=== PATIENT | female | born 1960 | race Caucasian/White ===

== ENCOUNTER 2022-05-01 07:34 | Inpatient (IN) ==
--- NOTE | 2022-05-01 08:26 | DR.DIZZY ---
HPI Time seen Time Seen by Provider: 05/01/22 08:26 HPI Comment HPI Comment: PATIENT IS 61YR OLD FEMALE WITH HISTORY OF HTN, DYSLIPIDEMIA, S/P TRIPLE VESSEL CABG ON 01/09/2022 IN ER WITH GENERALIZED WEAKNESS, CONFUSION AND DIZZINESS FOR SEVERAL DAYS. PATIENT HAVE NON HEALING WOUND MID LOWER CHEST Complaint Chief Complaint Doctor Comments: GENERALIZED WEAKNESS, CONFUSION AND DIZZINESS TIMES SEVERAL DAYS. COVID-19 Coronavirus risk:travel/contact w/high risk person: No Has patient experienced Coronavirus symptoms: No PMH PMH Past Medical History: Anxiety, Dyslipidemia, Hypertension, Kidney Stones and VT Past Surgical History: Yes Surgical History: CABG/Valve Surgery and Lithotripsy Family History Family Medical History: Coronary Artery Disease and Hypertension Social History Do you use any recreational Drugs:: No Travel Risk Coronavirus risk:travel/contact w/high risk person: No Has patient experienced Coronavirus symptoms: No PE Vital Signs Vitals: Temperature 98.7 F Pulse Rate [Right Radial] 76 Pulse Rate 78 Respiratory Rate 22 Blood Pressure [Right Arm] 121/57 Blood Pressure 150/64 O2 Sat by Pulse Oximetry 97 ROR Labs Reviewed Result Diagrams: 05/05/22 05:20 05/05/22 05:20 Laboratory: 05/01/22 09:15 Blood Blood Culture - Final Enterobacter Cloacae 05/01/22 10:00 Chest Wound Gram Stain - Final 05/01/22 10:00 Chest Wound Culture - Final Proteus Mirabilis Staphylococcus Aureus Enterobacter Cloacae 05/01/22 09:27 Blood Blood Culture - Preliminary 05/01/22 07:19 Urine,Catheterized Urine Culture - Final Proteus Mirabilis WBC 8.7 X10^3/uL (3.6-10.0) 05/02/22 04:00 RBC 4.02 X10^6/uL (3.5-5.4) 05/02/22 04:00 Hgb 10.7 g/dL (12.0-16.0) L 05/02/22 04:00 Hct 32.3 % (36.0-47.0) L 05/02/22 04:00 MCV 80.4 fL (80.0-100.0) 05/02/22 04:00 MCH 26.7 pg (27.0-34.0) L 05/02/22 04:00 MCHC 33.3 g/dL (33.0-35.0) 05/02/22 04:00 RDW 17.1 % (11.6-16.5) H 05/02/22 04:00 Plt Count 143 X10^3/uL (150.0-450.0) L 05/02/22 04:00 Plt Count Comment Decreased (ADEQUATE) A 05/02/22 04:00 MPV 11.2 fL (7.4-11.0) H 05/02/22 04:00 Neut % (Auto) 68.5 % (42.0-75.0) 05/02/22 04:00 Lymph % (Auto) 9.6 % (21.0-51.0) L 05/02/22 04:00 [place] % (Auto) 14.1 % (0.0-13.0) H 05/02/22 04:00 Eos % (Auto) 3.8 % (0.9-2.9) H 05/02/22 04:00 Baso % (Auto) 4.0 % (0.2-1.0) H 05/02/22 04:00 Neut # (Auto) 6.0 x10^3/uL (2.2-4.8) H 05/02/22 04:00 Lymph # (Auto) 0.8 X10^3/uL (1.3-2.9) L 05/02/22 04:00 [place] # (Auto) 1.2 x10^3/uL (0.3-0.8) H 05/02/22 04:00 Eos # (Auto) 0.3 x10^3/uL (0.0-0.2) H 05/02/22 04:00 Baso # (Auto) 0.3 X10^3/uL (0.0-0.1) H 05/02/22 04:00 Absolute Nucleated RBC 0.1 /100WBC 05/02/22 04:00 Total Counted 100 05/02/22 04:00 Neutrophils % (Manual) 78 % (39-76) H 05/02/22 04:00 Lymphocytes % (Manual) 15 % (13-43) 05/02/22 04:00 Monocytes % (Manual) 5 % (4-9) 05/02/22 04:00 Eosinophils % (Manual) 2 % (0-6) 05/02/22 04:00 Atypical Lymphocytes Few A 05/02/22 04:00 Plt Morphology Comment Normal (NORMAL) 05/02/22 04:00 RBC Morphology Abnormal (NORMAL) A 05/02/22 04:00 Hypochromasia Slight A 05/01/22 09:27 Anisocytosis Slight A 05/02/22 04:00 Microcytosis Slight A 05/01/22 09:27 Sodium 132 mmol/L (136-145) L 05/02/22 04:00 Corrected Sodium 133 mmol/L (136-145) L 05/02/22 04:00 Potassium 4.3 mmol/L (3.5-5.1) 05/02/22 04:00 Chloride 99 mmol/L (98-107) 05/02/22 04:00 Carbon Dioxide 25.3 mmol/L (21-32) 05/02/22 04:00 BUN 31 mg/dL (7-18) H 05/02/22 04:00 Creatinine 1.03 mg/dL (0.55-1.02) H 05/02/22 04:00 Est GFR (MDRD) Af Amer > 60 (>60) 05/02/22 04:00 Est GFR (MDRD) Non-Af 58 (>60) L 05/02/22 04:00 Glucose 128 mg/dL (65-99) H 05/02/22 04:00 POC Glucose (mg/dL) 123 mg/dL (65-99) H 05/02/22 11:08 Lactic Acid 1.6 mmol/L (0.4-2.0) 05/01/22 09:27 Calcium 8.6 mg/dL (8.5-10.1) 05/02/22 04:00 Corrected Calcium 10.2 mg/dL (8.5-10.1) H 05/02/22 04:00 Magnesium 1.9 mg/dL (1.7-2.9) 05/02/22 04:00 Total Bilirubin 0.40 mg/dL (0.2-1.0) 05/02/22 04:00 AST 42 Units/L (15-37) H 05/02/22 04:00 ALT 24 Units/L (12-78) 05/02/22 04:00 Alkaline Phosphatase 117 Units/L (46-116) H 05/02/22 04:00 Creatine Kinase 13 Units/L (26-192) L 05/01/22 21:25 CK-MB (CK-2) < 1.0 ng/mL (0-4.0) 05/01/22 21:25 CK/CKMB % Calc 7.7 % (<4) 05/01/22 21:25 Troponin I High Sens 12.6 ng/L (4.0-60.0) 05/01/22 21:25 Total Protein 6.8 g/dL (6.4-8.2) 05/02/22 04:00 Albumin 2.0 g/dL (3.4-5.0) L 05/02/22 04:00 Globulin 4.8 g/dL (2.5-4.5) H 05/02/22 04:00 Albumin/Globulin Ratio 0.4 Ratio (1.1-2.1) L 05/02/22 04:00 Specimen Type Catherized urine 05/01/22 07:19 Urine Color Yellow (YELLOW) 05/01/22 07:19 Urine Appearance Hazy (CLEAR) 05/01/22 07:19 Urine pH 8.0 (5.0 - 8.0) 05/01/22 07:19 Ur Specific [place] 1.010 (1.000-1.030) 05/01/22 07:19 Urine Protein 3+ (NEGATIVE) 05/01/22 07:19 Urine Glucose (UA) 3+ (NEGATIVE) 05/01/22 07:19 Urine Ketones Negative (NEGATIVE) 05/01/22 07:19 Urine Blood 3+ (NEGATIVE) 05/01/22 07:19 Urine Nitrite Positive (NEGATIVE) 05/01/22 07:19 Urine Bilirubin Negative (NEGATIVE) 05/01/22 07:19 Urine Urobilinogen Normal (NORMAL) 05/01/22 07:19 Ur Leukocyte Esterase 3+ (NEGATIVE) 05/01/22 07:19 Urine RBC 10-20 /HPF (0-3) A 05/01/22 07:19 Urine WBC Tntc /HPF (0-5) A 05/01/22 07:19 Ur Squamous Epith Cells Negative /HPF (NEGATIVE) 05/01/22 07:19 Urine Bacteria 4+ /HPF (NEGATIVE) 05/01/22 07:19 Ur Culture Indicated? Yes/culture set up 05/01/22 07:19 SARS-CoV-2 (PCR) Negative (NEGATIVE) 05/01/22 14:18 Opioid Opioid Risk Tool Age (Tahir box if 16-45): No History of Preadolescent Sexual Abuse: No Total: 0 Total Score Risk Category: Low Risk Copyright: Sesar MANCIA predicting aberrant behaviors Discharge Plan Diagnosis Discharge Problem: Acute dehydration, Acute hyponatremia, Infected surgical wound, UTI (urinary t ract infection) Discharge Plan Patient Disposition: ADMITTED INPATIENT Condition: Stable
[2022-05-01] MEDS ORDERED: ZOFRAN INJ 4 MG VIAL IVP ONE (08:29)
[2022-05-01 08:32] LABS: BILIRUBIN,URINE NEGATIVE (NEGATIVE); BLOOD/HEMOGLOBIN,URINE 3+ (NEGATIVE); GLUCOSE, URINE 3+ (NEGATIVE); KETONES,URINE NEGATIVE (NEGATIVE); LEUKOCYTE ESTERASE ,URINE 3+ (NEGATIVE); NITRITES,URINE POSITIVE (NEGATIVE); PROTEIN,URINE 3+ (NEGATIVE); UROBILINOGEN,URINE NORMAL (NORMAL)
[2022-05-01] MEDS ORDERED: ZOFRAN INJ 4 MG VIAL ONE (08:37)
[2022-05-01] MEDS ORDERED: NS 1,000 ML IV 1,000 ML ONE (08:38)
[2022-05-01 08:40] LABS: APPEARANCE,URINE HAZY (CLEAR); COLOR,URINE YELLOW (YELLOW)
[2022-05-01 08:41] LABS: BACTERIA,URINE 4+ /HPF (NEGATIVE); SQUAMOUS EPITHELIAL CELL,UR NEGATIVE /HPF (NEGATIVE)
[2022-05-01] MEDS ORDERED: NS 1,000 ML IV 1,000 ML IV SCH (09:00)
--- NOTE | 2022-05-01 09:24 | RAD ---
PROCEDURE: Chest X-ray 1 View .HISTORY: CHEST PAIN, WEAKNESS .TECHNIQUE: AP view .COMPARISON: 04/19/2022.TECHNICAL QUALITY: Lordotic positioning.FINDINGS:Unchanged heart size mildly enlarged with pacemaker on the left and previous sternotomy.Mediastinum and hilar regions show no masses or lymphadenopathy. Aortic arch calcifications.Normal central vascularity .Unchanged bibasilar atelectasis and small effusions. No definite consolidation or mass.No acute bony abnormality .IMPRESSION:1. Unchanged mild cardiomegaly.2. Unchanged atelectasis and pleural fluid lung bases.Electronically signed by: Kamron Wheeler (May 01, 2022 09:22:43)
[2022-05-01 09:49] LABS: BASOPHILS % (AUTO) 0.4 % (0.2-1.0); EOSINOPHILS # (AUTO) 0.1 x10^3/uL (0.0-0.2); EOSINOPHILS % (AUTO) 1.5 % (0.9-2.9); HEMATOCRIT 34.7 % (36.0-47.0); HEMOGLOBIN 11.4 g/dL (12.0-16.0); LYMPHOCYTES # (AUTO) 1.3 X10^3/uL (1.3-2.9); LYMPHOCYTES % (AUTO) 13.6 % (21.0-51.0); MEAN CORPUSCULAR HEMOGLOBIN 26.2 pg (27.0-34.0); MEAN CORPUSCULAR VOLUME 79.5 fL (80.0-100.0); MEAN PLATELET VOLUME 11.1 fL (7.4-11.0); MONOCYTES # (AUTO) 1.3 x10^3/uL (0.3-0.8); NEUTROPHILS # (AUTO) 6.6 x10^3/uL (2.2-4.8); NEUTROPHILS % (AUTO) 70.5 % (42.0-75.0); RED BLOOD COUNT 4.36 X10^6/uL (3.5-5.4); RED CELL DISTRIBUTION WIDTH 17.1 % (11.6-16.5); WHITE BLOOD COUNT 9.4 X10^3/uL (3.6-10.0)
[2022-05-01 09:56] LABS: LACTIC ACID 1.6 mmol/L (0.4-2.0)
[2022-05-01 10:00] LABS: ALANINE AMINOTRANSFERASE 22 Units/L (12-78); ALBUMIN 2.5 g/dL (3.4-5.0); ALKALINE PHOSPHATASE 129 Units/L (46-116); ASPARTATE AMINO TRANSFERASE 32 Units/L (15-37); BLOOD UREA NITROGEN 46 mg/dL (7-18); CALCIUM 9.2 mg/dL (8.5-10.1); CARBON DIOXIDE 29.3 mmol/L (21-32); CHLORIDE 95 mmol/L (98-107); CKMB % 5.9 % (<4); COR CA(FOR HYPOALB) 10.4 mg/dL (8.5-10.1); COR NA(FOR HYPERGLY) 132 mmol/L (136-145); CREATINE KINASE 17 Units/L (26-192); CREATINE KINASE MB < 1.0 ng/mL (0-4.0); CREATININE 1.48 mg/dL (0.55-1.02); SODIUM 129 mmol/L (136-145); TOTAL PROTEIN 7.8 g/dL (6.4-8.2); eGFR NON BLACK RACES 38 (>60)
[2022-05-01 10:10] LABS: PLATELET MORPHOLOGY COMMENT NORMAL (NORMAL)
[2022-05-01 10:11] LABS: ANISOCYTOSIS SLIGHT; HYPOCHROMASIA SLIGHT; MICROCYTOSIS SLIGHT
[2022-05-01] MEDS ORDERED: ROCEPHIN 1 GRAM IV PREMIX 1 G/50 ML IV.SOLN. IV ONE (12:44)
[2022-05-01] MEDS ORDERED: ROCEPHIN VIAL 1 GRAM ONE (12:50)
[2022-05-01] MEDS ORDERED: NS 50 ML IV 50 ML IV ONE (12:50)
[2022-05-01] MEDS ORDERED: PHARMACY CONSULT - VANCOMYCIN XX SCH (14:00)
[2022-05-01] MEDS: NS 1,000 ML IV 1,000 ML IV SCH (14:52)
[2022-05-01] MEDS ORDERED: VANCOMYCIN IV *PREMIX 1 G/200 ML BAG 1 G/200 ML PIGGYBACK IV SCH (17:00)
[2022-05-01] MEDS: ULTRAM PO PRN (17:26)
[2022-05-01] MEDS: XANAX PO PRN (18:18)
[2022-05-01] MEDS: SNACK - Diabetic Appropriate PO SCH (21:08)
[2022-05-01] MEDS ORDERED: LEXAPRO ONE (21:15)
[2022-05-01] MEDS: LEXAPRO PO SCH (21:15)
[2022-05-01] MEDS: NEURONTIN CAP 300 MG PO SCH (21:16)
[2022-05-01 22:12] LABS: CKMB % 7.7 % (<4); CREATINE KINASE 13 Units/L (26-192); CREATINE KINASE MB < 1.0 ng/mL (0-4.0)
[2022-05-02] MEDS: XANAX PO PRN (01:40)
[2022-05-02] MEDS: NS 1,000 ML IV 1,000 ML IV SCH ×3 (02:07→17:12)
[2022-05-02] MEDS: ULTRAM PO PRN ×2 (03:18→14:41)
[2022-05-02 05:08] LABS: BASOPHILS # (AUTO) 0.3 X10^3/uL (0.0-0.1); EOSINOPHILS # (AUTO) 0.3 x10^3/uL (0.0-0.2); EOSINOPHILS % (AUTO) 3.8 % (0.9-2.9); HEMATOCRIT 32.3 % (36.0-47.0); HEMOGLOBIN 10.7 g/dL (12.0-16.0); LYMPHOCYTES # (AUTO) 0.8 X10^3/uL (1.3-2.9); LYMPHOCYTES % (AUTO) 9.6 % (21.0-51.0); MEAN CORPUSCULAR HEMOGLOBIN 26.7 pg (27.0-34.0); MEAN CORPUSCULAR HGB CONC 33.3 g/dL (33.0-35.0); MEAN CORPUSCULAR VOLUME 80.4 fL (80.0-100.0); MEAN PLATELET VOLUME 11.2 fL (7.4-11.0); MONOCYTES # (AUTO) 1.2 x10^3/uL (0.3-0.8); MONOCYTES % (AUTO) 14.1 % (0.0-13.0); NEUTROPHILS % (AUTO) 68.5 % (42.0-75.0); RED BLOOD COUNT 4.02 X10^6/uL (3.5-5.4); RED CELL DISTRIBUTION WIDTH 17.1 % (11.6-16.5); WHITE BLOOD COUNT 8.7 X10^3/uL (3.6-10.0)
[2022-05-02 05:29] LABS: ALANINE AMINOTRANSFERASE 24 Units/L (12-78); ALKALINE PHOSPHATASE 117 Units/L (46-116); ASPARTATE AMINO TRANSFERASE 42 Units/L (15-37); BLOOD UREA NITROGEN 31 mg/dL (7-18); CALCIUM 8.6 mg/dL (8.5-10.1); CARBON DIOXIDE 25.3 mmol/L (21-32); CHLORIDE 99 mmol/L (98-107); COR CA(FOR HYPOALB) 10.2 mg/dL (8.5-10.1); COR NA(FOR HYPERGLY) 133 mmol/L (136-145); CREATININE 1.03 mg/dL (0.55-1.02); MAGNESIUM 1.9 mg/dL (1.7-2.9); SODIUM 132 mmol/L (136-145); TOTAL PROTEIN 6.8 g/dL (6.4-8.2); eGFR NON BLACK RACES 58 (>60)
[2022-05-02] MEDS: NEURONTIN CAP 300 MG PO SCH ×3 (05:43→21:00)
[2022-05-02 05:53] LABS: ANISOCYTOSIS SLIGHT; PLATELET MORPHOLOGY COMMENT NORMAL (NORMAL)
[2022-05-02] MEDS ORDERED: ROCEPHIN VIAL 1 GRAM 1 G in NS 100 ML IV 100 ML IV SCH (09:00)
[2022-05-02] MEDS: VANCOMYCIN IV *PREMIX 1 G/200 ML BAG 1 G/200 ML PIGGYBACK IV SCH ×2 (09:51→20:34)
--- NOTE | 2022-05-02 10:24 | DR.H&P ---
H&P History & Physical for Day of: H&P Date: 05/02/22 Chief Complaint Chief Complaint: Weakness, Dizziness Non-healing wound Allergies Allergies Allergy/AdvReac Type Severity Reaction Status Date / Time No Known Drug Allergies Allergy Verified 05/01/22 09:52 History of Present Illness History of Present Illness: Pt is a 61 year old female past medical history of C ABGx3(02/2022), HFrEF(EF 40-45%), Atrial fibrillation, Pacemaker, DMT2, admitted after presenting with symptoms of generalized weakness, dizziness, non-healing mid chest wound. Pt is a poor historian but states that she has been feeling these symptoms for the past week. Her wound appears to have been there for longer. On exam patient has two visible small circular open wounds that have purulent discharge. Labs/imaging: Wbc 8.7, Hgb 10.7, Plt 143, Na 133, K 4.3, Creatinine 1.03, Glucose 128, UA c/w infection, Urine/Wound/Blood cultures pending. CXR was obtained that revealed: 1. Unchanged mild cardiomegaly. 2.Unchanged atelectasis and pleural fluid lung bases. Pt was started on gentle hydration due to history of heart failure, IVF NS@50ml/h, IV antibiotics Vancomycin and Rocephin for cystitis and wound with purulent discharge. Home medications were restarted, along with SSI. Will consult general surgery for further evaluation of wound and order CT chest for further classification and extent, including ruling out abscess. Continue to closely monitor and follow up labs/imaging. Past Medical History Past Medical History: Anxiety, Dyslipidemia, Hypertension, Kidney Stones and DC Past Surgical History Surgical History: CABG/Valve Surgery Family History Family Medical History: Diabetes Mellitus, DC and Hypertension Social History Does patient currently use any type of tobacco product: No Have you used tobacco products in the last 12 months: No Type of Tobacco Use: None Does any household member use tobacco: Yes (oldest son) Alcohol Use: None Drug Use: None Medications Home Medications: No Known Drug Allergies Allergy (Verified 05/01/22 09:52) CONTINUE taking the following medications alprazolam 0.25 mg tablet 0.25 mg PO TID PRN 05/01/22 [History] amiodarone 200 mg tablet 200 mg PO BID 05/01/22 [History] aspirin 81 mg tablet,delayed release 81 mg PO QDAY 05/01/22 [History] atorvastatin 40 mg tablet 40 mg PO QDAY 05/01/22 [History] benzonatate 100 mg capsule 100 mg PO TID PRN 05/01/22 [History] bisoprolol fumarate 5 mg tablet 5 mg PO BID 05/01/22 [History] escitalopram oxalate 5 mg tablet 5 mg PO QACDINNER 05/01/22 [History] furosemide 20 mg tablet 20 mg PO BID 05/01/22 [History] gabapentin 300 mg capsule 300 mg PO TID 05/01/22 [History] insulin glargine U-300 conc 300 unit/mL (3 mL) subcutaneous pen (Toujeo Max U- 300 SoloStar) 55 unit subcut QDAY 05/01/22 [History] potassium chloride 10 mEq capsule,extended release 20 meq PO BID 05/01/22 [H istory] tramadol 50 mg tablet 50 mg PO Q6H PRN 05/01/22 [History] zolpidem 5 mg tablet (Ambien) 5 mg PO QHS PRN 05/01/22 [History] Labs Result Diagrams: 05/02/22 04:00 05/02/22 04:00 Labs: 05/01/22 10:00 Chest Wound Gram Stain - Final 05/01/22 10:00 Chest Wound Culture - Preliminary 05/01/22 07:19 Urine,Catheterized Urine Culture - Preliminary 05/01/22 09:15 Blood Blood Culture - Preliminary Laboratory WBC 8.7 X10^3/uL (3.6-10.0) 05/02/22 04:00 RBC 4.02 X10^6/uL (3.5-5.4) 05/02/22 04:00 Hgb 10.7 g/dL (12.0-16.0) L 05/02/22 04:00 Hct 32.3 % (36.0-47.0) L 05/02/22 04:00 MCV 80.4 fL (80.0-100.0) 05/02/22 04:00 MCH 26.7 pg (27.0-34.0) L 05/02/22 04:00 MCHC 33.3 g/dL (33.0-35.0) 05/02/22 04:00 RDW 17.1 % (11.6-16.5) H 05/02/22 04:00 Plt Count 143 X10^3/uL (150.0-450.0) L 05/02/22 04:00 Plt Count Comment Decreased (ADEQUATE) A 05/02/22 04:00 MPV 11.2 fL (7.4-11.0) H 05/02/22 04:00 Neut % (Auto) 68.5 % (42.0-75.0) 05/02/22 04:00 Lymph % (Auto) 9.6 % (21.0-51.0) L 05/02/22 04:00 [place] % (Auto) 14.1 % (0.0-13.0) H 05/02/22 04:00 Eos % (Auto) 3.8 % (0.9-2.9) H 05/02/22 04:00 Baso % (Auto) 4.0 % (0.2-1.0) H 05/02/22 04:00 Neut # (Auto) 6.0 x10^3/uL (2.2-4.8) H 05/02/22 04:00 Lymph # (Auto) 0.8 X10^3/uL (1.3-2.9) L 05/02/22 04:00 [place] # (Auto) 1.2 x10^3/uL (0.3-0.8) H 05/02/22 04:00 Eos # (Auto) 0.3 x10^3/uL (0.0-0.2) H 05/02/22 04:00 Baso # (Auto) 0.3 X10^3/uL (0.0-0.1) H 05/02/22 04:00 Absolute Nucleated RBC 0.1 /100WBC 05/02/22 04:00 Total Counted 100 05/02/22 04:00 Neutrophils % (Manual) 78 % (39-76) H 05/02/22 04:00 Lymphocytes % (Manual) 15 % (13-43) 05/02/22 04:00 Monocytes % (Manual) 5 % (4-9) 05/02/22 04:00 Eosinophils % (Manual) 2 % (0-6) 05/02/22 04:00 Atypical Lymphocytes Few A 05/02/22 04:00 Plt Morphology Comment Normal (NORMAL) 05/02/22 04:00 RBC Morphology Abnormal (NORMAL) A 05/02/22 04:00 Hypochromasia Slight A 05/01/22 09:27 Anisocytosis Slight A 05/02/22 04:00 Microcytosis Slight A 05/01/22 09:27 Sodium 132 mmol/L (136-145) L 05/02/22 04:00 Corrected Sodium 133 mmol/L (136-145) L 05/02/22 04:00 Potassium 4.3 mmol/L (3.5-5.1) 05/02/22 04:00 Chloride 99 mmol/L (98-107) 05/02/22 04:00 Carbon Dioxide 25.3 mmol/L (21-32) 05/02/22 04:00 BUN 31 mg/dL (7-18) H 05/02/22 04:00 Creatinine 1.03 mg/dL (0.55-1.02) H 05/02/22 04:00 Est GFR (MDRD) Af Amer > 60 (>60) 05/02/22 04:00 Est GFR (MDRD) Non-Af 58 (>60) L 05/02/22 04:00 Glucose 128 mg/dL (65-99) H 05/02/22 04:00 POC Glucose (mg/dL) 137 mg/dL (65-99) H 05/01/22 21:06 Lactic Acid 1.6 mmol/L (0.4-2.0) 05/01/22 09:27 Calcium 8.6 mg/dL (8.5-10.1) 05/02/22 04:00 Corrected Calcium 10.2 mg/dL (8.5-10.1) H 05/02/22 04:00 Magnesium 1.9 mg/dL (1.7-2.9) 05/02/22 04:00 Total Bilirubin 0.40 mg/dL (0.2-1.0) 05/02/22 04:00 AST 42 Units/L (15-37) H 05/02/22 04:00 ALT 24 Units/L (12-78) 05/02/22 04:00 Alkaline Phosphatase 117 Units/L (46-116) H 05/02/22 04:00 Creatine Kinase 13 Units/L (26-192) L 05/01/22 21:25 CK-MB (CK-2) < 1.0 ng/mL (0-4.0) 05/01/22 21:25 CK/CKMB % Calc 7.7 % (<4) 05/01/22 21:25 Troponin I High Sens 12.6 ng/L (4.0-60.0) 05/01/22 21:25 Total Protein 6.8 g/dL (6.4-8.2) 05/02/22 04:00 Albumin 2.0 g/dL (3.4-5.0) L 05/02/22 04:00 Globulin 4.8 g/dL (2.5-4.5) H 05/02/22 04:00 Albumin/Globulin Ratio 0.4 Ratio (1.1-2.1) L 05/02/22 04:00 Specimen Type Catherized urine 05/01/22 07:19 Urine Color Yellow (YELLOW) 05/01/22 07:19 Urine Appearance Hazy (CLEAR) 05/01/22 07:19 Urine pH 8.0 (5.0 - 8.0) 05/01/22 07:19 Ur Specific [place] 1.010 (1.000-1.030) 05/01/22 07:19 Urine Protein 3+ (NEGATIVE) 05/01/22 07:19 Urine Glucose (UA) 3+ (NEGATIVE) 05/01/22 07:19 Urine Ketones Negative (NEGATIVE) 05/01/22 07:19 Urine Blood 3+ (NEGATIVE) 05/01/22 07:19 Urine Nitrite Positive (NEGATIVE) 05/01/22 07:19 Urine Bilirubin Negative (NEGATIVE) 05/01/22 07:19 Urine Urobilinogen Normal (NORMAL) 05/01/22 07:19 Ur Leukocyte Esterase 3+ (NEGATIVE) 05/01/22 07:19 Urine RBC 10-20 /HPF (0-3) A 05/01/22 07:19 Urine WBC Tntc /HPF (0-5) A 05/01/22 07:19 Ur Squamous Epith Cells Negative /HPF (NEGATIVE) 05/01/22 07:19 Urine Bacteria 4+ /HPF (NEGATIVE) 05/01/22 07:19 Ur Culture Indicated? Yes/culture set up 05/01/22 07:19 SARS-CoV-2 (PCR) Negative (NEGATIVE) 05/01/22 14:18 Review of Systems Constitutional: Weakness Eyes: No Symptoms Reported ENT: No Symptoms Reported Respiratory: No Symptoms Reported Cardiovascular: No Symptoms Reported Gastrointestinal: No Symptoms Reported Genitourinary: No Symptoms Reported Musculoskeletal: No Symptoms Reported Skin: Wound (mid chest) Neurological: No Symptoms Reported Physical Exam Vital Signs: Temperature 98.4 F Pulse Rate [Right Radial] 76 Pulse Rate 78 Respiratory Rate 20 Blood Pressure [Right Arm] 126/57 Blood Pressure 150/64 O2 Sat by Pulse Oximetry 96 Oriented: Normal Eyes: Normal Ear: Normal Nose: Normal Throat: Normal Respiratory: Clear Throughout Cardiovascular: Normal : Normal Auscultation: Bowel Sounds: Normal Palpation: Normal Tenderness: Normal Skin: Wound (two circular wounds with purulent discharge mid chest) Musculoskeletal: Normal Psychiatric: Normal Mood Description: Calm and Appropriate Affect: Normal Speech Pattern: Clear and Appropriate Assessment/Plan (1) Acute dehydration: Status: Acute (2) Acute hyponatremia: Status: Acute (3) Infected surgical wound: Status: Acute (4) UTI (urinary tract infection): Status: Acute Review H&P Reviewed: Yes Patient was examined?: Yes
[2022-05-02] MEDS: LOVENOX INJ 40 MG SYR SC SCH (10:54)
[2022-05-02] MEDS: ASPIRIN EC 81 MG PO SCH (10:54)
[2022-05-02] MEDS: CORDARONE TAB 200 MG PO SCH ×2 (10:54→20:35)
[2022-05-02] MEDS: LIPITOR TAB 40 MG PO SCH (10:54)
[2022-05-02] MEDS: ZEBETA TAB 5 MG PO SCH ×2 (10:55→20:34)
[2022-05-02] MEDS ORDERED: NS 100 ML IV 100 ML ONE (12:21)
[2022-05-02] MEDS: LASIX PO SCH (14:18)
--- NOTE | 2022-05-02 16:09 | CT ---
HISTORYCHEST WALL WOUND R/O ABCESSSTUDYCHEST WITH CONCOMPARISONNone available.TECHNIQUEAxial CT images of the chest were obtained after the administration of 100 mL Omnipaque 350 IV contrast. Images were reformatted into the coronal and sagittal planes for further evaluation.Radiation dose: 581.40 mGy-cm total DLPFINDINGSSmall pericardial effusion.Cardiac chambers are mildly enlarged.Pacemaker wires in place.Status post median sternotomy.Dehiscence of the median sternotomy with flocculent material throughout the space between the margins of the sternum from the thoracic inlet to the xiphoid process; consistent with an abscess. Collection measures up to 3 cm wide at the upper portion of the mediastinum and extends to the anterior aspect of the left heart border, at the level of the main pulmonary artery, measuring up to 2 cm in thickness. Cutaneous defect along the inferior margin of the sternum, at the level of the xiphoid process, with a tract towards the skin and bandage material in place.Thyroid appears normal.Central airways are widely patent.Esophagus appears normal.Limited evaluation of the upper abdomen is unremarkable.Large bilateral partially loculated pleural effusions with adjacent atelectasis.No pneumothorax.IMPRESSION1. Dehiscence of the median sternotomy with a flocculent collection throughout the space between the margins of the sternum from the thoracic inlet to the xiphoid process; consistent with an extensive abscess.2. Large partially loculated pleural effusions with adjacent atelectasis.Electronically signed by: Jassi Singh (May 02, 2022 16:08:17)
[2022-05-02] MEDS: SNACK - Diabetic Appropriate PO SCH (20:07)
[2022-05-02] MEDS ORDERED: LEXAPRO ONE (20:21)
[2022-05-02] MEDS: LEXAPRO PO SCH (20:34)
[2022-05-02] MEDS: MICRO K EXTEN CAP 10 MEQ PO SCH (20:35)
[2022-05-02] MEDS ORDERED: AMBIEN PO SCH (21:00)
[2022-05-03] MEDS: XANAX PO PRN ×3 (00:49→18:46)
[2022-05-03] MEDS: NS 1,000 ML IV 1,000 ML IV SCH ×2 (04:26→18:47)
[2022-05-03 04:36] LABS: BASOPHILS # (AUTO) 0.1 X10^3/uL (0.0-0.1); BASOPHILS % (AUTO) 1.5 % (0.2-1.0); EOSINOPHILS # (AUTO) 0.2 x10^3/uL (0.0-0.2); EOSINOPHILS % (AUTO) 2.3 % (0.9-2.9); HEMATOCRIT 32.1 % (36.0-47.0); HEMOGLOBIN 10.3 g/dL (12.0-16.0); LYMPHOCYTES % (AUTO) 13.1 % (21.0-51.0); MEAN CORPUSCULAR HEMOGLOBIN 25.8 pg (27.0-34.0); MEAN CORPUSCULAR HGB CONC 32.2 g/dL (33.0-35.0); MEAN CORPUSCULAR VOLUME 80.1 fL (80.0-100.0); MEAN PLATELET VOLUME 10.6 fL (7.4-11.0); MONOCYTES # (AUTO) 1.1 x10^3/uL (0.3-0.8); NEUTROPHILS # (AUTO) 5.3 x10^3/uL (2.2-4.8); NEUTROPHILS % (AUTO) 69.1 % (42.0-75.0); RED BLOOD COUNT 4.01 X10^6/uL (3.5-5.4); RED CELL DISTRIBUTION WIDTH 17.3 % (11.6-16.5); WHITE BLOOD COUNT 7.7 X10^3/uL (3.6-10.0)
[2022-05-03 04:49] LABS: ALANINE AMINOTRANSFERASE 22 Units/L (12-78); ALBUMIN 1.9 g/dL (3.4-5.0); ALKALINE PHOSPHATASE 125 Units/L (46-116); ASPARTATE AMINO TRANSFERASE 36 Units/L (15-37); BLOOD UREA NITROGEN 24 mg/dL (7-18); CALCIUM 8.8 mg/dL (8.5-10.1); CARBON DIOXIDE 26.1 mmol/L (21-32); CHLORIDE 100 mmol/L (98-107); COR CA(FOR HYPOALB) 10.5 mg/dL (8.5-10.1); CREATININE 0.88 mg/dL (0.55-1.02); SODIUM 133 mmol/L (136-145); TOTAL PROTEIN 6.5 g/dL (6.4-8.2); eGFR NON BLACK RACES > 60 (>60)
[2022-05-03] MEDS: NEURONTIN CAP 300 MG PO SCH ×3 (05:34→21:01)
[2022-05-03] MEDS: CORDARONE TAB 200 MG PO SCH ×3 (07:37→20:37)
[2022-05-03] MEDS: ULTRAM PO PRN ×2 (07:54→14:16)
--- NOTE | 2022-05-03 08:08 | PCM.PROG ---
Progress Note Progress Note for Day of Date of Exam: 05/03/22 Subjective Subjective: Pt is a 61 year old female past medical history of CABGx3(02/2022), HFrEF(EF 40-45%), Atrial fibrillation, Pacemaker, DMT2, admitted for acute cystitis, non-healing mid chest wound. This morning she appears to be more alert. She is still having copious discharge from sternum. Labs/imaging: Wbc 7.7, Hgb 10.3, Plt 177, Na 133, K 4.5, Creatinine 0.88, Glucose 98, Urine culture positive for proteus mirabilis, Wound culture positive for staph aureus, Blood cultures prelim positive for gram negative rods. CT chest was obtained that revealed: 1. Dehiscence of the median sternotomy with a flocculent collection throughout the space between the margins of the sternum from the thoracic inlet to the xiphoid process; consistent with an extensive abscess. 2. Large partially loculated pleural effusions with adjacent atelectasis. Pt is currently receiving: IVF NS@50ml/h, IV antibiotics Vancomycin, Rocephin. Will change rocephin to zosyn. Home medications were resumed, and patient is on SSI. General surgery consulted for further evaluation of abscess seen on CT chest, follow up recommendations. Will need to contract hospital/cardiothoracic surgeon in [place], [place] where procedure was performed for possible transfer. Continue to closely monitor and follow up labs/imaging. Time spent on clinical assessment, reviewing labs and imaging, decision making, and documentation greater than 45 minutes. Past Medical Family Social History Allergies: Allergies No Known Drug Allergies Allergy (Verified 05/01/22 09:52) Review of Systems ROS: No change since H&P Vital Signs and I&O's Vital Signs: Temperature 98.5 F Pulse Rate [Right Radial] 82 Pulse Rate 78 Respiratory Rate 20 Blood Pressure [Right Arm] 149/83 Blood Pressure 150/64 O2 Sat by Pulse Oximetry 96 Intake and Output: Intake & Output 04/30/22 05/01/22 05/02/22 05/03/22 23:59 23:59 23:59 23:59 Intake Total 480 / 480 4478 / 4478 980 / 980 Output Total 625 / 625 1150 / 1150 225 / 225 Balance -145 / -145 3328 / 3328 755 / 755 Physical Exam Oriented: Normal Eyes: Normal Ear: Normal Nose: Normal Throat: Normal Cardiovascular: Normal : Normal Auscultation: Bowel Sounds: Normal Tenderness: Normal Skin: Wound (dehiscence sternum) Musculoskeletal: Normal Psychiatric: Normal Mood Description: Calm and Appropriate Affect: Normal Speech Pattern: Clear and Appropriate Laboratory and Diagnostics Result Diagrams: 05/03/22 04:00 05/03/22 09:05 Labs: 05/01/22 10:00 Chest Wound Gram Stain - Final 05/01/22 10:00 Chest Wound Culture - Preliminary 05/01/22 07:19 Urine,Catheterized Urine Culture - Preliminary 05/01/22 09:15 Blood Blood Culture - Preliminary Laboratory WBC 7.7 X10^3/uL (3.6-10.0) 05/03/22 04:00 RBC 4.01 X10^6/uL (3.5-5.4) 05/03/22 04:00 Hgb 10.3 g/dL (12.0-16.0) L 05/03/22 04:00 Hct 32.1 % (36.0-47.0) L 05/03/22 04:00 MCV 80.1 fL (80.0-100.0) 05/03/22 04:00 MCH 25.8 pg (27.0-34.0) L 05/03/22 04:00 MCHC 32.2 g/dL (33.0-35.0) L 05/03/22 04:00 RDW 17.3 % (11.6-16.5) H 05/03/22 04:00 Plt Count 177 X10^3/uL (150.0-450.0) 05/03/22 04:00 Plt Count Comment Decreased (ADEQUATE) A 05/02/22 04:00 MPV 10.6 fL (7.4-11.0) 05/03/22 04:00 Neut % (Auto) 69.1 % (42.0-75.0) 05/03/22 04:00 Lymph % (Auto) 13.1 % (21.0-51.0) L 05/03/22 04:00 [place] % (Auto) 14.0 % (0.0-13.0) H 05/03/22 04:00 Eos % (Auto) 2.3 % (0.9-2.9) 05/03/22 04:00 Baso % (Auto) 1.5 % (0.2-1.0) H 05/03/22 04:00 Neut # (Auto) 5.3 x10^3/uL (2.2-4.8) H 05/03/22 04:00 Lymph # (Auto) 1.0 X10^3/uL (1.3-2.9) L 05/03/22 04:00 [place] # (Auto) 1.1 x10^3/uL (0.3-0.8) H 05/03/22 04:00 Eos # (Auto) 0.2 x10^3/uL (0.0-0.2) 05/03/22 04:00 Baso # (Auto) 0.1 X10^3/uL (0.0-0.1) 05/03/22 04:00 Absolute Nucleated RBC 0.0 /100WBC 05/03/22 04:00 Total Counted 100 05/02/22 04:00 Neutrophils % (Manual) 78 % (39-76) H 05/02/22 04:00 Lymphocytes % (Manual) 15 % (13-43) 05/02/22 04:00 Monocytes % (Manual) 5 % (4-9) 05/02/22 04:00 Eosinophils % (Manual) 2 % (0-6) 05/02/22 04:00 Atypical Lymphocytes Few A 05/02/22 04:00 Plt Morphology Comment Normal (NORMAL) 05/02/22 04:00 RBC Morphology Abnormal (NORMAL) A 05/02/22 04:00 Hypochromasia Slight A 05/01/22 09:27 Anisocytosis Slight A 05/02/22 04:00 Microcytosis Slight A 05/01/22 09:27 Sodium 133 mmol/L (136-145) L 05/03/22 04:00 Corrected Sodium TNP 05/03/22 04:00 Potassium 4.5 mmol/L (3.5-5.1) 05/03/22 04:00 Chloride 100 mmol/L (98-107) 05/03/22 04:00 Carbon Dioxide 26.1 mmol/L (21-32) 05/03/22 04:00 BUN 24 mg/dL (7-18) H 05/03/22 04:00 Creatinine 0.88 mg/dL (0.55-1.02) 05/03/22 04:00 Est GFR (MDRD) Af Amer > 60 (>60) 05/03/22 04:00 Est GFR (MDRD) Non-Af > 60 (>60) 05/03/22 04:00 Glucose 98 mg/dL (65-99) 05/03/22 04:00 POC Glucose (mg/dL) 111 mg/dL (65-99) H 05/02/22 19:08 Lactic Acid 1.6 mmol/L (0.4-2.0) 05/01/22 09:27 Calcium 8.8 mg/dL (8.5-10.1) 05/03/22 04:00 Corrected Calcium 10.5 mg/dL (8.5-10.1) H 05/03/22 04:00 Magnesium 1.9 mg/dL (1.7-2.9) 05/02/22 04:00 Total Bilirubin 0.40 mg/dL (0.2-1.0) 05/03/22 04:00 AST 36 Units/L (15-37) 05/03/22 04:00 ALT 22 Units/L (12-78) 05/03/22 04:00 Alkaline Phosphatase 125 Units/L (46-116) H 05/03/22 04:00 Creatine Kinase 13 Units/L (26-192) L 05/01/22 21:25 CK-MB (CK-2) < 1.0 ng/mL (0-4.0) 05/01/22 21:25 CK/CKMB % Calc 7.7 % (<4) 05/01/22 21:25 Troponin I High Sens 12.6 ng/L (4.0-60.0) 05/01/22 21:25 Total Protein 6.5 g/dL (6.4-8.2) 05/03/22 04:00 Albumin 1.9 g/dL (3.4-5.0) L 05/03/22 04:00 Globulin 4.6 g/dL (2.5-4.5) H 05/03/22 04:00 Albumin/Globulin Ratio 0.4 Ratio (1.1-2.1) L 05/03/22 04:00 Specimen Type Catherized urine 05/01/22 07:19 Urine Color Yellow (YELLOW) 05/01/22 07:19 Urine Appearance Hazy (CLEAR) 05/01/22 07:19 Urine pH 8.0 (5.0 - 8.0) 05/01/22 07:19 Ur Specific [place] 1.010 (1.000-1.030) 05/01/22 07:19 Urine Protein 3+ (NEGATIVE) 05/01/22 07:19 Urine Glucose (UA) 3+ (NEGATIVE) 05/01/22 07:19 Urine Ketones Negative (NEGATIVE) 05/01/22 07:19 Urine Blood 3+ (NEGATIVE) 05/01/22 07:19 Urine Nitrite Positive (NEGATIVE) 05/01/22 07:19 Urine Bilirubin Negative (NEGATIVE) 05/01/22 07:19 Urine Urobilinogen Normal (NORMAL) 05/01/22 07:19 Ur Leukocyte Esterase 3+ (NEGATIVE) 05/01/22 07:19 Urine RBC 10-20 /HPF (0-3) A 05/01/22 07:19 Urine WBC Tntc /HPF (0-5) A 05/01/22 07:19 Ur Squamous Epith Cells Negative /HPF (NEGATIVE) 05/01/22 07:19 Urine Bacteria 4+ /HPF (NEGATIVE) 05/01/22 07:19 Ur Culture Indicated? Yes/culture set up 05/01/22 07:19 SARS-CoV-2 (PCR) Negative (NEGATIVE) 05/01/22 14:18 Plan (1) Dehiscence of closure of sternum or sternotomy: Status: Acute (2) Acute cystitis: Status: Acute (3) Acute dehydration: Status: Acute (4) Acute hyponatremia: Status: Acute (5) Infected surgical wound: Status: Acute
[2022-05-03] MEDS ORDERED: PHARMACY COMMENT IV ONE (08:30)
[2022-05-03] MEDS: ZOSYN VIAL 3.375 GRAMS 3.375 G in NS 100 ML IV 100 ML IV SCH ×3 (08:38→21:36)
[2022-05-03] MEDS: LOVENOX INJ 40 MG SYR SC SCH (08:42)
[2022-05-03] MEDS: MICRO K EXTEN CAP 10 MEQ PO SCH ×2 (08:43→20:57)
[2022-05-03] MEDS: ASPIRIN EC 81 MG PO SCH (08:43)
[2022-05-03] MEDS: LIPITOR TAB 40 MG PO SCH (08:44)
[2022-05-03] MEDS: ZEBETA TAB 5 MG PO SCH ×2 (08:44→20:42)
[2022-05-03] MEDS: VANCOMYCIN IV *PREMIX 1 G/200 ML BAG 1 G/200 ML PIGGYBACK IV SCH ×2 (08:44→20:35)
[2022-05-03] MEDS: LASIX PO SCH ×2 (08:47→14:16)
[2022-05-03 09:44] LABS: CREATININE 0.88 mg/dL (0.55-1.02); VANCOMYCIN,TROUGH 13.7 ug/mL (15-20)
[2022-05-03] MEDS ORDERED: LEXAPRO ONE (19:48)
[2022-05-03] MEDS: LEXAPRO PO SCH (20:38)
[2022-05-03] MEDS: RESTORIL CAP 15 MG PO SCH (20:41)
[2022-05-03] MEDS: SNACK - Diabetic Appropriate PO SCH (20:56)
[2022-05-04] MEDS: XANAX PO PRN ×3 (00:08→14:06)
[2022-05-04] MEDS: ULTRAM PO PRN ×4 (00:08→20:40)
[2022-05-04] MEDS: ZOSYN VIAL 3.375 GRAMS 3.375 G in NS 100 ML IV 100 ML IV SCH (05:13)
[2022-05-04] MEDS: NEURONTIN CAP 300 MG PO SCH ×3 (05:13→20:29)
[2022-05-04 06:17] LABS: BASOPHILS % (AUTO) 0.6 % (0.2-1.0); EOSINOPHILS # (AUTO) 0.1 x10^3/uL (0.0-0.2); EOSINOPHILS % (AUTO) 1.9 % (0.9-2.9); HEMOGLOBIN 11.1 g/dL (12.0-16.0); LYMPHOCYTES % (AUTO) 16.6 % (21.0-51.0); MEAN CORPUSCULAR HEMOGLOBIN 26.4 pg (27.0-34.0); MEAN CORPUSCULAR HGB CONC 32.5 g/dL (33.0-35.0); MEAN CORPUSCULAR VOLUME 81.1 fL (80.0-100.0); MEAN PLATELET VOLUME 9.3 fL (7.4-11.0); MONOCYTES # (AUTO) 0.9 x10^3/uL (0.3-0.8); MONOCYTES % (AUTO) 15.7 % (0.0-13.0); NEUTROPHILS # (AUTO) 3.9 x10^3/uL (2.2-4.8); NEUTROPHILS % (AUTO) 65.2 % (42.0-75.0); RED CELL DISTRIBUTION WIDTH 17.5 % (11.6-16.5); WHITE BLOOD COUNT 6.1 X10^3/uL (3.6-10.0)
[2022-05-04 06:28] LABS: ALANINE AMINOTRANSFERASE 20 Units/L (12-78); ALKALINE PHOSPHATASE 141 Units/L (46-116); ASPARTATE AMINO TRANSFERASE 37 Units/L (15-37); BLOOD UREA NITROGEN 24 mg/dL (7-18); CALCIUM 8.9 mg/dL (8.5-10.1); CARBON DIOXIDE 26.6 mmol/L (21-32); CHLORIDE 101 mmol/L (98-107); COR CA(FOR HYPOALB) 10.5 mg/dL (8.5-10.1); COR NA(FOR HYPERGLY) 134 mmol/L (136-145); MAGNESIUM 1.7 mg/dL (1.7-2.9); SODIUM 133 mmol/L (136-145); TOTAL PROTEIN 6.8 g/dL (6.4-8.2); eGFR NON BLACK RACES 53 (>60)
[2022-05-04] MEDS: VANCOMYCIN IV *PREMIX 1 G/200 ML BAG 1 G/200 ML PIGGYBACK IV SCH ×2 (09:11→20:41)
[2022-05-04] MEDS: ZEBETA TAB 5 MG PO SCH ×2 (09:12→20:31)
[2022-05-04] MEDS: ASPIRIN EC 81 MG PO SCH (09:12)
[2022-05-04] MEDS: LIPITOR TAB 40 MG PO SCH (09:12)
[2022-05-04] MEDS: NS 1,000 ML IV 1,000 ML IV SCH ×2 (09:13→20:40)
[2022-05-04] MEDS: MICRO K EXTEN CAP 10 MEQ PO SCH ×3 (09:13→23:09)
[2022-05-04] MEDS: LASIX PO SCH ×2 (09:14→14:05)
[2022-05-04] MEDS: LOVENOX INJ 40 MG SYR SC SCH (10:07)
[2022-05-04] MEDS: CORDARONE TAB 200 MG PO SCH ×2 (10:07→20:32)
--- NOTE | 2022-05-04 11:36 | PCM.PROG ---
Progress Note Progress Note for Day of Date of Exam: 05/04/22 Subjective Subjective: Pt is a 61 year old female past medical history of CABGx3(02/2022), HFrEF(EF 40-45%), Atrial fibrillation, Pacemaker, DMT2, admitted for acute cystitis and dehiscence of the median sternotomy with a flocculent collection throughout the space between the margins of the sternum from the thoracic inlet to the xiphoid process; consistent with an extensive abscess that was noted on CT chest. This morning she remains alert. She is still having copious discharge from sternum. Labs/imaging: Wbc 6.1, Hgb 11.1, Plt 216, Na 134, K 4.7, Creatinine 1.10, Glucose 129, Urine culture positive for proteus mirabilis, Wound culture positive for staph aureus, proteus mirabilis, and enterobacter cloacae. Blood cultures prelim positive for gram negative rods 1/2. Pt is currently recieving: IVF NS@50ml/h, IV antibiotics Vancomycin, Rocephin. Will change rocephin to Levoquin for empiric coverage. Home medications were resumed, and patient is on SSI. General surgery consulted, is helping with wound care but recommends transfer to tertiary care facility. Multiple attempts made to contact [facility] in [place], [place] through Transfer line and was told no bed available and to retry 4-6 hours later. Attempted to contact patient's cardiothoracic surgeon Dr Zoran Bradford that performed CABG in February 2022 with now post-op complication. Was told that he was not available. Charge nurse contacted his clinic multiple times so that I may discuss his patient. Finally, was contacted by physician. He stated that there is nothing he can do for patient even though he understood that we are only a critical access hospital and that this is a post-op complication of one of his patients. [place] told either it was too risky for them to attempt procedure on another surgeon's patient or that facility was on diversion and no beds available. This is an unfortunate outcome as we have been trying all day to try and get patient transferred. We will continue to try and provide the best care we can with our resources. Will continue to closely monitor and follow up labs/imaging. Time spent on clinical assessment, reviewing labs and imaging, decision making, and documentation greater than 75 minutes. Past Medical Family Social History Allergies: Allergies No Known Drug Allergies Allergy (Verified 05/01/22 09:52) Review of Systems ROS: No change since H&P Vital Signs and I&O's Vital Signs: Temperature 97.6 F Pulse Rate [Right Radial] 76 Pulse Rate 78 Respiratory Rate 20 Blood Pressure [Right Arm] 139/83 Blood Pressure 150/64 O2 Sat by Pulse Oximetry 98 Intake and Output: Intake & Output 05/01/22 05/02/22 05/03/22 05/04/22 23:59 23:59 23:59 23:59 Intake Total 480 / 480 4478 / 4478 3054 / 3054 260 / 260 Output Total 625 / 625 1150 / 1150 1075 / 1075 220 / 220 Balance -145 / -145 3328 / 3328 1978 40 40 Physical Exam Oriented: Normal Eyes: Normal Ear: Normal Nose: Normal Throat: Normal Cardiovascular: Normal : Normal Auscultation: Bowel Sounds: Normal Tenderness: Normal Skin: Wound (dehiscence sternum) Musculoskeletal: Normal Psychiatric: Normal Mood Description: Calm and Appropriate Affect: Normal Speech Pattern: Clear and Appropriate Laboratory and Diagnostics Result Diagrams: 05/04/22 05:50 05/04/22 21:12 Labs: 05/01/22 10:00 Chest Wound Gram Stain - Final 05/01/22 10:00 Chest Wound Culture - Final Proteus Mirabilis Staphylococcus Aureus Enterobacter Cloacae 05/01/22 09:27 Blood Blood Culture - Preliminary 05/01/22 09:15 Blood Blood Culture - Preliminary 05/01/22 07:19 Urine,Catheterized Urine Culture - Final Proteus Mirabilis Laboratory WBC 6.1 X10^3/uL (3.6-10.0) 05/04/22 05:50 RBC 4.20 X10^6/uL (3.5-5.4) 05/04/22 05:50 Hgb 11.1 g/dL (12.0-16.0) L 05/04/22 05:50 Hct 34.0 % (36.0-47.0) L 05/04/22 05:50 MCV 81.1 fL (80.0-100.0) 05/04/22 05:50 MCH 26.4 pg (27.0-34.0) L 05/04/22 05:50 MCHC 32.5 g/dL (33.0-35.0) L 05/04/22 05:50 RDW 17.5 % (11.6-16.5) H 05/04/22 05:50 Plt Count 216 X10^3/uL (150.0-450.0) 05/04/22 05:50 Plt Count Comment Decreased (ADEQUATE) A 05/02/22 04:00 MPV 9.3 fL (7.4-11.0) 05/04/22 05:50 Neut % (Auto) 65.2 % (42.0-75.0) 05/04/22 05:50 Lymph % (Auto) 16.6 % (21.0-51.0) L 05/04/22 05:50 [place] % (Auto) 15.7 % (0.0-13.0) H 05/04/22 05:50 Eos % (Auto) 1.9 % (0.9-2.9) 05/04/22 05:50 Baso % (Auto) 0.6 % (0.2-1.0) 05/04/22 05:50 Neut # (Auto) 3.9 x10^3/uL (2.2-4.8) 05/04/22 05:50 Lymph # (Auto) 1.0 X10^3/uL (1.3-2.9) L 05/04/22 05:50 [place] # (Auto) 0.9 x10^3/uL (0.3-0.8) H 05/04/22 05:50 Eos # (Auto) 0.1 x10^3/uL (0.0-0.2) 05/04/22 05:50 Baso # (Auto) 0.0 X10^3/uL (0.0-0.1) 05/04/22 05:50 Absolute Nucleated RBC 0.1 /100WBC 05/04/22 05:50 Total Counted 100 05/02/22 04:00 Neutrophils % (Manual) 78 % (39-76) H 05/02/22 04:00 Lymphocytes % (Manual) 15 % (13-43) 05/02/22 04:00 Monocytes % (Manual) 5 % (4-9) 05/02/22 04:00 Eosinophils % (Manual) 2 % (0-6) 05/02/22 04:00 Atypical Lymphocytes Few A 05/02/22 04:00 Plt Morphology Comment Normal (NORMAL) 05/02/22 04:00 RBC Morphology Abnormal (NORMAL) A 05/02/22 04:00 Hypochromasia Slight A 05/01/22 09:27 Anisocytosis Slight A 05/02/22 04:00 Microcytosis Slight A 05/01/22 09:27 Sodium 133 mmol/L (136-145) L 05/04/22 05:50 Corrected Sodium 134 mmol/L (136-145) L 05/04/22 05:50 Potassium 4.7 mmol/L (3.5-5.1) 05/04/22 05:50 Chloride 101 mmol/L (98-107) 05/04/22 05:50 Carbon Dioxide 26.6 mmol/L (21-32) 05/04/22 05:50 BUN 24 mg/dL (7-18) H 05/04/22 05:50 Creatinine 1.10 mg/dL (0.55-1.02) H 05/04/22 05:50 Est GFR (MDRD) Af Amer > 60 (>60) 05/04/22 05:50 Est GFR (MDRD) Non-Af 53 (>60) L 05/04/22 05:50 Glucose 129 mg/dL (65-99) H 05/04/22 05:50 POC Glucose (mg/dL) 110 mg/dL (65-99) H 05/04/22 11:17 Lactic Acid 1.6 mmol/L (0.4-2.0) 05/01/22 09:27 Calcium 8.9 mg/dL (8.5-10.1) 05/04/22 05:50 Corrected Calcium 10.5 mg/dL (8.5-10.1) H 05/04/22 05:50 Magnesium 1.7 mg/dL (1.7-2.9) 05/04/22 05:50 Total Bilirubin 0.50 mg/dL (0.2-1.0) 05/04/22 05:50 AST 37 Units/L (15-37) 05/04/22 05:50 ALT 20 Units/L (12-78) 05/04/22 05:50 Alkaline Phosphatase 141 Units/L (46-116) H 05/04/22 05:50 Creatine Kinase 13 Units/L (26-192) L 05/01/22 21:25 CK-MB (CK-2) < 1.0 ng/mL (0-4.0) 05/01/22 21:25 CK/CKMB % Calc 7.7 % (<4) 05/01/22 21:25 Troponin I High Sens 12.6 ng/L (4.0-60.0) 05/01/22 21:25 Total Protein 6.8 g/dL (6.4-8.2) 05/04/22 05:50 Albumin 2.0 g/dL (3.4-5.0) L 05/04/22 05:50 Globulin 4.8 g/dL (2.5-4.5) H 05/04/22 05:50 Albumin/Globulin Ratio 0.4 Ratio (1.1-2.1) L 05/04/22 05:50 Specimen Type Catherized urine 05/01/22 07:19 Urine Color Yellow (YELLOW) 05/01/22 07:19 Urine Appearance Hazy (CLEAR) 05/01/22 07:19 Urine pH 8.0 (5.0 - 8.0) 05/01/22 07:19 Ur Specific [place] 1.010 (1.000-1.030) 05/01/22 07:19 Urine Protein 3+ (NEGATIVE) 05/01/22 07:19 Urine Glucose (UA) 3+ (NEGATIVE) 05/01/22 07:19 Urine Ketones Negative (NEGATIVE) 05/01/22 07:19 Urine Blood 3+ (NEGATIVE) 05/01/22 07:19 Urine Nitrite Positive (NEGATIVE) 05/01/22 07:19 Urine Bilirubin Negative (NEGATIVE) 05/01/22 07:19 Urine Urobilinogen Normal (NORMAL) 05/01/22 07:19 Ur Leukocyte Esterase 3+ (NEGATIVE) 05/01/22 07:19 Urine RBC 10-20 /HPF (0-3) A 05/01/22 07:19 Urine WBC Tntc /HPF (0-5) A 05/01/22 07:19 Ur Squamous Epith Cells Negative /HPF (NEGATIVE) 05/01/22 07:19 Urine Bacteria 4+ /HPF (NEGATIVE) 05/01/22 07:19 Ur Culture Indicated? Yes/culture set up 05/01/22 07:19 Vancomycin Trough 13.7 ug/mL (15-20) L 05/03/22 09:05 SARS-CoV-2 (PCR) Negative (NEGATIVE) 05/01/22 14:18 Plan (1) Dehiscence of closure of sternum or sternotomy: Status: Acute (2) Acute cystitis: Status: Acute (3) Acute dehydration: Status: Acute (4) Acute hyponatremia: Status: Acute (5) Infected surgical wound: Status: Acute
[2022-05-04] MEDS: LEVAQUIN PREMIX IV 750 MG 750 MG/150 ML BAG IV SCH (14:05)
--- NOTE | 2022-05-04 16:26 | DR.PROGNOT ---
Hospital Progress Notes - Progress Note for Day of: Progress Note Date: 05/04/22 - Chief Complaint Chief Complaint: having large amount of drainage from the chest incision . positive for Staph , Proteas, and entero froilan ( mixed bacteria ). still afebrile . - Past Medical Family Social History Past Med/Fam/Surg Hx: No changes since H&P Allergies: Allergies No Known Drug Allergies Allergy (Verified 05/01/22 09:52) - Review Of Systems ROS: No change since H&P - Vital Signs Vital Signs: Temperature 97.9 F Pulse Rate [Right Radial] 85 Pulse Rate 78 Respiratory Rate 20 Blood Pressure [Right Arm] 111/53 Blood Pressure 150/64 O2 Sat by Pulse Oximetry 97 - Physical Exam Oriented: Normal Eyes: Normal Ear: Normal Nose: Normal Throat: Normal Respiratory: OTHER (infected median sternotomy incision with active drainage .) Cardiovascular: Normal : Normal GI:Auscultation: Normal GI:Palpation: Normal GI: Tenderness: Normal Skin: Wound (dehiscence sternum) Musculoskeletal: Normal Psychiatric: Normal Mood Description: Calm, Appropriate Affect: Normal Speech Pattern: Clear, Appropriate - Laboratory and Diagnostics Result Diagrams: 05/04/22 05:50 05/04/22 05:50 Labs: 05/01/22 10:00 Chest Wound Gram Stain - Final 05/01/22 10:00 Chest Wound Culture - Final Proteus Mirabilis Staphylococcus Aureus Enterobacter Cloacae 05/01/22 09:27 Blood Blood Culture - Preliminary 05/01/22 09:15 Blood Blood Culture - Preliminary 05/01/22 07:19 Urine,Catheterized Urine Culture - Final Proteus Mirabilis Laboratory WBC 6.1 X10^3/uL (3.6-10.0) 05/04/22 05:50 RBC 4.20 X10^6/uL (3.5-5.4) 05/04/22 05:50 Hgb 11.1 g/dL (12.0-16.0) L 05/04/22 05:50 Hct 34.0 % (36.0-47.0) L 05/04/22 05:50 MCV 81.1 fL (80.0-100.0) 05/04/22 05:50 MCH 26.4 pg (27.0-34.0) L 05/04/22 05:50 MCHC 32.5 g/dL (33.0-35.0) L 05/04/22 05:50 RDW 17.5 % (11.6-16.5) H 05/04/22 05:50 Plt Count 216 X10^3/uL (150.0-450.0) 05/04/22 05:50 Plt Count Comment Decreased (ADEQUATE) A 05/02/22 04:00 MPV 9.3 fL (7.4-11.0) 05/04/22 05:50 Neut % (Auto) 65.2 % (42.0-75.0) 05/04/22 05:50 Lymph % (Auto) 16.6 % (21.0-51.0) L 05/04/22 05:50 [place] % (Auto) 15.7 % (0.0-13.0) H 05/04/22 05:50 Eos % (Auto) 1.9 % (0.9-2.9) 05/04/22 05:50 Baso % (Auto) 0.6 % (0.2-1.0) 05/04/22 05:50 Neut # (Auto) 3.9 x10^3/uL (2.2-4.8) 05/04/22 05:50 Lymph # (Auto) 1.0 X10^3/uL (1.3-2.9) L 05/04/22 05:50 [place] # (Auto) 0.9 x10^3/uL (0.3-0.8) H 05/04/22 05:50 Eos # (Auto) 0.1 x10^3/uL (0.0-0.2) 05/04/22 05:50 Baso # (Auto) 0.0 X10^3/uL (0.0-0.1) 05/04/22 05:50 Absolute Nucleated RBC 0.1 /100WBC 05/04/22 05:50 Total Counted 100 05/02/22 04:00 Neutrophils % (Manual) 78 % (39-76) H 05/02/22 04:00 Lymphocytes % (Manual) 15 % (13-43) 05/02/22 04:00 Monocytes % (Manual) 5 % (4-9) 05/02/22 04:00 Eosinophils % (Manual) 2 % (0-6) 05/02/22 04:00 Atypical Lymphocytes Few A 05/02/22 04:00 Plt Morphology Comment Normal (NORMAL) 05/02/22 04:00 RBC Morphology Abnormal (NORMAL) A 05/02/22 04:00 Hypochromasia Slight A 05/01/22 09:27 Anisocytosis Slight A 05/02/22 04:00 Microcytosis Slight A 05/01/22 09:27 Sodium 133 mmol/L (136-145) L 05/04/22 05:50 Corrected Sodium 134 mmol/L (136-145) L 05/04/22 05:50 Potassium 4.7 mmol/L (3.5-5.1) 05/04/22 05:50 Chloride 101 mmol/L (98-107) 05/04/22 05:50 Carbon Dioxide 26.6 mmol/L (21-32) 05/04/22 05:50 BUN 24 mg/dL (7-18) H 05/04/22 05:50 Creatinine 1.10 mg/dL (0.55-1.02) H 05/04/22 05:50 Est GFR (MDRD) Af Amer > 60 (>60) 05/04/22 05:50 Est GFR (MDRD) Non-Af 53 (>60) L 05/04/22 05:50 Glucose 129 mg/dL (65-99) H 05/04/22 05:50 POC Glucose (mg/dL) 110 mg/dL (65-99) H 05/04/22 11:17 Lactic Acid 1.6 mmol/L (0.4-2.0) 05/01/22 09:27 Calcium 8.9 mg/dL (8.5-10.1) 05/04/22 05:50 Corrected Calcium 10.5 mg/dL (8.5-10.1) H 05/04/22 05:50 Magnesium 1.7 mg/dL (1.7-2.9) 05/04/22 05:50 Total Bilirubin 0.50 mg/dL (0.2-1.0) 05/04/22 05:50 AST 37 Units/L (15-37) 05/04/22 05:50 ALT 20 Units/L (12-78) 05/04/22 05:50 Alkaline Phosphatase 141 Units/L (46-116) H 05/04/22 05:50 Creatine Kinase 13 Units/L (26-192) L 05/01/22 21:25 CK-MB (CK-2) < 1.0 ng/mL (0-4.0) 05/01/22 21:25 CK/CKMB % Calc 7.7 % (<4) 05/01/22 21:25 Troponin I High Sens 12.6 ng/L (4.0-60.0) 05/01/22 21:25 Total Protein 6.8 g/dL (6.4-8.2) 05/04/22 05:50 Albumin 2.0 g/dL (3.4-5.0) L 05/04/22 05:50 Globulin 4.8 g/dL (2.5-4.5) H 05/04/22 05:50 Albumin/Globulin Ratio 0.4 Ratio (1.1-2.1) L 05/04/22 05:50 Specimen Type Catherized urine 05/01/22 07:19 Urine Color Yellow (YELLOW) 05/01/22 07:19 Urine Appearance Hazy (CLEAR) 05/01/22 07:19 Urine pH 8.0 (5.0 - 8.0) 05/01/22 07:19 Ur Specific [place] 1.010 (1.000-1.030) 05/01/22 07:19 Urine Protein 3+ (NEGATIVE) 05/01/22 07:19 Urine Glucose (UA) 3+ (NEGATIVE) 05/01/22 07:19 Urine Ketones Negative (NEGATIVE) 05/01/22 07:19 Urine Blood 3+ (NEGATIVE) 05/01/22 07:19 Urine Nitrite Positive (NEGATIVE) 05/01/22 07:19 Urine Bilirubin Negative (NEGATIVE) 05/01/22 07:19 Urine Urobilinogen Normal (NORMAL) 05/01/22 07:19 Ur Leukocyte Esterase 3+ (NEGATIVE) 05/01/22 07:19 Urine RBC 10-20 /HPF (0-3) A 05/01/22 07:19 Urine WBC Tntc /HPF (0-5) A 05/01/22 07:19 Ur Squamous Epith Cells Negative /HPF (NEGATIVE) 05/01/22 07:19 Urine Bacteria 4+ /HPF (NEGATIVE) 05/01/22 07:19 Ur Culture Indicated? Yes/culture set up 05/01/22 07:19 Vancomycin Trough 13.7 ug/mL (15-20) L 05/03/22 09:05 SARS-CoV-2 (PCR) Negative (NEGATIVE) 05/01/22 14:18 - Assessment and Plan 2: infected median sternotomy incision with dehisced incision and deep abscess .could not transfer Pt so far. same local care and IV ABT to cover the Staph and Enterobac . nutritional support and control of DM .. - Problem Patient Problems: Patient Problems Acute dehydration (Acute) E86.0 Acute hyponatremia (Acute) E87.1 Infected surgical wound (Acute) T81.49XA UTI (urinary tract infection) (Acute) N39.0
[2022-05-04] MEDS ORDERED: LEXAPRO ONE (20:13)
[2022-05-04] MEDS: RESTORIL CAP 15 MG PO SCH (20:30)
[2022-05-04] MEDS: LEXAPRO PO SCH (20:36)
[2022-05-04 21:40] LABS: ABG BASE EXCESS -11.3 mmol/L (-2.0-2.0); ABG HCO3 20.3 mmol/L (22-26)
[2022-05-04 21:43] LABS: CKMB % 4.8 % (<4)
[2022-05-04 21:45] LABS: CALCIUM 8.8 mg/dL (8.5-10.1); CARBON DIOXIDE 24.7 mmol/L (21-32); COR CA(FOR HYPOALB) 10.4 mg/dL (8.5-10.1); CREATININE 1.29 mg/dL (0.55-1.02); MAGNESIUM 1.8 mg/dL (1.7-2.9); TOTAL PROTEIN 7.1 g/dL (6.4-8.2)
[2022-05-04] MEDS ORDERED: DIPRIVAN VIAL 20 ML ONE (21:48)
[2022-05-04] MEDS ORDERED: QUELICIN (OR ANECTINE) ONE (21:49)
[2022-05-04] MEDS ORDERED: QUELICIN (OR ANECTINE) IVP ONE (21:50)
[2022-05-04] MEDS ORDERED: DIPRIVAN VIAL IVP ONE (21:52)
[2022-05-04] MEDS ORDERED: DOPAMINE IV PREMIX 400 MG/250 ML 400 MG/250 ML BAG IV PRN (22:00)
[2022-05-04] MEDS ORDERED: ADRENALINE CHL INJ (ABBOJECT) IVP ONE (22:00)
[2022-05-04] MEDS ORDERED: ATROPINE SULFATE ABBOJECT IVP ONE (22:00)
[2022-05-04] MEDS ORDERED: DOPAMINE IV PREMIX 400 MG/250 ML 0 MG/0 ML BAG IV ONE (22:02)
[2022-05-04] MEDS ORDERED: LEVOPHED 8 MG/250 ML IV *PREMIX 8 MG/250 ML PLAST..BAG IV ONE (22:05)
[2022-05-04] MEDS: LEVOPHED 8 MG/250 ML IV *PREMIX 8 MG/250 ML PLAST..BAG IV PRN (22:11)
[2022-05-04] MEDS ORDERED: SODIUM BICARBONATE 8.4% INJ ADULT IVP ONE (22:20)
[2022-05-04] MEDS ORDERED: DIPRIVAN PREMIX 1 GRAM IV 1,000 MG/100 ML VIAL ONE (22:40)
[2022-05-04] MEDS: DIPRIVAN PREMIX 1 GRAM IV 1,000 MG/100 ML VIAL IV PRN (22:45)
--- NOTE | 2022-05-04 22:52 | PCM.PROG ---
Progress Note - Subjective Subjective: Pt is a 61 year old female past medical history of CABGx3(02/2022), HFrEF(EF 40-45%), Atrial fibrillation, Pacemaker, DMT2, admitted for acute cystitis and dehiscence of the median sternotomy with a flocculent collection throughout the space between the margins of the sternum from the thoracic inlet to the xiphoid process; consistent with an extensive abscess that was noted on CT chest. This morning she remains alert. She is still having copious discharge from sternum. Labs/imaging: Wbc 6.1, Hgb 11.1, Plt 216, Na 134, K 4.7, Creatinine 1.10, Glucose 129, Urine culture positive for proteus mirabilis, Wound culture positive for staph aureus, proteus mirabilis, and enterobacter cloacae. Blood cultures prelim positive for gram negative rods 1/2. Pt is currently recieving: IVF NS@50ml/h, IV antibiotics Vancomycin, Rocephin. Will change rocephin to Levoquin for empiric coverage. Home medications were resumed, and patient is on SSI. General surgery consulted, is helping with wound care but recommends transfer to tertiary care facility. Multiple attempts made to contact [facility] in [place], [place] through Transfer line and was told no bed available and to retry 4-6 hours later. Attempted to contact patient's cardiothoracic surgeon Dr Zoran Bradford that performed CABG in February 2022 with now post-op complication. Was told that he was not available. Charge nurse contacted his clinic multiple times so that I may discuss his patient. Finally, was contacted by physician. He stated that there is nothing he can do for patient even though he understood that we are only a critical access hospital and that this is a post-op complication of one of his patients. Tried transferring to multiple facilities in [place] and [place] and was told either it was too risky for them to attempt procedure on another surgeon's patient or that facility was on diversion and no beds available. This is an unfortunate outcome as we have been trying all day to try and get patient transferred. We will continue to try and provide the best care we can with our resources. Will continue to closely monitor and follow up labs/imaging. Time spent on clinical assessment, reviewing labs and imaging, decision making, and documentation greater than 75 minutes. - Past Medical Family Social History Past Med/Fam/Surg Hx: No changes since H&P Allergies: Allergies No Known Drug Allergies Allergy (Verified 05/01/22 09:52) - Review of Systems ROS: No change since H&P - Vital Signs and I&O's Vital Signs: Temperature 97.9 F Pulse Rate [Right Radial] 85 Pulse Rate 78 Respiratory Rate 20 Blood Pressure [Right Arm] 111/53 Blood Pressure 150/64 O2 Sat by Pulse Oximetry 97 Intake and Output: Intake & Output 05/01/22 05/02/22 05/03/22 05/04/22 23:59 23:59 23:59 23:59 Intake Total 480 / 480 4478 / 4478 3054 / 3054 910 / 910 Output Total 625 / 625 1150 / 1150 1075 / 1075 420 / 420 Balance -145 / -145 3328 / 3328 1978 / 1978 490 / 490 - Physical Exam Oriented: Normal Eyes: Normal Ear: Normal Nose: Normal Throat: Normal Respiratory: OTHER (infected median sternotomy incision with active drainage .) Cardiovascular: Normal : Normal Auscultation: Bowel Sounds: Normal Tenderness: Normal Skin: Wound (dehiscence sternum) Musculoskeletal: Normal Psychiatric: Normal Mood Description: Calm, Appropriate Affect: Normal Speech Pattern: Clear, Appropriate - Laboratory and Diagnostics Result Diagrams: 05/04/22 05:50 05/04/22 21:12 Labs: 05/01/22 10:00 Chest Wound Gram Stain - Final 05/01/22 10:00 Chest Wound Culture - Final Proteus Mirabilis Staphylococcus Aureus Enterobacter Cloacae 05/01/22 09:27 Blood Blood Culture - Preliminary 05/01/22 09:15 Blood Blood Culture - Preliminary 05/01/22 07:19 Urine,Catheterized Urine Culture - Final Proteus Mirabilis Laboratory WBC 6.1 X10^3/uL (3.6-10.0) 05/04/22 05:50 RBC 4.20 X10^6/uL (3.5-5.4) 05/04/22 05:50 Hgb 11.1 g/dL (12.0-16.0) L 05/04/22 05:50 Hct 34.0 % (36.0-47.0) L 05/04/22 05:50 MCV 81.1 fL (80.0-100.0) 05/04/22 05:50 MCH 26.4 pg (27.0-34.0) L 05/04/22 05:50 MCHC 32.5 g/dL (33.0-35.0) L 05/04/22 05:50 RDW 17.5 % (11.6-16.5) H 05/04/22 05:50 Plt Count 216 X10^3/uL (150.0-450.0) 05/04/22 05:50 Plt Count Comment Decreased (ADEQUATE) A 05/02/22 04:00 MPV 9.3 fL (7.4-11.0) 05/04/22 05:50 Neut % (Auto) 65.2 % (42.0-75.0) 05/04/22 05:50 Lymph % (Auto) 16.6 % (21.0-51.0) L 05/04/22 05:50 [place] % (Auto) 15.7 % (0.0-13.0) H 05/04/22 05:50 Eos % (Auto) 1.9 % (0.9-2.9) 05/04/22 05:50 Baso % (Auto) 0.6 % (0.2-1.0) 05/04/22 05:50 Neut # (Auto) 3.9 x10^3/uL (2.2-4.8) 05/04/22 05:50 Lymph # (Auto) 1.0 X10^3/uL (1.3-2.9) L 05/04/22 05:50 [place] # (Auto) 0.9 x10^3/uL (0.3-0.8) H 05/04/22 05:50 Eos # (Auto) 0.1 x10^3/uL (0.0-0.2) 05/04/22 05:50 Baso # (Auto) 0.0 X10^3/uL (0.0-0.1) 05/04/22 05:50 Absolute Nucleated RBC 0.1 /100WBC 05/04/22 05:50 Total Counted 100 05/02/22 04:00 Neutrophils % (Manual) 78 % (39-76) H 05/02/22 04:00 Lymphocytes % (Manual) 15 % (13-43) 05/02/22 04:00 Monocytes % (Manual) 5 % (4-9) 05/02/22 04:00 Eosinophils % (Manual) 2 % (0-6) 05/02/22 04:00 Atypical Lymphocytes Few A 05/02/22 04:00 Plt Morphology Comment Normal (NORMAL) 05/02/22 04:00 RBC Morphology Abnormal (NORMAL) A 05/02/22 04:00 Hypochromasia Slight A 05/01/22 09:27 Anisocytosis Slight A 05/02/22 04:00 Microcytosis Slight A 05/01/22 09:27 Sample Site Lb 05/04/22 21:24 ABG pH 7.040 (7.35-7.45) L* 05/04/22 21:24 ABG pCO2 75.0 mmHg (35.0-45.0) H* 05/04/22 21:24 ABG pO2 37.0 mmHg (80.0-100.0) L* 05/04/22 21:24 ABG HCO3 20.3 mmol/L (22-26) L 05/04/22 21:24 ABG O2 Saturation 43.0 % (90-100) L* 05/04/22 21:24 ABG Base Excess -11.3 mmol/L (-2.0-2.0) L 05/04/22 21:24 Cristobal Test Na 05/04/22 21:24 A-a Gradient 582.0 mmHg 05/04/22 21:24 FiO2 100 05/04/22 21:24 Blood Gas Comments Luis well sw 05/04/22 21:24 Sodium 132 mmol/L (136-145) L 05/04/22 21:12 Corrected Sodium 133 mmol/L (136-145) L 05/04/22 21:12 Potassium 4.7 mmol/L (3.5-5.1) 05/04/22 21:12 Chloride 100 mmol/L (98-107) 05/04/22 21:12 Carbon Dioxide 24.7 mmol/L (21-32) 05/04/22 21:12 BUN 25 mg/dL (7-18) H 05/04/22 21:12 Creatinine 1.29 mg/dL (0.55-1.02) H 05/04/22 21:12 Est GFR (MDRD) Af Amer 54 (>60) L 05/04/22 21:12 Est GFR (MDRD) Non-Af 44 (>60) L 05/04/22 21:12 Glucose 153 mg/dL (65-99) H 05/04/22 21:12 POC Glucose (mg/dL) 131 mg/dL (65-99) H 05/04/22 16:47 Lactic Acid 1.6 mmol/L (0.4-2.0) 05/01/22 09:27 Calcium 8.8 mg/dL (8.5-10.1) 05/04/22 21:12 Corrected Calcium 10.4 mg/dL (8.5-10.1) H 05/04/22 21:12 Magnesium 1.8 mg/dL (1.7-2.9) 05/04/22 21:12 Total Bilirubin 0.40 mg/dL (0.2-1.0) 05/04/22 21:12 AST 36 Units/L (15-37) 05/04/22 21:12 ALT 23 Units/L (12-78) 05/04/22 21:12 Alkaline Phosphatase 141 Units/L (46-116) H 05/04/22 21:12 Creatine Kinase 21 Units/L (26-192) L 05/04/22 21:12 CK-MB (CK-2) 1.0 ng/mL (0-4.0) 05/04/22 21:12 CK/CKMB % Calc 4.8 % (<4) 05/04/22 21:12 Troponin I High Sens 10.0 ng/L (4.0-60.0) 05/04/22 21:12 Total Protein 7.1 g/dL (6.4-8.2) 05/04/22 21:12 Albumin 2.0 g/dL (3.4-5.0) L 05/04/22 21:12 Globulin 5.1 g/dL (2.5-4.5) H 05/04/22 21:12 Albumin/Globulin Ratio 0.4 Ratio (1.1-2.1) L 05/04/22 21:12 Specimen Type Catherized urine 05/01/22 07:19 Urine Color Yellow (YELLOW) 05/01/22 07:19 Urine Appearance Hazy (CLEAR) 05/01/22 07:19 Urine pH 8.0 (5.0 - 8.0) 05/01/22 07:19 Ur Specific [place] 1.010 (1.000-1.030) 05/01/22 07:19 Urine Protein 3+ (NEGATIVE) 05/01/22 07:19 Urine Glucose (UA) 3+ (NEGATIVE) 05/01/22 07:19 Urine Ketones Negative (NEGATIVE) 05/01/22 07:19 Urine Blood 3+ (NEGATIVE) 05/01/22 07:19 Urine Nitrite Positive (NEGATIVE) 05/01/22 07:19 Urine Bilirubin Negative (NEGATIVE) 05/01/22 07:19 Urine Urobilinogen Normal (NORMAL) 05/01/22 07:19 Ur Leukocyte Esterase 3+ (NEGATIVE) 05/01/22 07:19 Urine RBC 10-20 /HPF (0-3) A 05/01/22 07:19 Urine WBC Tntc /HPF (0-5) A 05/01/22 07:19 Ur Squamous Epith Cells Negative /HPF (NEGATIVE) 05/01/22 07:19 Urine Bacteria 4+ /HPF (NEGATIVE) 05/01/22 07:19 Ur Culture Indicated? Yes/culture set up 05/01/22 07:19 Vancomycin Trough 13.7 ug/mL (15-20) L 05/03/22 09:05 SARS-CoV-2 (PCR) Negative (NEGATIVE) 05/01/22 14:18 Procedures (ALL) - Central Line Placement PCM.CLCO: verbal consent Time out performed: Yes Patient placed pm monitor/pulse ox: Yes MD prep: mask, gown, gloves, other Centrial line prep: chlorhexidine scrub, sterile drapes applied Ultrasound used for placement: Yes Central line lumen ininserted: triple Post procedure: sutured in place, good blood return, all ports aspirated, flushed,capped, sterile dressing applied Post procedure xray: tip oc catheter in good position, no pneumothorax seen Complications: none
[2022-05-04] MEDS: SNACK - Diabetic Appropriate PO SCH (23:04)
--- NOTE | 2022-05-04 23:53 | RAD ---
HISTORYCENTRAL LINE PLACEMENT/ ET TUBE PLACEMENTSTUDYCHEST, 1 VIEWCOMPARISONJuly 2021.TECHNIQUEA single frontal view of the chest was obtained.FINDINGSThere is a right central line with its tip overlying the expected location of the right atrium. The patient is s/p median sternotomy. However, the sternotomy wires are predominately right of midline. There is a permanent pacemaker overlying the left chest wall with its proximal lead in the right atrium and distal lead in the right ventricle. The ET tube overlies the trachea at the level of the aortic knob.There are multiple EKG leads and wires seen overlying the patient. The heart is normal in size. There is increased hazy density throughout both lungs with a small left pleural effusion encasing the left lung base and a minimal right pleural effusion. There is no pneumothorax. The osseous structures are intact.IMPRESSIONLines and tubes as noted above. Please note the right central line tip overlies right atrium. This could be retracted approximately 5 cm to overlie the superior vena cava.Status post median sternotomy with the lower sternotomy wires predominately within the right of midline.Pulmonary edema with small bilateral pleural effusions, worse on the left than the right.Electronically signed by: Iram Sparks (May 04, 2022 23:51:20)
[2022-05-05 00:16] LABS: ABG HCO3 19.6 mmol/L (22-26)
[2022-05-05 00:18] LABS: ABG ALLEN TEST POS
--- NOTE | 2022-05-05 02:30 | RAD ---
PROCEDURE: Abdomen X-ray 1 View .HISTORY: NG TUBE PLACEMENT .TECHNIQUE: AP supine abdomen view .COMPARISON: 04/14/2022.TECHNICAL QUALITY: Satisfactory .FINDINGS:NG tube tip is projected over the right lower lobe consistent with placement in the right mainstem bronchus and should be removed and replaced.No dilated bowel loops.Gallstones right upper quadrant.IMPRESSION:NG tube in the right mainstem bronchus extending into the right lower lobe and should be removed and replaced.Electronically signed by: Kamron Wheeler (May 05, 2022 02:28:26)
--- NOTE | 2022-05-05 04:31 | RAD ---
PROCEDURE: Abdomen X-ray 1 View .HISTORY: NG TUBE PLACEMENT .TECHNIQUE: AP supine abdomen view .COMPARISON: 05/05/2022 abdomen view done at 2 a.m..TECHNICAL QUALITY: Satisfactory .FINDINGS:NG tube tip is projected over the body of the stomach with the side hole at the gastroesophageal junction and repositioning more distally 5 cm recommended.No dilated bowel loops.Gallstones right abdomen.IMPRESSION:NG tube tip in the body of the stomach with the side hole at the GE junction and repositioning more distally 5 cm recommended.Electronically signed by: Kamron Wheeler (May 05, 2022 04:29:33)
--- NOTE | 2022-05-05 04:34 | RAD ---
PROCEDURE: Chest X-ray 1 View .HISTORY: Intubation.TECHNIQUE: AP portable done at 3:38 a.m..COMPARISON: 05/04/2022.TECHNICAL QUALITY: Satisfactory .FINDINGS:Endotracheal tube tip 3.5 cm above the calixto. NG tube in the stomach. Pacemaker on the left. Right internal jugular central venous line in good position.Unchanged mild cardiomegaly.Mediastinum and hilar regions show no masses or lymphadenopathy .Normal central vascularity .Increasing consolidation lung bases could be related to edema, pneumonia, or atelectasis. Unchanged small effusions bilaterally.No acute bony abnormality .IMPRESSION:1. Good endotracheal tube placement.2. Increasing density both lung bases could be related to edema, pneumonia, or atelectasis.3. Unchanged mild cardiomegaly.4. Unchanged small pleural effusion.Electronically signed by: Kamron Wheeler (May 05, 2022 04:33:27)
[2022-05-05 05:43] LABS: ABG ALLEN TEST POS; ABG BASE EXCESS -6.3 mmol/L (-2.0-2.0)
[2022-05-05] MEDS: DIPRIVAN PREMIX 1 GRAM IV 1,000 MG/100 ML VIAL IV PRN ×3 (05:45→22:09)
[2022-05-05 05:54] LABS: BASOPHILS % (AUTO) 0.3 % (0.2-1.0); HEMATOCRIT 31.5 % (36.0-47.0); HEMOGLOBIN 10.1 g/dL (12.0-16.0); LYMPHOCYTES # (AUTO) 0.7 X10^3/uL (1.3-2.9); LYMPHOCYTES % (AUTO) 6.5 % (21.0-51.0); MEAN CORPUSCULAR HEMOGLOBIN 25.9 pg (27.0-34.0); MEAN CORPUSCULAR VOLUME 80.8 fL (80.0-100.0); MEAN PLATELET VOLUME 9.3 fL (7.4-11.0); MONOCYTES % (AUTO) 8.7 % (0.0-13.0); NEUTROPHILS # (AUTO) 9.7 x10^3/uL (2.2-4.8); NEUTROPHILS % (AUTO) 84.5 % (42.0-75.0); RED CELL DISTRIBUTION WIDTH 17.3 % (11.6-16.5); WHITE BLOOD COUNT 11.5 X10^3/uL (3.6-10.0)
--- NOTE | 2022-05-05 06:00 | RAD ---
PROCEDURE: Abdomen X-ray 1 View .HISTORY: NG TUBE PLACEMENT .TECHNIQUE: AP supine abdomen view .COMPARISON: 05/05/2022.TECHNICAL QUALITY: Satisfactory .FINDINGS:NG tube tip projected over the body of the stomach in good position.No dilated bowel loops.IMPRESSION:Good NG-tube placement.Electronically signed by: Kamron Wheeler (May 05, 2022 05:58:33)
[2022-05-05] MEDS: NEURONTIN CAP 300 MG PO SCH ×3 (06:05→21:45)
[2022-05-05 06:09] LABS: ALBUMIN 1.7 g/dL (3.4-5.0); CALCIUM 8.5 mg/dL (8.5-10.1); CARBON DIOXIDE 19.9 mmol/L (21-32); COR CA(FOR HYPOALB) 10.3 mg/dL (8.5-10.1); CREATININE 1.26 mg/dL (0.55-1.02); TOTAL PROTEIN 6.1 g/dL (6.4-8.2)
--- NOTE | 2022-05-05 08:57 | PCM.PROG ---
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 Overnight, pt experienced increased work of breathing, change in mental status, noted dyspnea, with oxygen saturations dropping into 80s. She was intubated and placed on mechanical ventilator, during which her blood pressure and pulse dropped. ACLS protocol was initiated and atropine was given that she responded to. Pt was placed on vasopressors Leveophed and Dopamine gtt for blood pressure support. Vent settings are currently: AC, RR 15, TV 450, PEEP 5, FiO2 65%. She is sedated with propofol, has central line and NGT placed. Labs/imaging: Wbc 11.5, Hgb 10.1, Plt 324, Na 137, K 4.5, Creatinine 1.26, Glucose 287, LA 2.2, Wound culture positive for staph aureus, proteus mirabilis, and enterobacter cloacae. CXR was obtained that revealed: Increasing density both lung bases could be related to edema, pneumonia, or atelectasis. Pt is currently receiving: IVF NS@125ml/h, IV antibiotics Vancomycin, Levaquin, SSI. Repeat blood cultures. Wean/titrate vasopressors and FiO2 as tolerated. Pt now with sepsis, which is an unfortunate complication to an already difficult situation. Her prognosis remains poor at this time. We did attempt to try transfer to critical care at [facility] without success. I believe at this point we have exhausted our attempts in any type of transfer as patient's condition continues to deteriorate and without accepting physician from other facilities. Will continue with treatments and care. I have discussed patient's prognosis with father. Will need to re-evaluate code status with family. Continue to closely monitor and follow up labs/imaging. Critical care time spent on clinical assessment, reviewing labs and imaging, decision making, and documentation greater than 75 minutes. Past Medical Family Social History Past Med/Fam/Surg Hx: No changes since H&P Allergies: Allergies No Known Drug Allergies Allergy (Verified 05/01/22 09:52) Review of Systems ROS: Changes notes (describe) (See HPI) Vital Signs and I&O's Vital Signs: Temperature 98.4 F Pulse Rate [Right Radial] 80 Pulse Rate 75 Respiratory Rate 15 Blood Pressure [Right Arm] 138/90 Blood Pressure 129/59 O2 Sat by Pulse Oximetry 98 Intake and Output: Intake & Output 05/02/22 05/03/22 05/04/22 05/05/22 23:59 23:59 23:59 23:59 Intake Total 4478 / 4478 3054 / 3054 2374 / 2374 467 / 467 Output Total 1150 / 1150 1075 / 1075 640 / 640 275 / 275 Balance 3328 / 3328 1978 / 1978 1734 / 1734 192 / 192 Physical Exam Oriented: Normal Eyes: Normal Ear: Normal Nose: Normal Throat: Normal Respiratory: OTHER (infected median sternotomy incision with active drainage .) Cardiovascular: Normal : Normal Auscultation: Bowel Sounds: Normal Tenderness: Normal Skin: Wound (dehiscence sternum) Musculoskeletal: Normal Psychiatric: Normal Mood Description: Calm and Appropriate Affect: Normal Speech Pattern: Artificially Ventilated Laboratory and Diagnostics Result Diagrams: 05/05/22 05:20 05/05/22 05:20 Labs: 05/01/22 09:15 Blood Blood Culture - Final Enterobacter Cloacae 05/01/22 10:00 Chest Wound Gram Stain - Final 05/01/22 10:00 Chest Wound Culture - Final Proteus Mirabilis Staphylococcus Aureus Enterobacter Cloacae 05/01/22 09:27 Blood Blood Culture - Preliminary 05/01/22 07:19 Urine,Catheterized Urine Culture - Final Proteus Mirabilis Laboratory WBC 11.5 X10^3/uL (3.6-10.0) H 05/05/22 05:20 RBC 3.90 X10^6/uL (3.5-5.4) 05/05/22 05:20 Hgb 10.1 g/dL (12.0-16.0) L 05/05/22 05:20 Hct 31.5 % (36.0-47.0) L 05/05/22 05:20 MCV 80.8 fL (80.0-100.0) 05/05/22 05:20 MCH 25.9 pg (27.0-34.0) L 05/05/22 05:20 MCHC 32.0 g/dL (33.0-35.0) L 05/05/22 05:20 RDW 17.3 % (11.6-16.5) H 05/05/22 05:20 Plt Count 324 X10^3/uL (150.0-450.0) 05/05/22 05:20 Plt Count Comment Decreased (ADEQUATE) A 05/02/22 04:00 MPV 9.3 fL (7.4-11.0) 05/05/22 05:20 Neut % (Auto) 84.5 % (42.0-75.0) H 05/05/22 05:20 Lymph % (Auto) 6.5 % (21.0-51.0) L 05/05/22 05:20 [place] % (Auto) 8.7 % (0.0-13.0) 05/05/22 05:20 Eos % (Auto) 0.0 % (0.9-2.9) L 05/05/22 05:20 Baso % (Auto) 0.3 % (0.2-1.0) 05/05/22 05:20 Neut # (Auto) 9.7 x10^3/uL (2.2-4.8) H 05/05/22 05:20 Lymph # (Auto) 0.7 X10^3/uL (1.3-2.9) L 05/05/22 05:20 [place] # (Auto) 1.0 x10^3/uL (0.3-0.8) H 05/05/22 05:20 Eos # (Auto) 0.0 x10^3/uL (0.0-0.2) 05/05/22 05:20 Baso # (Auto) 0.0 X10^3/uL (0.0-0.1) 05/05/22 05:20 Absolute Nucleated RBC 0.1 /100WBC 05/05/22 05:20 Total Counted 100 05/02/22 04:00 Neutrophils % (Manual) 78 % (39-76) H 05/02/22 04:00 Lymphocytes % (Manual) 15 % (13-43) 05/02/22 04:00 Monocytes % (Manual) 5 % (4-9) 05/02/22 04:00 Eosinophils % (Manual) 2 % (0-6) 05/02/22 04:00 Atypical Lymphocytes Few A 05/02/22 04:00 Plt Morphology Comment Normal (NORMAL) 05/02/22 04:00 RBC Morphology Abnormal (NORMAL) A 05/02/22 04:00 Hypochromasia Slight A 05/01/22 09:27 Anisocytosis Slight A 05/02/22 04:00 Microcytosis Slight A 05/01/22 09:27 Sample Site Lr 05/05/22 05:00 ABG pH 7.330 (7.35-7.45) L 05/05/22 05:00 ABG pCO2 36.0 mmHg (35.0-45.0) 05/05/22 05:00 ABG pO2 78.0 mmHg (80.0-100.0) L 05/05/22 05:00 ABG HCO3 19.0 mmol/L (22-26) L 05/05/22 05:00 ABG O2 Saturation 94.0 % (90-100) 05/05/22 05:00 ABG Base Excess -6.3 mmol/L (-2.0-2.0) L 05/05/22 05:00 Cristobal Test Pos 05/05/22 05:00 A-a Gradient 340.0 mmHg 05/05/22 05:00 FiO2 65.0 05/05/22 05:00 Blood Gas Comments [facility] 05/05/22 05:00 Sodium 133 mmol/L (136-145) L 05/05/22 05:20 Corrected Sodium 137 mmol/L (136-145) 05/05/22 05:20 Potassium 4.5 mmol/L (3.5-5.1) 05/05/22 05:20 Chloride 100 mmol/L (98-107) 05/05/22 05:20 Carbon Dioxide 19.9 mmol/L (21-32) L 05/05/22 05:20 BUN 28 mg/dL (7-18) H 05/05/22 05:20 Creatinine 1.26 mg/dL (0.55-1.02) H 05/05/22 05:20 Est GFR (MDRD) Af Amer 55 (>60) L 05/05/22 05:20 Est GFR (MDRD) Non-Af 46 (>60) L 05/05/22 05:20 Glucose 287 mg/dL (65-99) H 05/05/22 05:20 POC Glucose (mg/dL) 131 mg/dL (65-99) H 05/04/22 16:47 Lactic Acid 1.6 mmol/L (0.4-2.0) 05/01/22 09:27 Calcium 8.5 mg/dL (8.5-10.1) 05/05/22 05:20 Corrected Calcium 10.3 mg/dL (8.5-10.1) H 05/05/22 05:20 Magnesium 1.8 mg/dL (1.7-2.9) 05/04/22 21:12 Total Bilirubin 0.50 mg/dL (0.2-1.0) 05/05/22 05:20 AST 51 Units/L (15-37) H 05/05/22 05:20 ALT 29 Units/L (12-78) 05/05/22 05:20 Alkaline Phosphatase 140 Units/L (46-116) H 05/05/22 05:20 Creatine Kinase 21 Units/L (26-192) L 05/04/22 21:12 CK-MB (CK-2) 1.0 ng/mL (0-4.0) 05/04/22 21:12 CK/CKMB % Calc 4.8 % (<4) 05/04/22 21:12 Troponin I High Sens 10.0 ng/L (4.0-60.0) 05/04/22 21:12 Total Protein 6.1 g/dL (6.4-8.2) L 05/05/22 05:20 Albumin 1.7 g/dL (3.4-5.0) L 05/05/22 05:20 Globulin 4.4 g/dL (2.5-4.5) 05/05/22 05:20 Albumin/Globulin Ratio 0.4 Ratio (1.1-2.1) L 05/05/22 05:20 Specimen Type Catherized urine 05/01/22 07:19 Urine Color Yellow (YELLOW) 05/01/22 07:19 Urine Appearance Hazy (CLEAR) 05/01/22 07:19 Urine pH 8.0 (5.0 - 8.0) 05/01/22 07:19 Ur Specific [place] 1.010 (1.000-1.030) 05/01/22 07:19 Urine Protein 3+ (NEGATIVE) 05/01/22 07:19 Urine Glucose (UA) 3+ (NEGATIVE) 05/01/22 07:19 Urine Ketones Negative (NEGATIVE) 05/01/22 07:19 Urine Blood 3+ (NEGATIVE) 05/01/22 07:19 Urine Nitrite Positive (NEGATIVE) 05/01/22 07:19 Urine Bilirubin Negative (NEGATIVE) 05/01/22 07:19 Urine Urobilinogen Normal (NORMAL) 05/01/22 07:19 Ur Leukocyte Esterase 3+ (NEGATIVE) 05/01/22 07:19 Urine RBC 10-20 /HPF (0-3) A 05/01/22 07:19 Urine WBC Tntc /HPF (0-5) A 05/01/22 07:19 Ur Squamous Epith Cells Negative /HPF (NEGATIVE) 05/01/22 07:19 Urine Bacteria 4+ /HPF (NEGATIVE) 05/01/22 07:19 Ur Culture Indicated? Yes/culture set up 05/01/22 07:19 Vancomycin Trough 13.7 ug/mL (15-20) L 05/03/22 09:05 SARS-CoV-2 (PCR) Negative (NEGATIVE) 05/01/22 14:18 Plan (1) Sepsis: Status: Acute (2) Bacteremia due to Enterobacter species: Status: Acute (3) Dehiscence of closure of sternum or sternotomy: Status: Acute (4) Acute cystitis: Status: Acute (5) Acute dehydration: Status: Acute (6) Acute hyponatremia: Status: Acute (7) Infected surgical wound: Status: Acute
[2022-05-05] MEDS: LASIX PO SCH ×2 (09:20→14:20)
[2022-05-05] MEDS: CORDARONE TAB 200 MG PO SCH ×2 (09:21→21:42)
[2022-05-05] MEDS: ASPIRIN EC 81 MG PO SCH (09:21)
[2022-05-05] MEDS: LIPITOR TAB 40 MG PO SCH (09:31)
[2022-05-05] MEDS: VANCOMYCIN IV *PREMIX 1 G/200 ML BAG 1 G/200 ML PIGGYBACK IV SCH ×2 (09:31→21:44)
[2022-05-05] MEDS: ZEBETA TAB 5 MG PO SCH ×2 (09:31→21:45)
[2022-05-05] MEDS: LOVENOX INJ 40 MG SYR SC SCH (09:32)
[2022-05-05] MEDS: MICRO K EXTEN CAP 10 MEQ PO SCH ×2 (09:32→20:11)
[2022-05-05] MEDS: NS 1,000 ML IV 1,000 ML IV SCH (09:47)
[2022-05-05] MEDS: LEVAQUIN PREMIX IV 750 MG 750 MG/150 ML BAG IV SCH (10:30)
[2022-05-05] MEDS: LEVOPHED 8 MG/250 ML IV *PREMIX 8 MG/250 ML PLAST..BAG IV PRN (13:38)
--- NOTE | 2022-05-05 17:01 | DR.PROGNOT ---
Hospital Progress Notes - Progress Note for Day of: Progress Note Date: 05/05/22 - Chief Complaint Chief Complaint: Pt deteriorated last night , required intubation and cardiac support with medications .. dressing was changed and repacked with Iodoform .. - Past Medical Family Social History Past Med/Fam/Surg Hx: No changes since H&P Allergies: Allergies No Known Drug Allergies Allergy (Verified 05/01/22 09:52) - Review Of Systems ROS: Changes notes (describe) (See HPI) - Vital Signs Vital Signs: Temperature 98.1 F Pulse Rate [Right Radial] 80 Pulse Rate 75 Respiratory Rate 27 Blood Pressure [Right Arm] 138/90 Blood Pressure 99/51 O2 Sat by Pulse Oximetry 100 - Physical Exam Oriented: Unable to test (Pt is intubated now ..) Eyes: Normal Ear: Normal Nose: Normal Throat: Normal Respiratory: OTHER (infected median sternotomy incision with active drainage .) Cardiovascular: Normal : Normal GI:Auscultation: Normal GI:Palpation: Normal GI: Tenderness: Normal Skin: Wound (dehiscence of median sternotomy incision with large abscess ) Musculoskeletal: Normal Psychiatric: Normal Mood Description: Calm, Appropriate Affect: Normal Speech Pattern: Artificially Ventilated - Laboratory and Diagnostics Result Diagrams: 05/05/22 05:20 05/05/22 05:20 Labs: 05/01/22 09:15 Blood Blood Culture - Final Enterobacter Cloacae 05/01/22 10:00 Chest Wound Gram Stain - Final 05/01/22 10:00 Chest Wound Culture - Final Proteus Mirabilis Staphylococcus Aureus Enterobacter Cloacae 05/01/22 09:27 Blood Blood Culture - Preliminary 05/01/22 07:19 Urine,Catheterized Urine Culture - Final Proteus Mirabilis Laboratory WBC 11.5 X10^3/uL (3.6-10.0) H 05/05/22 05:20 RBC 3.90 X10^6/uL (3.5-5.4) 05/05/22 05:20 Hgb 10.1 g/dL (12.0-16.0) L 05/05/22 05:20 Hct 31.5 % (36.0-47.0) L 05/05/22 05:20 MCV 80.8 fL (80.0-100.0) 05/05/22 05:20 MCH 25.9 pg (27.0-34.0) L 05/05/22 05:20 MCHC 32.0 g/dL (33.0-35.0) L 05/05/22 05:20 RDW 17.3 % (11.6-16.5) H 05/05/22 05:20 Plt Count 324 X10^3/uL (150.0-450.0) 05/05/22 05:20 Plt Count Comment Decreased (ADEQUATE) A 05/02/22 04:00 MPV 9.3 fL (7.4-11.0) 05/05/22 05:20 Neut % (Auto) 84.5 % (42.0-75.0) H 05/05/22 05:20 Lymph % (Auto) 6.5 % (21.0-51.0) L 05/05/22 05:20 [place] % (Auto) 8.7 % (0.0-13.0) 05/05/22 05:20 Eos % (Auto) 0.0 % (0.9-2.9) L 05/05/22 05:20 Baso % (Auto) 0.3 % (0.2-1.0) 05/05/22 05:20 Neut # (Auto) 9.7 x10^3/uL (2.2-4.8) H 05/05/22 05:20 Lymph # (Auto) 0.7 X10^3/uL (1.3-2.9) L 05/05/22 05:20 [place] # (Auto) 1.0 x10^3/uL (0.3-0.8) H 05/05/22 05:20 Eos # (Auto) 0.0 x10^3/uL (0.0-0.2) 05/05/22 05:20 Baso # (Auto) 0.0 X10^3/uL (0.0-0.1) 05/05/22 05:20 Absolute Nucleated RBC 0.1 /100WBC 05/05/22 05:20 Total Counted 100 05/02/22 04:00 Neutrophils % (Manual) 78 % (39-76) H 05/02/22 04:00 Lymphocytes % (Manual) 15 % (13-43) 05/02/22 04:00 Monocytes % (Manual) 5 % (4-9) 05/02/22 04:00 Eosinophils % (Manual) 2 % (0-6) 05/02/22 04:00 Atypical Lymphocytes Few A 05/02/22 04:00 Plt Morphology Comment Normal (NORMAL) 05/02/22 04:00 RBC Morphology Abnormal (NORMAL) A 05/02/22 04:00 Hypochromasia Slight A 05/01/22 09:27 Anisocytosis Slight A 05/02/22 04:00 Microcytosis Slight A 05/01/22 09:27 Sample Site Lr 05/05/22 05:00 ABG pH 7.330 (7.35-7.45) L 05/05/22 05:00 ABG pCO2 36.0 mmHg (35.0-45.0) 05/05/22 05:00 ABG pO2 78.0 mmHg (80.0-100.0) L 05/05/22 05:00 ABG HCO3 19.0 mmol/L (22-26) L 05/05/22 05:00 ABG O2 Saturation 94.0 % (90-100) 05/05/22 05:00 ABG Base Excess -6.3 mmol/L (-2.0-2.0) L 05/05/22 05:00 Cristobal Test Pos 05/05/22 05:00 A-a Gradient 340.0 mmHg 05/05/22 05:00 FiO2 65.0 05/05/22 05:00 Blood Gas Comments [facility] well 05/05/22 05:00 Sodium 133 mmol/L (136-145) L 05/05/22 05:20 Corrected Sodium 137 mmol/L (136-145) 05/05/22 05:20 Potassium 4.5 mmol/L (3.5-5.1) 05/05/22 05:20 Chloride 100 mmol/L (98-107) 05/05/22 05:20 Carbon Dioxide 19.9 mmol/L (21-32) L 05/05/22 05:20 BUN 28 mg/dL (7-18) H 05/05/22 05:20 Creatinine 1.26 mg/dL (0.55-1.02) H 05/05/22 05:20 Est GFR (MDRD) Af Amer 55 (>60) L 05/05/22 05:20 Est GFR (MDRD) Non-Af 46 (>60) L 05/05/22 05:20 Glucose 287 mg/dL (65-99) H 05/05/22 05:20 POC Glucose (mg/dL) 180 mg/dL (65-99) H 05/05/22 15:54 Lactic Acid 2.2 mmol/L (0.4-2.0) H 05/05/22 08:56 Calcium 8.5 mg/dL (8.5-10.1) 05/05/22 05:20 Corrected Calcium 10.3 mg/dL (8.5-10.1) H 05/05/22 05:20 Magnesium 1.8 mg/dL (1.7-2.9) 05/04/22 21:12 Total Bilirubin 0.50 mg/dL (0.2-1.0) 05/05/22 05:20 AST 51 Units/L (15-37) H 05/05/22 05:20 ALT 29 Units/L (12-78) 05/05/22 05:20 Alkaline Phosphatase 140 Units/L (46-116) H 05/05/22 05:20 Creatine Kinase 21 Units/L (26-192) L 05/04/22 21:12 CK-MB (CK-2) 1.0 ng/mL (0-4.0) 05/04/22 21:12 CK/CKMB % Calc 4.8 % (<4) 05/04/22 21:12 Troponin I High Sens 10.0 ng/L (4.0-60.0) 05/04/22 21:12 Total Protein 6.1 g/dL (6.4-8.2) L 05/05/22 05:20 Albumin 1.7 g/dL (3.4-5.0) L 05/05/22 05:20 Globulin 4.4 g/dL (2.5-4.5) 05/05/22 05:20 Albumin/Globulin Ratio 0.4 Ratio (1.1-2.1) L 05/05/22 05:20 Specimen Type Catherized urine 05/01/22 07:19 Urine Color Yellow (YELLOW) 05/01/22 07:19 Urine Appearance Hazy (CLEAR) 05/01/22 07:19 Urine pH 8.0 (5.0 - 8.0) 05/01/22 07:19 Ur Specific [place] 1.010 (1.000-1.030) 05/01/22 07:19 Urine Protein 3+ (NEGATIVE) 05/01/22 07:19 Urine Glucose (UA) 3+ (NEGATIVE) 05/01/22 07:19 Urine Ketones Negative (NEGATIVE) 05/01/22 07:19 Urine Blood 3+ (NEGATIVE) 05/01/22 07:19 Urine Nitrite Positive (NEGATIVE) 05/01/22 07:19 Urine Bilirubin Negative (NEGATIVE) 05/01/22 07:19 Urine Urobilinogen Normal (NORMAL) 05/01/22 07:19 Ur Leukocyte Esterase 3+ (NEGATIVE) 05/01/22 07:19 Urine RBC 10-20 /HPF (0-3) A 05/01/22 07:19 Urine WBC Tntc /HPF (0-5) A 05/01/22 07:19 Ur Squamous Epith Cells Negative /HPF (NEGATIVE) 05/01/22 07:19 Urine Bacteria 4+ /HPF (NEGATIVE) 05/01/22 07:19 Ur Culture Indicated? Yes/culture set up 05/01/22 07:19 Vancomycin Trough 13.7 ug/mL (15-20) L 05/03/22 09:05 SARS-CoV-2 (PCR) Negative (NEGATIVE) 05/01/22 14:18 - Assessment and Plan 2: infected median sternotomy incision with dehisced incision and deep abscess .could not transfer Pt so far. same local care and IV ABT to cover the Staph and Enterobac . nutritional support and control of DM .. - Problem Patient Problems: Patient Problems Acute dehydration (Acute) E86.0 Acute hyponatremia (Acute) E87.1 Infected surgical wound (Acute) T81.49XA UTI (urinary tract infection) (Acute) N39.0
[2022-05-05] MEDS: SNACK - Diabetic Appropriate PO SCH (20:07)
[2022-05-05] MEDS ORDERED: LEXAPRO ONE (20:29)
[2022-05-05] MEDS ORDERED: SALINE 3% 15 ML NEB TX NEB ONE (20:32)
[2022-05-05 20:33] VITALS: BMI 32.9
[2022-05-05] MEDS ORDERED: KLOR-CON ONE (21:09)
[2022-05-05] MEDS: RESTORIL CAP 15 MG PO SCH (21:44)
[2022-05-05] MEDS: LEXAPRO PO SCH (21:49)
[2022-05-06] MEDS ORDERED: SALINE 0.9% 3 ML NEB TX ONE (02:23)
[2022-05-06] MEDS: DIPRIVAN PREMIX 1 GRAM IV 1,000 MG/100 ML VIAL IV PRN ×5 (02:50→23:54)
[2022-05-06] MEDS: NS 1,000 ML IV 1,000 ML IV SCH ×2 (02:54→10:27)
[2022-05-06 05:16] LABS: BASOPHILS % (AUTO) 0.3 % (0.2-1.0); EOSINOPHILS # (AUTO) 0.1 x10^3/uL (0.0-0.2); EOSINOPHILS % (AUTO) 0.8 % (0.9-2.9); HEMATOCRIT 27.3 % (36.0-47.0); LYMPHOCYTES # (AUTO) 1.8 X10^3/uL (1.3-2.9); LYMPHOCYTES % (AUTO) 18.5 % (21.0-51.0); MEAN CORPUSCULAR HEMOGLOBIN 26.2 pg (27.0-34.0); MEAN CORPUSCULAR HGB CONC 33.1 g/dL (33.0-35.0); MEAN CORPUSCULAR VOLUME 79.2 fL (80.0-100.0); MEAN PLATELET VOLUME 8.7 fL (7.4-11.0); MONOCYTES # (AUTO) 0.9 x10^3/uL (0.3-0.8); MONOCYTES % (AUTO) 9.2 % (0.0-13.0); NEUTROPHILS # (AUTO) 6.9 x10^3/uL (2.2-4.8); NEUTROPHILS % (AUTO) 71.2 % (42.0-75.0); RED BLOOD COUNT 3.44 X10^6/uL (3.5-5.4); RED CELL DISTRIBUTION WIDTH 17.4 % (11.6-16.5); WHITE BLOOD COUNT 9.7 X10^3/uL (3.6-10.0)
[2022-05-06 05:22] LABS: ALANINE AMINOTRANSFERASE 22 Units/L (12-78); ALBUMIN 1.4 g/dL (3.4-5.0); ALKALINE PHOSPHATASE 122 Units/L (46-116); ASPARTATE AMINO TRANSFERASE 41 Units/L (15-37); BLOOD UREA NITROGEN 23 mg/dL (7-18); CALCIUM 8.2 mg/dL (8.5-10.1); CARBON DIOXIDE 20.7 mmol/L (21-32); CHLORIDE 104 mmol/L (98-107); COR CA(FOR HYPOALB) 10.3 mg/dL (8.5-10.1); COR NA(FOR HYPERGLY) 138 mmol/L (136-145); CREATININE 1.09 mg/dL (0.55-1.02); SODIUM 135 mmol/L (136-145); TOTAL PROTEIN 5.6 g/dL (6.4-8.2); eGFR NON BLACK RACES 54 (>60)
[2022-05-06 05:59] LABS: ABG ALLEN TEST POS; ABG BASE EXCESS -2.7 mmol/L (-2.0-2.0); ABG HCO3 19.7 mmol/L (22-26)
--- NOTE | 2022-05-06 06:26 | RAD ---
HISTORYRespiratory failure, dehiscence median sternotomySTUDYChest AP [id number]/13/2022 chest x-ray, CT chest with contrast 05/02/2022FINDINGSPatient is rotated to the left. There is an endotracheal tube in good position. There is a right IJ line in good position. There is a nasogastric tube coursing below the left hemidiaphragm. Its tip is not visible. Patient is status post median sternotomy. There is a pacemaker present on the left. Heart is enlarged. No definite congestive heart failure is noted. The upper lung [place] remain clear. Haziness in both lung bases is likely due to a combination of pleural effusions and underlying infiltrate and is unchanged. Bony thorax is unremarkable.IMPRESSIONContinued cardiomegalyHaziness in the lower lung [place] bilaterally is due to pleural effusions and likely some underlying atelectasis or infiltrateElectronically signed by: CELINA BOWLES (May 06, 2022 06:25:37)
[2022-05-06] MEDS: NEURONTIN CAP 300 MG PO SCH ×3 (07:12→21:44)
[2022-05-06] MEDS: ASPIRIN EC 81 MG PO SCH (08:29)
[2022-05-06] MEDS: LOVENOX INJ 40 MG SYR SC SCH (08:29)
[2022-05-06] MEDS: LEVAQUIN PREMIX IV 750 MG 750 MG/150 ML BAG IV SCH (08:29)
[2022-05-06] MEDS: LIPITOR TAB 40 MG PO SCH (08:29)
[2022-05-06] MEDS: CORDARONE TAB 200 MG PO SCH ×2 (08:29→21:43)
[2022-05-06] MEDS: LASIX PO SCH (08:29)
[2022-05-06] MEDS: MICRO K EXTEN CAP 10 MEQ PO SCH (08:30)
[2022-05-06 09:41] LABS: CREATININE 1.07 mg/dL (0.55-1.02)
[2022-05-06 09:42] LABS: VANCOMYCIN,TROUGH 28.8 ug/mL (15-20)
[2022-05-06] MEDS: VANCOMYCIN IV *PREMIX 1 G/200 ML BAG 1 G/200 ML PIGGYBACK IV SCH (09:42)
[2022-05-06] MEDS: ZEBETA TAB 5 MG PO SCH ×2 (09:42→21:45)
[2022-05-06] MEDS: LASIX IVP SCH (13:38)
--- NOTE | 2022-05-06 13:44 | PCM.PROG ---
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 This morning patient remains on the mechanical ventilator. Vent settings are currently: AC, RR 15, TV 450, PEEP 5, FiO2 50%. Pt is currently requiring vasopressors on Levophed gtt for blood pressure support. She is sedated with propofol, has central line and NGT placed. Labs/imaging: Wbc 9.7, Hgb 9.0, Plt 278, Na 135, K 3.8, Creatinine 1.09, Glucose 232, Wound culture positive for staph aureus, proteus mirabilis, and enterobacter cloacae. CXR was obtained that revealed: Continued cardiomegaly. Haziness in the lower lung polk bilaterally is due to pleural effusions and likely some underlying atelectasis or infiltrate. Pt is currently receiving: IVF NS@125ml/h, IV antibiotics Vancomycin, Levaquin, SSI. Repeat blood cultures pending. Wean/titrate vasopressors and FiO2 as tolerated. Patient's prognosis continues to remain poor at this time. Will continue with treatments and care. I have discussed patient's prognosis with father, he did sign a limited DNR today. We will continue to re-evaluate code status and alternative treatments with family. Continue to closely monitor and follow up labs/imaging. Critical care time spent on clinical assessment, reviewing labs and imaging, decision making, and documentation greater than 75 minutes. Past Medical Family Social History Past Med/Fam/Surg Hx: No changes since H&P Allergies: Allergies No Known Drug Allergies Allergy (Verified 05/01/22 09:52) Review of Systems ROS: Changes notes (describe) (See HPI) Vital Signs and I&O's Vital Signs: Temperature 99.2 F Pulse Rate [Right Radial] 80 Pulse Rate 90 Respiratory Rate 40 Blood Pressure [Right Arm] 138/90 Blood Pressure 95/54 O2 Sat by Pulse Oximetry 99 Intake and Output: Intake & Output 05/03/22 05/04/22 05/05/22 05/06/22 23:59 23:59 23:59 23:59 Intake Total 3054 / 3054 2374 / 2374 2744.00 / 2744.00 2311 / 2311 Output Total 1075 / 1075 640 / 640 1175 / 1175 800 / 800 Balance 1978 / 1978 1734 / 1734 1569.00 / 1569.00 1511 / 1511 Physical Exam Oriented: Unable to test (Pt is intubated now ..) Eyes: Normal Ear: Normal Nose: Normal Throat: Normal Respiratory: OTHER (infected median sternotomy incision with active drainage .) Cardiovascular: Normal : Normal Auscultation: Bowel Sounds: Normal Tenderness: Normal Skin: Wound (dehiscence of median sternotomy incision with large abscess ) Musculoskeletal: Normal Psychiatric: Normal Mood Description: Calm and Appropriate Affect: Normal Speech Pattern: Artificially Ventilated Laboratory and Diagnostics Result Diagrams: 05/06/22 04:45 05/06/22 04:45 Labs: 05/01/22 09:27 Blood Blood Culture - Final 05/06/22 08:55 Sputum - Endotracheal Wash - Final 05/01/22 09:15 Blood Blood Culture - Final Enterobacter Cloacae 05/01/22 10:00 Chest Wound Gram Stain - Final 05/01/22 10:00 Chest Wound Culture - Final Proteus Mirabilis Staphylococcus Aureus Enterobacter Cloacae 05/01/22 07:19 Urine,Catheterized Urine Culture - Final Proteus Mirabilis Laboratory WBC 9.7 X10^3/uL (3.6-10.0) 05/06/22 04:45 RBC 3.44 X10^6/uL (3.5-5.4) L 05/06/22 04:45 Hgb 9.0 g/dL (12.0-16.0) L 05/06/22 04:45 Hct 27.3 % (36.0-47.0) L 05/06/22 04:45 MCV 79.2 fL (80.0-100.0) L 05/06/22 04:45 MCH 26.2 pg (27.0-34.0) L 05/06/22 04:45 MCHC 33.1 g/dL (33.0-35.0) 05/06/22 04:45 RDW 17.4 % (11.6-16.5) H 05/06/22 04:45 Plt Count 278 X10^3/uL (150.0-450.0) 05/06/22 04:45 Plt Count Comment Decreased (ADEQUATE) A 05/02/22 04:00 MPV 8.7 fL (7.4-11.0) 05/06/22 04:45 Neut % (Auto) 71.2 % (42.0-75.0) 05/06/22 04:45 Lymph % (Auto) 18.5 % (21.0-51.0) L 05/06/22 04:45 [place] % (Auto) 9.2 % (0.0-13.0) 05/06/22 04:45 Eos % (Auto) 0.8 % (0.9-2.9) L 05/06/22 04:45 Baso % (Auto) 0.3 % (0.2-1.0) 05/06/22 04:45 Neut # (Auto) 6.9 x10^3/uL (2.2-4.8) H 05/06/22 04:45 Lymph # (Auto) 1.8 X10^3/uL (1.3-2.9) 05/06/22 04:45 [place] # (Auto) 0.9 x10^3/uL (0.3-0.8) H 05/06/22 04:45 Eos # (Auto) 0.1 x10^3/uL (0.0-0.2) 05/06/22 04:45 Baso # (Auto) 0.0 X10^3/uL (0.0-0.1) 05/06/22 04:45 Absolute Nucleated RBC 0.0 /100WBC 05/06/22 04:45 Total Counted 100 05/02/22 04:00 Neutrophils % (Manual) 78 % (39-76) H 05/02/22 04:00 Lymphocytes % (Manual) 15 % (13-43) 05/02/22 04:00 Monocytes % (Manual) 5 % (4-9) 05/02/22 04:00 Eosinophils % (Manual) 2 % (0-6) 05/02/22 04:00 Atypical Lymphocytes Few A 05/02/22 04:00 Plt Morphology Comment Normal (NORMAL) 05/02/22 04:00 RBC Morphology Abnormal (NORMAL) A 05/02/22 04:00 Hypochromasia Slight A 05/01/22 09:27 Anisocytosis Slight A 05/02/22 04:00 Microcytosis Slight A 05/01/22 09:27 Sample Site Lr 05/06/22 05:00 ABG pH 7.470 (7.35-7.45) H 05/06/22 05:00 ABG pCO2 27.0 mmHg (35.0-45.0) L 05/06/22 05:00 ABG pO2 85.0 mmHg (80.0-100.0) 05/06/22 05:00 ABG HCO3 19.7 mmol/L (22-26) L 05/06/22 05:00 ABG O2 Saturation 97.0 % (90-100) 05/06/22 05:00 ABG Base Excess -2.7 mmol/L (-2.0-2.0) L 05/06/22 05:00 Cristobal Test Pos 05/06/22 05:00 A-a Gradient 238.0 mmHg 05/06/22 05:00 FiO2 50.0 05/06/22 05:00 Blood Gas Comments Luis well sw 05/06/22 05:00 Sodium 135 mmol/L (136-145) L 05/06/22 04:45 Corrected Sodium 138 mmol/L (136-145) 05/06/22 04:45 Potassium 3.8 mmol/L (3.5-5.1) 05/06/22 04:45 Chloride 104 mmol/L (98-107) 05/06/22 04:45 Carbon Dioxide 20.7 mmol/L (21-32) L 05/06/22 04:45 BUN 23 mg/dL (7-18) H 05/06/22 04:45 Creatinine 1.07 mg/dL (0.55-1.02) H 05/06/22 04:45 Creatinine 1.09 mg/dL (0.55-1.02) H 05/06/22 04:45 Est GFR (MDRD) Af Amer > 60 (>60) 05/06/22 04:45 Est GFR (MDRD) Non-Af 54 (>60) L 05/06/22 04:45 Glucose 232 mg/dL (65-99) H 05/06/22 04:45 POC Glucose (mg/dL) 237 mg/dL (65-99) H 05/06/22 10:30 Lactic Acid 2.2 mmol/L (0.4-2.0) H 05/05/22 08:56 Calcium 8.2 mg/dL (8.5-10.1) L 05/06/22 04:45 Corrected Calcium 10.3 mg/dL (8.5-10.1) H 05/06/22 04:45 Magnesium 1.8 mg/dL (1.7-2.9) 05/04/22 21:12 Total Bilirubin 0.50 mg/dL (0.2-1.0) 05/06/22 04:45 AST 41 Units/L (15-37) H 05/06/22 04:45 ALT 22 Units/L (12-78) 05/06/22 04:45 Alkaline Phosphatase 122 Units/L (46-116) H 05/06/22 04:45 Creatine Kinase 21 Units/L (26-192) L 05/04/22 21:12 CK-MB (CK-2) 1.0 ng/mL (0-4.0) 05/04/22 21:12 CK/CKMB % Calc 4.8 % (<4) 05/04/22 21:12 Troponin I High Sens 10.0 ng/L (4.0-60.0) 05/04/22 21:12 Total Protein 5.6 g/dL (6.4-8.2) L 05/06/22 04:45 Albumin 1.4 g/dL (3.4-5.0) L 05/06/22 04:45 Globulin 4.2 g/dL (2.5-4.5) 05/06/22 04:45 Albumin/Globulin Ratio 0.3 Ratio (1.1-2.1) L 05/06/22 04:45 Specimen Type Catherized urine 05/01/22 07:19 Urine Color Yellow (YELLOW) 05/01/22 07:19 Urine Appearance Hazy (CLEAR) 05/01/22 07:19 Urine pH 8.0 (5.0 - 8.0) 05/01/22 07:19 Ur Specific [place] 1.010 (1.000-1.030) 05/01/22 07:19 Urine Protein 3+ (NEGATIVE) 05/01/22 07:19 Urine Glucose (UA) 3+ (NEGATIVE) 05/01/22 07:19 Urine Ketones Negative (NEGATIVE) 05/01/22 07:19 Urine Blood 3+ (NEGATIVE) 05/01/22 07:19 Urine Nitrite Positive (NEGATIVE) 05/01/22 07:19 Urine Bilirubin Negative (NEGATIVE) 05/01/22 07:19 Urine Urobilinogen Normal (NORMAL) 05/01/22 07:19 Ur Leukocyte Esterase 3+ (NEGATIVE) 05/01/22 07:19 Urine RBC 10-20 /HPF (0-3) A 05/01/22 07:19 Urine WBC Tntc /HPF (0-5) A 05/01/22 07:19 Ur Squamous Epith Cells Negative /HPF (NEGATIVE) 05/01/22 07:19 Urine Bacteria 4+ /HPF (NEGATIVE) 05/01/22 07:19 Ur Culture Indicated? Yes/culture set up 05/01/22 07:19 Vancomycin Trough 28.8 ug/mL (15-20) H* 05/06/22 04:45 SARS-CoV-2 (PCR) Negative (NEGATIVE) 05/01/22 14:18 Plan (1) Sepsis: Status: Acute (2) Bacteremia due to Enterobacter species: Status: Acute (3) Dehiscence of closure of sternum or sternotomy: Status: Acute (4) Acute cystitis: Status: Acute (5) Acute dehydration: Status: Acute (6) Acute hyponatremia: Status: Acute (7) Infected surgical wound: Status: Acute
[2022-05-06] MEDS: SNACK - Diabetic Appropriate PO SCH (20:32)
[2022-05-06] MEDS ORDERED: LEXAPRO ONE (20:52)
[2022-05-06] MEDS: POTASSIUM CHLORIDE LIQ 20 MEQ UDC NG SCH (21:44)
[2022-05-06] MEDS: RESTORIL CAP 15 MG PO SCH (21:45)
[2022-05-06] MEDS: LEXAPRO PO SCH (21:45)
[2022-05-06] MEDS: NovoLIN R (or HumuLIN R) SUBCUT PRN (21:46)
[2022-05-07] MEDS: LEVOPHED 8 MG/250 ML IV *PREMIX 8 MG/250 ML PLAST..BAG IV PRN (00:30)
[2022-05-07] MEDS: NS 1,000 ML IV 1,000 ML IV SCH ×2 (00:30→15:37)
[2022-05-07] MEDS: DIPRIVAN PREMIX 1 GRAM IV 1,000 MG/100 ML VIAL IV PRN ×4 (04:43→20:11)
[2022-05-07 05:40] LABS: BASOPHILS % (AUTO) 0.2 % (0.2-1.0); EOSINOPHILS # (AUTO) 0.1 x10^3/uL (0.0-0.2); EOSINOPHILS % (AUTO) 0.7 % (0.9-2.9); HEMATOCRIT 26.7 % (36.0-47.0); HEMOGLOBIN 8.8 g/dL (12.0-16.0); LYMPHOCYTES # (AUTO) 2.1 X10^3/uL (1.3-2.9); LYMPHOCYTES % (AUTO) 16.1 % (21.0-51.0); MEAN CORPUSCULAR HEMOGLOBIN 25.9 pg (27.0-34.0); MEAN CORPUSCULAR HGB CONC 32.8 g/dL (33.0-35.0); MEAN CORPUSCULAR VOLUME 78.9 fL (80.0-100.0); MEAN PLATELET VOLUME 8.5 fL (7.4-11.0); MONOCYTES # (AUTO) 0.9 x10^3/uL (0.3-0.8); MONOCYTES % (AUTO) 6.9 % (0.0-13.0); NEUTROPHILS # (AUTO) 9.7 x10^3/uL (2.2-4.8); NEUTROPHILS % (AUTO) 76.1 % (42.0-75.0); RED BLOOD COUNT 3.39 X10^6/uL (3.5-5.4); RED CELL DISTRIBUTION WIDTH 17.5 % (11.6-16.5); WHITE BLOOD COUNT 12.8 X10^3/uL (3.6-10.0)
[2022-05-07 05:49] LABS: ABG ALLEN TEST POS; ABG BASE EXCESS -4.7 mmol/L (-2.0-2.0); ABG HCO3 19.4 mmol/L (22-26)
[2022-05-07 05:52] LABS: ALANINE AMINOTRANSFERASE 19 Units/L (12-78); ALBUMIN 1.4 g/dL (3.4-5.0); ALKALINE PHOSPHATASE 122 Units/L (46-116); ASPARTATE AMINO TRANSFERASE 44 Units/L (15-37); BLOOD UREA NITROGEN 24 mg/dL (7-18); CALCIUM 8.2 mg/dL (8.5-10.1); CARBON DIOXIDE 19.8 mmol/L (21-32); CHLORIDE 108 mmol/L (98-107); COR CA(FOR HYPOALB) 10.3 mg/dL (8.5-10.1); COR NA(FOR HYPERGLY) 140 mmol/L (136-145); CREATININE 1.02 mg/dL (0.55-1.02); SODIUM 137 mmol/L (136-145); TOTAL PROTEIN 5.8 g/dL (6.4-8.2); eGFR NON BLACK RACES 58 (>60)
[2022-05-07] MEDS: NEURONTIN CAP 300 MG PO SCH ×3 (06:01→21:07)
--- NOTE | 2022-05-07 06:49 | RAD ---
HISTORYFollow up respiratory failureSTUDYChest AP [id number]/14/2022FINDINGSPati ent is rotated slightly to the left. There is an endotracheal tube in good position. There is a nasogastric tube coursing below the left hemidiaphragm. Its tip is not visible. There is a right IJ line in good position. There is a left-sided pacemaker in the left axilla. Patient is status post median sternotomy. Heart remains enlarged. No definite congestive heart failure is noted. There is a new left upper lobe perihilar infiltrate present. Haziness in right lung bases decreasing likely due to improving right basilar infiltrate and decreasing right pleural effusion. Persistent increased density is present in the retrocardiac area of the left lower lobe likely due to pleural effusion and infiltrate. Bony thorax is unremarkable.IMPRESSIONNew left upper lobe perihilar infiltrateImproving right basilar infiltrate and decreasing right pleural effusionNo change persistent increased density retrocardiac area left lower lobe likely due to pleural fluid and infiltrateElectronically signed by: CELINA BOWLES (May 07, 2022 06:46:32)
[2022-05-07] MEDS ORDERED: PHARMACY COMMENT IV NR (08:30)
[2022-05-07 09:20] LABS: CREATININE 0.89 mg/dL (0.55-1.02); VANCOMYCIN,TROUGH 11.2 ug/mL (15-20)
[2022-05-07] MEDS: CORDARONE TAB 200 MG PO SCH ×2 (09:32→20:35)
[2022-05-07] MEDS: ASPIRIN EC 81 MG PO SCH (09:32)
[2022-05-07] MEDS: LEVAQUIN PREMIX IV 750 MG 750 MG/150 ML BAG IV SCH (09:32)
[2022-05-07] MEDS: POTASSIUM CHLORIDE LIQ 20 MEQ UDC NG SCH ×2 (09:33→20:33)
[2022-05-07] MEDS: LOVENOX INJ 40 MG SYR SC SCH (09:33)
[2022-05-07] MEDS: LIPITOR TAB 40 MG PO SCH (09:33)
[2022-05-07] MEDS: ZEBETA TAB 5 MG PO SCH ×2 (09:33→21:05)
[2022-05-07] MEDS: LASIX IVP SCH ×2 (09:42→15:48)
[2022-05-07] MEDS: VANCOMYCIN IV *PREMIX 1 G/200 ML BAG 1 G/200 ML PIGGYBACK IV SCH (11:33)
--- NOTE | 2022-05-07 11:38 | PCM.PROG ---
Progress Note Progress Note for Day of Date of Exam: 05/07/22 Subjective Subjective: Pt is a 61 year old female past medical history of CABGx3(02/2022), HFrEF(EF 40-45%), Atrial fibrillation, Pacemaker, DMT2, admitted for Sepsis, Enterobacter cloacae bacteremia, acute cystitis with proteus mirabilis, and dehiscence of the median sternotomy with an extensive abscess. This morning patient remains on the mechanical ventilator. Vent settings are currently: AC, RR 15, TV 450, PEEP 5, FiO2 35%. Pt is currently requiring vasopressors on Levophed gtt for blood pressure support. She is sedated with propofol, has central line and NGT placed. Labs/imaging: Wbc 12.8, Hgb 8.8, Plt 317, Na 137, K 3.8, Creatinine 1.02, Glucose 241, ABG: pH 7.39, pCO2 32, pO2 81, HCO3 19, O2sat 96% on FiO2 35%. Wound culture positive for staph aureus, proteus mirabilis, and enterobacter cloacae. CXR was obtained that revealed: New left upper lobe perihilar infiltrate. Improving right basilar infiltrate and decreasing right pleural effusion. No change persistent increased density retrocardiac area left lower lobe likely due to pleural fluid and infiltrate. Pt is currently receiving: IVF NS@125ml/h, IV antibiotics Vancomycin, Levaquin, SSI. Repeat blood cultures pending. Wean/titrate vasopressors and FiO2 as tolerated. Patient's prognosis continues to remain poor at this time. Will continue with treatments and care. Pt is a limited DNR. Otherwise, continue with current treatment plan. Continue to closely monitor and follow up labs/imaging. Critical care time spent on clinical assessment, reviewing labs and imaging, decision making, and documentation greater than 75 minutes. Past Medical Family Social History Past Med/Fam/Surg Hx: No changes since H&P Allergies: Allergies No Known Drug Allergies Allergy (Verified 05/01/22 09:52) Review of Systems ROS: Changes notes (describe) (See HPI) Vital Signs and I&O's Vital Signs: Temperature 98.5 F Pulse Rate [Right Radial] 80 Pulse Rate 75 Respiratory Rate 22 Blood Pressure [Right Arm] 138/90 Blood Pressure 145/56 O2 Sat by Pulse Oximetry 99 Intake and Output: Intake & Output 07/1205/05/22 05/06/22 05/07/22 23:59 23:59 23:59 23:59 Intake Total 2374 / 2374 2744.00 / 2744.00 4359 / 4359 1203 / 1203 Output Total 640 / 640 1175 / 1175 1575 / 1575 575 / 575 Balance 1734 / 1734 1569.00 / 1569.00 2784 / 2784 628 / 628 Physical Exam Oriented: Unable to test (Pt is intubated now ..) Eyes: Normal Ear: Normal Nose: Normal Throat: Normal Respiratory: OTHER (infected median sternotomy incision with active drainage .) Cardiovascular: Normal : Normal Auscultation: Bowel Sounds: Normal Tenderness: Normal Skin: Wound (dehiscence of median sternotomy incision with large abscess ) Musculoskeletal: Normal Psychiatric: Normal Mood Description: Calm and Appropriate Affect: Normal Speech Pattern: Artificially Ventilated Laboratory and Diagnostics Result Diagrams: 05/07/22 05:05 05/07/22 08:29 Labs: 05/06/22 08:55 Sputum - Endotracheal Wash Sputum Culture - Preliminary 05/06/22 08:55 Sputum - Endotracheal Wash - Final 05/01/22 09:27 Blood Blood Culture - Final 05/01/22 09:15 Blood Blood Culture - Final Enterobacter Cloacae 05/01/22 10:00 Chest Wound Gram Stain - Final 05/01/22 10:00 Chest Wound Culture - Final Proteus Mirabilis Staphylococcus Aureus Enterobacter Cloacae 05/01/22 07:19 Urine,Catheterized Urine Culture - Final Proteus Mirabilis Laboratory WBC 12.8 X10^3/uL (3.6-10.0) H 05/07/22 05:05 RBC 3.39 X10^6/uL (3.5-5.4) L 05/07/22 05:05 Hgb 8.8 g/dL (12.0-16.0) L 05/07/22 05:05 Hct 26.7 % (36.0-47.0) L 05/07/22 05:05 MCV 78.9 fL (80.0-100.0) L 05/07/22 05:05 MCH 25.9 pg (27.0-34.0) L 05/07/22 05:05 MCHC 32.8 g/dL (33.0-35.0) L 05/07/22 05:05 RDW 17.5 % (11.6-16.5) H 05/07/22 05:05 Plt Count 317 X10^3/uL (150.0-450.0) 05/07/22 05:05 Plt Count Comment Decreased (ADEQUATE) A 05/02/22 04:00 MPV 8.5 fL (7.4-11.0) 05/07/22 05:05 Neut % (Auto) 76.1 % (42.0-75.0) H 05/07/22 05:05 Lymph % (Auto) 16.1 % (21.0-51.0) L 05/07/22 05:05 [place] % (Auto) 6.9 % (0.0-13.0) 05/07/22 05:05 Eos % (Auto) 0.7 % (0.9-2.9) L 05/07/22 05:05 Baso % (Auto) 0.2 % (0.2-1.0) 05/07/22 05:05 Neut # (Auto) 9.7 x10^3/uL (2.2-4.8) H 05/07/22 05:05 Lymph # (Auto) 2.1 X10^3/uL (1.3-2.9) 05/07/22 05:05 [place] # (Auto) 0.9 x10^3/uL (0.3-0.8) H 05/07/22 05:05 Eos # (Auto) 0.1 x10^3/uL (0.0-0.2) 05/07/22 05:05 Baso # (Auto) 0.0 X10^3/uL (0.0-0.1) 05/07/22 05:05 Absolute Nucleated RBC 0.1 /100WBC 05/07/22 05:05 Total Counted 100 05/02/22 04:00 Neutrophils % (Manual) 78 % (39-76) H 05/02/22 04:00 Lymphocytes % (Manual) 15 % (13-43) 05/02/22 04:00 Monocytes % (Manual) 5 % (4-9) 05/02/22 04:00 Eosinophils % (Manual) 2 % (0-6) 05/02/22 04:00 Atypical Lymphocytes Few A 05/02/22 04:00 Plt Morphology Comment Normal (NORMAL) 05/02/22 04:00 RBC Morphology Abnormal (NORMAL) A 05/02/22 04:00 Hypochromasia Slight A 05/01/22 09:27 Anisocytosis Slight A 05/02/22 04:00 Microcytosis Slight A 05/01/22 09:27 Sample Site Rrad 05/07/22 05:49 ABG pH 7.390 (7.35-7.45) 05/07/22 05:49 ABG pCO2 32.0 mmHg (35.0-45.0) L 05/07/22 05:49 ABG pO2 81.0 mmHg (80.0-100.0) 05/07/22 05:49 ABG HCO3 19.4 mmol/L (22-26) L 05/07/22 05:49 ABG O2 Saturation 96.0 % (90-100) 05/07/22 05:49 ABG Base Excess -4.7 mmol/L (-2.0-2.0) L 05/07/22 05:49 Cristobal Test Pos 05/07/22 05:49 A-a Gradient 129.0 mmHg 05/07/22 05:49 FiO2 35.0 05/07/22 05:49 Blood Gas Comments Luis well-mtf 05/07/22 05:49 Sodium 137 mmol/L (136-145) 05/07/22 05:05 Corrected Sodium 140 mmol/L (136-145) 05/07/22 05:05 Potassium 3.8 mmol/L (3.5-5.1) 05/07/22 05:05 Chloride 108 mmol/L (98-107) H 05/07/22 05:05 Carbon Dioxide 19.8 mmol/L (21-32) L 05/07/22 05:05 BUN 24 mg/dL (7-18) H 05/07/22 05:05 Creatinine 0.89 mg/dL (0.55-1.02) 05/07/22 08:29 Est GFR (MDRD) Af Amer > 60 (>60) 05/07/22 05:05 Est GFR (MDRD) Non-Af 58 (>60) L 05/07/22 05:05 Glucose 241 mg/dL (65-99) H 05/07/22 05:05 POC Glucose (mg/dL) 217 mg/dL (65-99) H 05/07/22 05:09 Lactic Acid 2.2 mmol/L (0.4-2.0) H 05/05/22 08:56 Calcium 8.2 mg/dL (8.5-10.1) L 05/07/22 05:05 Corrected Calcium 10.3 mg/dL (8.5-10.1) H 05/07/22 05:05 Magnesium 1.8 mg/dL (1.7-2.9) 05/04/22 21:12 Total Bilirubin 0.40 mg/dL (0.2-1.0) 05/07/22 05:05 AST 44 Units/L (15-37) H 05/07/22 05:05 ALT 19 Units/L (12-78) 05/07/22 05:05 Alkaline Phosphatase 122 Units/L (46-116) H 05/07/22 05:05 Creatine Kinase 21 Units/L (26-192) L 05/04/22 21:12 CK-MB (CK-2) 1.0 ng/mL (0-4.0) 05/04/22 21:12 CK/CKMB % Calc 4.8 % (<4) 05/04/22 21:12 Troponin I High Sens 10.0 ng/L (4.0-60.0) 05/04/22 21:12 Total Protein 5.8 g/dL (6.4-8.2) L 05/07/22 05:05 Albumin 1.4 g/dL (3.4-5.0) L 05/07/22 05:05 Globulin 4.4 g/dL (2.5-4.5) 05/07/22 05:05 Albumin/Globulin Ratio 0.3 Ratio (1.1-2.1) L 05/07/22 05:05 Specimen Type Catherized urine 05/01/22 07:19 Urine Color Yellow (YELLOW) 05/01/22 07:19 Urine Appearance Hazy (CLEAR) 05/01/22 07:19 Urine pH 8.0 (5.0 - 8.0) 05/01/22 07:19 Ur Specific [place] 1.010 (1.000-1.030) 05/01/22 07:19 Urine Protein 3+ (NEGATIVE) 05/01/22 07:19 Urine Glucose (UA) 3+ (NEGATIVE) 05/01/22 07:19 Urine Ketones Negative (NEGATIVE) 05/01/22 07:19 Urine Blood 3+ (NEGATIVE) 05/01/22 07:19 Urine Nitrite Positive (NEGATIVE) 05/01/22 07:19 Urine Bilirubin Negative (NEGATIVE) 05/01/22 07:19 Urine Urobilinogen Normal (NORMAL) 05/01/22 07:19 Ur Leukocyte Esterase 3+ (NEGATIVE) 05/01/22 07:19 Urine RBC 10-20 /HPF (0-3) A 05/01/22 07:19 Urine WBC Tntc /HPF (0-5) A 05/01/22 07:19 Ur Squamous Epith Cells Negative /HPF (NEGATIVE) 05/01/22 07:19 Urine Bacteria 4+ /HPF (NEGATIVE) 05/01/22 07:19 Ur Culture Indicated? Yes/culture set up 05/01/22 07:19 Vancomycin Trough 11.2 ug/mL (15-20) L 05/07/22 08:29 SARS-CoV-2 (PCR) Negative (NEGATIVE) 05/01/22 14:18 Plan (1) Sepsis: Status: Acute (2) Bacteremia due to Enterobacter species: Status: Acute (3) Dehiscence of closure of sternum or sternotomy: Status: Acute (4) Acute cystitis: Status: Acute (5) Acute dehydration: Status: Acute (6) Acute hyponatremia: Status: Acute (7) Infected surgical wound: Status: Acute (8) Acute respiratory failure: Status: Acute
[2022-05-07] MEDS ORDERED: LEXAPRO ONE (20:02)
[2022-05-07] MEDS: SNACK - Diabetic Appropriate PO SCH (20:31)
[2022-05-07] MEDS: LEXAPRO PO SCH (20:36)
[2022-05-07] MEDS: RESTORIL CAP 15 MG PO SCH (21:04)
[2022-05-08] MEDS: DIPRIVAN PREMIX 1 GRAM IV 1,000 MG/100 ML VIAL IV PRN ×5 (00:21→23:26)
[2022-05-08] MEDS: NS 1,000 ML IV 1,000 ML IV SCH ×3 (00:24→17:18)
[2022-05-08 04:35] LABS: ABG ALLEN TEST POS; ABG BASE EXCESS -3.7 mmol/L (-2.0-2.0); ABG HCO3 20.6 mmol/L (22-26)
[2022-05-08 05:43] LABS: BASOPHILS % (AUTO) 0.2 % (0.2-1.0); EOSINOPHILS # (AUTO) 0.3 x10^3/uL (0.0-0.2); EOSINOPHILS % (AUTO) 3.1 % (0.9-2.9); HEMATOCRIT 26.5 % (36.0-47.0); HEMOGLOBIN 8.7 g/dL (12.0-16.0); LYMPHOCYTES # (AUTO) 1.5 X10^3/uL (1.3-2.9); LYMPHOCYTES % (AUTO) 14.9 % (21.0-51.0); MEAN CORPUSCULAR HEMOGLOBIN 26.1 pg (27.0-34.0); MEAN CORPUSCULAR HGB CONC 32.8 g/dL (33.0-35.0); MEAN CORPUSCULAR VOLUME 79.6 fL (80.0-100.0); MEAN PLATELET VOLUME 8.7 fL (7.4-11.0); MONOCYTES # (AUTO) 0.7 x10^3/uL (0.3-0.8); MONOCYTES % (AUTO) 7.1 % (0.0-13.0); NEUTROPHILS # (AUTO) 7.4 x10^3/uL (2.2-4.8); NEUTROPHILS % (AUTO) 74.7 % (42.0-75.0); RED BLOOD COUNT 3.33 X10^6/uL (3.5-5.4); RED CELL DISTRIBUTION WIDTH 17.5 % (11.6-16.5)
[2022-05-08 05:54] LABS: ALANINE AMINOTRANSFERASE 20 Units/L (12-78); ALBUMIN 1.2 g/dL (3.4-5.0); ALKALINE PHOSPHATASE 113 Units/L (46-116); ASPARTATE AMINO TRANSFERASE 37 Units/L (15-37); BLOOD UREA NITROGEN 19 mg/dL (7-18); CALCIUM 8.1 mg/dL (8.5-10.1); CARBON DIOXIDE 21.3 mmol/L (21-32); COR CA(FOR HYPOALB) 10.3 mg/dL (8.5-10.1); CREATININE 0.81 mg/dL (0.55-1.02); MAGNESIUM 1.5 mg/dL (1.7-2.9); TOTAL PROTEIN 5.7 g/dL (6.4-8.2); eGFR NON BLACK RACES > 60 (>60)
[2022-05-08 06:07] LABS: CHLORIDE 110 mmol/L (98-107)
[2022-05-08] MEDS: NEURONTIN CAP 300 MG PO SCH ×3 (06:13→21:56)
[2022-05-08 06:39] LABS: COR NA(FOR HYPERGLY) 142 mmol/L (136-145); SODIUM 139 mmol/L (136-145)
--- NOTE | 2022-05-08 07:13 | RAD ---
HISTORYFollow-up sternotomy abscessSTUDYAP [id number]/[id number] heart size and contour and postsurgical findings. Support lines are stable. Persistent vascular congestion and airspace consolidation at the left base with pleural fluid. Slight increase in infiltrates in the right lung.IMPRESSIONSlight interval increase in pulmonary densities in the right lung consistent with progression of pneumonia/pulmonary edema. Stable appearance of heart and left chest.Electronically signed by: TEE CHONG (May 08, 2022 07:12:18)
[2022-05-08] MEDS: LASIX IVP SCH ×2 (08:20→14:01)
[2022-05-08] MEDS: ASPIRIN EC 81 MG PO SCH (08:20)
[2022-05-08] MEDS: CORDARONE TAB 200 MG PO SCH ×2 (08:20→20:22)
[2022-05-08] MEDS: POTASSIUM CHLORIDE LIQ 20 MEQ UDC NG SCH ×2 (08:21→20:21)
[2022-05-08] MEDS: LEVAQUIN PREMIX IV 750 MG 750 MG/150 ML BAG IV SCH (08:21)
[2022-05-08] MEDS: LOVENOX INJ 40 MG SYR SC SCH (08:21)
[2022-05-08] MEDS: LIPITOR TAB 40 MG PO SCH (08:21)
[2022-05-08] MEDS: ZEBETA TAB 5 MG PO SCH ×2 (08:22→20:23)
[2022-05-08] MEDS: VANCOMYCIN IV *PREMIX 1 G/200 ML BAG 1 G/200 ML PIGGYBACK IV SCH (10:23)
--- NOTE | 2022-05-08 14:02 | PCM.PROG ---
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 This morning patient remains on the mechanical ventilator. Pt is currently requiring vasopressors on Levophed gtt for blood pressure support. She is sedated with propofol, has central line and NGT placed. Labs/imaging: Wbc 10.0, Hgb 8.7, Plt 280, Na 139, K 3.8, Creatinine 0.81, Glucose 213, ABG: pH 7.39, pCO2 34, pO2 85, HCO3 20.6, O2sat 96% on FiO2 30%. Wound culture positive for staph aureus, proteus mirabilis, and enterobacter cloacae. Pt is currently receiving: IVF NS@75ml/h, IV antibiotics Vancomycin, Levaquin, SSI. Repeat blood cultures pending. Wean/titrate vasopressors and FiO2 as tolerated. Patient's prognosis continues to remain poor at this time. Will continue with treatments and care. Pt is a limited DNR. Otherwise, continue with current treatment plan. Continue to closely monitor and follow up labs/imaging. Critical care time spent on clinical assessment, reviewing labs and imaging, decision making, and documentation greater than 75 minutes. - Past Medical Family Social History Past Med/Fam/Surg Hx: No changes since H&P Allergies: Allergies No Known Drug Allergies Allergy (Verified 05/01/22 09:52) - Review of Systems ROS: Changes notes (describe) (See HPI) - Vital Signs and I&O's Vital Signs: Temperature 98.8 F Pulse Rate [Right Radial] 80 Pulse Rate 75 Respiratory Rate 15 Blood Pressure [Right Arm] 138/90 Blood Pressure 121/60 O2 Sat by Pulse Oximetry 99 Intake and Output: Intake & Output 05/06/22 05/07/22 05/08/22 05/09/22 11:59 11:59 11:59 11:59 Intake Total 4538.00 / 4538.00 3251 / 3251 2986 / 2986 Output Total 1700 / 1700 1350 / 1350 3040 / 3040 Balance 2838.00 / 2838.00 1901 / 1901 -54 / -54 - Physical Exam Oriented: Unable to test (Pt is intubated now ..) Eyes: Normal Ear: Normal Nose: Normal Throat: Normal Respiratory: OTHER (infected median sternotomy incision with active drainage .) Cardiovascular: Normal : Normal Auscultation: Bowel Sounds: Normal Tenderness: Normal Skin: Wound (dehiscence of median sternotomy incision with large abscess) Musculoskeletal: Normal Psychiatric: Normal Mood Description: Calm, Appropriate Affect: Normal Speech Pattern: Artificially Ventilated - Laboratory and Diagnostics Result Diagrams: 05/08/22 04:43 05/08/22 04:43 Labs: 05/05/22 10:56 Blood Blood Culture - Preliminary 05/05/22 08:36 Blood Blood Culture - Preliminary 05/06/22 08:55 Sputum - Endotracheal Wash Sputum Culture - Preliminary 05/06/22 08:55 Sputum - Endotracheal Wash - Final 05/01/22 09:27 Blood Blood Culture - Final 05/01/22 09:15 Blood Blood Culture - Final Enterobacter Cloacae 05/01/22 10:00 Chest Wound Gram Stain - Final 05/01/22 10:00 Chest Wound Culture - Final Proteus Mirabilis Staphylococcus Aureus Enterobacter Cloacae 05/01/22 07:19 Urine,Catheterized Urine Culture - Final Proteus Mirabilis Laboratory WBC 10.0 X10^3/uL (3.6-10.0) 05/08/22 04:43 RBC 3.33 X10^6/uL (3.5-5.4) L 05/08/22 04:43 Hgb 8.7 g/dL (12.0-16.0) L 05/08/22 04:43 Hct 26.5 % (36.0-47.0) L 05/08/22 04:43 MCV 79.6 fL (80.0-100.0) L 05/08/22 04:43 MCH 26.1 pg (27.0-34.0) L 05/08/22 04:43 MCHC 32.8 g/dL (33.0-35.0) L 05/08/22 04:43 RDW 17.5 % (11.6-16.5) H 05/08/22 04:43 Plt Count 280 X10^3/uL (150.0-450.0) 05/08/22 04:43 Plt Count Comment Decreased (ADEQUATE) A 05/02/22 04:00 MPV 8.7 fL (7.4-11.0) 05/08/22 04:43 Neut % (Auto) 74.7 % (42.0-75.0) 05/08/22 04:43 Lymph % (Auto) 14.9 % (21.0-51.0) L 05/08/22 04:43 Gage % (Auto) 7.1 % (0.0-13.0) 05/08/22 04:43 Eos % (Auto) 3.1 % (0.9-2.9) H 05/08/22 04:43 Baso % (Auto) 0.2 % (0.2-1.0) 05/08/22 04:43 Neut # (Auto) 7.4 x10^3/uL (2.2-4.8) H 05/08/22 04:43 Lymph # (Auto) 1.5 X10^3/uL (1.3-2.9) 05/08/22 04:43 Gage # (Auto) 0.7 x10^3/uL (0.3-0.8) 05/08/22 04:43 Eos # (Auto) 0.3 x10^3/uL (0.0-0.2) H 05/08/22 04:43 Baso # (Auto) 0.0 X10^3/uL (0.0-0.1) 05/08/22 04:43 Absolute Nucleated RBC 0.1 /100WBC 05/08/22 04:43 Total Counted 100 05/02/22 04:00 Neutrophils % (Manual) 78 % (39-76) H 05/02/22 04:00 Lymphocytes % (Manual) 15 % (13-43) 05/02/22 04:00 Monocytes % (Manual) 5 % (4-9) 05/02/22 04:00 Eosinophils % (Manual) 2 % (0-6) 05/02/22 04:00 Atypical Lymphocytes Few A 05/02/22 04:00 Plt Morphology Comment Normal (NORMAL) 05/02/22 04:00 RBC Morphology Abnormal (NORMAL) A 05/02/22 04:00 Hypochromasia Slight A 05/01/22 09:27 Anisocytosis Slight A 05/02/22 04:00 Microcytosis Slight A 05/01/22 09:27 Sample Site Rrad 05/08/22 04:30 ABG pH 7.390 (7.35-7.45) 05/08/22 04:30 ABG pCO2 34.0 mmHg (35.0-45.0) L 05/08/22 04:30 ABG pO2 85.0 mmHg (80.0-100.0) 05/08/22 04:30 ABG HCO3 20.6 mmol/L (22-26) L 05/08/22 04:30 ABG O2 Saturation 96.0 % (90-100) 05/08/22 04:30 ABG Base Excess -3.7 mmol/L (-2.0-2.0) L 05/08/22 04:30 Cristobal Test Pos 05/08/22 04:30 A-a Gradient 86.0 mmHg 05/08/22 04:30 FiO2 30.0 05/08/22 04:30 Blood Gas Comments Luis well ms/mf 05/08/22 04:30 Sodium 139 mmol/L (136-145) 05/08/22 04:43 Corrected Sodium 142 mmol/L (136-145) 05/08/22 04:43 Potassium 3.8 mmol/L (3.5-5.1) 05/08/22 04:43 Chloride 110 mmol/L (98-107) H 05/08/22 04:43 Carbon Dioxide 21.3 mmol/L (21-32) 05/08/22 04:43 BUN 19 mg/dL (7-18) H 05/08/22 04:43 Creatinine 0.81 mg/dL (0.55-1.02) 05/08/22 04:43 Est GFR (MDRD) Af Amer > 60 (>60) 05/08/22 04:43 Est GFR (MDRD) Non-Af > 60 (>60) 05/08/22 04:43 Glucose 213 mg/dL (65-99) H 05/08/22 04:43 POC Glucose (mg/dL) 182 mg/dL (65-99) H 05/08/22 11:27 Lactic Acid 2.2 mmol/L (0.4-2.0) H 05/05/22 08:56 Calcium 8.1 mg/dL (8.5-10.1) L 05/08/22 04:43 Corrected Calcium 10.3 mg/dL (8.5-10.1) H 05/08/22 04:43 Magnesium 1.5 mg/dL (1.7-2.9) L 05/08/22 04:43 Total Bilirubin 0.30 mg/dL (0.2-1.0) 05/08/22 04:43 AST 37 Units/L (15-37) 05/08/22 04:43 ALT 20 Units/L (12-78) 05/08/22 04:43 Alkaline Phosphatase 113 Units/L (46-116) 05/08/22 04:43 Creatine Kinase 21 Units/L (26-192) L 05/04/22 21:12 CK-MB (CK-2) 1.0 ng/mL (0-4.0) 05/04/22 21:12 CK/CKMB % Calc 4.8 % (<4) 05/04/22 21:12 Troponin I High Sens 10.0 ng/L (4.0-60.0) 05/04/22 21:12 Total Protein 5.7 g/dL (6.4-8.2) L 05/08/22 04:43 Albumin 1.2 g/dL (3.4-5.0) L 05/08/22 04:43 Globulin 4.5 g/dL (2.5-4.5) 05/08/22 04:43 Albumin/Globulin Ratio 0.3 Ratio (1.1-2.1) L 05/08/22 04:43 Specimen Type Catherized urine 05/01/22 07:19 Urine Color Yellow (YELLOW) 05/01/22 07:19 Urine Appearance Hazy (CLEAR) 05/01/22 07:19 Urine pH 8.0 (5.0 - 8.0) 05/01/22 07:19 Ur Specific [place] 1.010 (1.000-1.030) 05/01/22 07:19 Urine Protein 3+ (NEGATIVE) 05/01/22 07:19 Urine Glucose (UA) 3+ (NEGATIVE) 05/01/22 07:19 Urine Ketones Negative (NEGATIVE) 05/01/22 07:19 Urine Blood 3+ (NEGATIVE) 05/01/22 07:19 Urine Nitrite Positive (NEGATIVE) 05/01/22 07:19 Urine Bilirubin Negative (NEGATIVE) 05/01/22 07:19 Urine Urobilinogen Normal (NORMAL) 05/01/22 07:19 Ur Leukocyte Esterase 3+ (NEGATIVE) 05/01/22 07:19 Urine RBC 10-20 /HPF (0-3) A 05/01/22 07:19 Urine WBC Tntc /HPF (0-5) A 05/01/22 07:19 Ur Squamous Epith Cells Negative /HPF (NEGATIVE) 05/01/22 07:19 Urine Bacteria 4+ /HPF (NEGATIVE) 05/01/22 07:19 Ur Culture Indicated? Yes/culture set up 05/01/22 07:19 Vancomycin Trough 11.2 ug/mL (15-20) L 05/07/22 08:29 SARS-CoV-2 (PCR) Negative (NEGATIVE) 05/01/22 14:18 - Plan (1) Bacteremia due to Enterobacter species Status: Acute Plan: CONTINUE IV ANTIBIOTICS, IV HYDRATION, MECHANICAL VENTILATION/OXYGEN SUPPORT, WOUND CARE, SKIN CARE. STRICT I&OS, DOMINIQUE CATH CARE. CONTINUOUS CARDIAC AND BP MONITORING. AM LABS, CXR AND ABG (2) CAD (coronary artery disease) Status: Acute (3) Acute respiratory failure Status: Acute (4) Dehiscence of closure of sternum or sternotomy Status: Acute (5) Infected surgical wound Status: Acute (6) UTI (urinary tract infection) Status: Acute
[2022-05-08] MEDS ORDERED: LEXAPRO ONE (20:07)
[2022-05-08] MEDS: LEXAPRO PO SCH (20:22)
[2022-05-08] MEDS: RESTORIL CAP 15 MG PO SCH (20:23)
[2022-05-08] MEDS: XANAX PO PRN (20:23)
[2022-05-08] MEDS: SNACK - Diabetic Appropriate PO SCH (20:24)
[2022-05-09] MEDS: MAGNESIUM SULFATE 1 GRAM/100 mL PREMIX 1 G/100 ML BAG IV PRN ×4 (02:29→13:00)
[2022-05-09 05:38] LABS: ALANINE AMINOTRANSFERASE 15 Units/L (12-78); ALBUMIN 1.2 g/dL (3.4-5.0); ALKALINE PHOSPHATASE 138 Units/L (46-116); ASPARTATE AMINO TRANSFERASE 35 Units/L (15-37); BLOOD UREA NITROGEN 18 mg/dL (7-18); CARBON DIOXIDE 21.5 mmol/L (21-32); CHLORIDE 111 mmol/L (98-107); COR CA(FOR HYPOALB) 10.2 mg/dL (8.5-10.1); COR NA(FOR HYPERGLY) 142 mmol/L (136-145); SODIUM 139 mmol/L (136-145); TOTAL PROTEIN 5.8 g/dL (6.4-8.2); eGFR NON BLACK RACES > 60 (>60)
[2022-05-09 05:46] LABS: ABG BASE EXCESS -3.4 mmol/L (-2.0-2.0); ABG HCO3 19.9 mmol/L (22-26)
[2022-05-09 05:48] LABS: ABG ALLEN TEST POS
[2022-05-09 06:10] LABS: BASOPHILS % (AUTO) 0.3 % (0.2-1.0); EOSINOPHILS # (AUTO) 0.3 x10^3/uL (0.0-0.2); EOSINOPHILS % (AUTO) 3.7 % (0.9-2.9); HEMATOCRIT 25.8 % (36.0-47.0); HEMOGLOBIN 8.6 g/dL (12.0-16.0); LYMPHOCYTES # (AUTO) 1.5 X10^3/uL (1.3-2.9); LYMPHOCYTES % (AUTO) 18.7 % (21.0-51.0); MEAN CORPUSCULAR HEMOGLOBIN 26.6 pg (27.0-34.0); MEAN CORPUSCULAR HGB CONC 33.4 g/dL (33.0-35.0); MEAN CORPUSCULAR VOLUME 79.8 fL (80.0-100.0); MEAN PLATELET VOLUME 8.7 fL (7.4-11.0); MONOCYTES # (AUTO) 0.6 x10^3/uL (0.3-0.8); MONOCYTES % (AUTO) 7.6 % (0.0-13.0); NEUTROPHILS # (AUTO) 5.4 x10^3/uL (2.2-4.8); NEUTROPHILS % (AUTO) 69.7 % (42.0-75.0); RED BLOOD COUNT 3.24 X10^6/uL (3.5-5.4); RED CELL DISTRIBUTION WIDTH 17.9 % (11.6-16.5); WHITE BLOOD COUNT 7.8 X10^3/uL (3.6-10.0)
[2022-05-09] MEDS: NS 1,000 ML IV 1,000 ML IV SCH ×2 (06:16→16:32)
[2022-05-09] MEDS: NEURONTIN CAP 300 MG PO SCH ×3 (06:16→21:01)
[2022-05-09] MEDS: DIPRIVAN PREMIX 1 GRAM IV 1,000 MG/100 ML VIAL IV PRN ×3 (06:18→21:09)
--- NOTE | 2022-05-09 06:39 | RAD ---
HISTORYFollow-upSTUDYAP [id number] egaly is probable although cardiac margins are obscured by increasing bilateral confluent airspace disease. Pleural effusions are now present slightly increased. Stable position of support lines. No pneumothorax seen.IMPRESSIONStable cardiomegaly with increasing bilateral airspace disease and pleural fluid consistent with pneumonia, CHF/edema.Electronically signed by: TEE CHONG (May 09, 2022 06:38:10)
[2022-05-09] MEDS: LASIX IVP SCH ×2 (08:08→14:59)
[2022-05-09] MEDS: LIPITOR TAB 40 MG PO SCH (08:09)
[2022-05-09] MEDS: LEVAQUIN PREMIX IV 750 MG 750 MG/150 ML BAG IV SCH (08:09)
[2022-05-09] MEDS: ASPIRIN EC 81 MG PO SCH (08:09)
[2022-05-09] MEDS: CORDARONE TAB 200 MG PO SCH ×2 (08:09→21:03)
[2022-05-09] MEDS: LOVENOX INJ 40 MG SYR SC SCH (08:10)
[2022-05-09] MEDS: POTASSIUM CHLORIDE LIQ 20 MEQ UDC NG SCH ×2 (08:10→20:34)
[2022-05-09] MEDS: ZEBETA TAB 5 MG PO SCH ×2 (08:10→21:06)
[2022-05-09] MEDS: VANCOMYCIN IV *PREMIX 1 G/200 ML BAG 1 G/200 ML PIGGYBACK IV SCH (10:24)
[2022-05-09] MEDS ORDERED: LASIX IVP ONE (12:00)
--- NOTE | 2022-05-09 14:45 | PCM.PROG ---
Progress Note - Progress Note for Day of Date of Exam: 05/09/22 - Subjective Subjective: Pt is a 61 year old female past medical history of CABGx3(02/2022), HFrEF(EF 40-45%), Atrial fibrillation, Pacemaker, DMT2, admitted for Sepsis, Enterobacter cloacae bacteremia, acute cystitis with proteus mirabilis, and dehiscence of the median sternotomy with an extensive abscess. This morning patient remains on the mechanical ventilator. Pt is currently requiring vasopressors on Levophed gtt for blood pressure support. She is sedated with propofol, has central line and NGT placed. Labs/imaging: Wbc 7.8, Hgb 8.6,Creatinine 0.80, O2sat 96% on FiO2 30%. Wound culture positive for staph aureus, proteus mirabilis, and enterobacter cloacae. Pt is currently receiving: IVF NS@75ml/h, IV antibiotics Vancomycin, Levaquin, SSI. Repeat blood cultures obtained on 05/05 without growth at this time. Wean/titrate vasopressors and FiO2 as tolerated. Patient's prognosis continues to remain poor at this time. Will continue with treatments and care. Pt is a limited DNR. Otherwise, continue with current treatment plan. Continue to closely monitor and follow up labs/imaging. Critical care time spent on clinical assessment, reviewing labs and imaging, decision making, and documentation greater than 75 minutes. - Past Medical Family Social History Past Med/Fam/Surg Hx: No changes since H&P Allergies: Allergies No Known Drug Allergies Allergy (Verified 05/01/22 09:52) - Review of Systems ROS: Changes notes (describe) (See HPI) - Vital Signs and I&O's Vital Signs: Temperature 98.3 F Pulse Rate [Right Radial] 80 Pulse Rate 75 Respiratory Rate 15 Blood Pressure [Right Arm] 138/90 Blood Pressure 106/57 O2 Sat by Pulse Oximetry 100 Intake and Output: Intake & Output 05/07/22 05/08/22 05/09/22 05/10/22 11:59 11:59 11:59 11:59 Intake Total 3251 / 3251 2986 / 2986 2958 / 2958 0 / 0 Output Total 1350 / 1350 3040 / 3040 1755 / 1755 Balance 1901 / 1901 -54 / -54 1203 / 1203 0 / 0 - Physical Exam Oriented: Unable to test (Pt is intubated now ..) Eyes: Normal Ear: Normal Nose: Normal Throat: Normal Respiratory: OTHER (infected median sternotomy incision with active drainage .) Cardiovascular: Normal : Normal Auscultation: Bowel Sounds: Normal Tenderness: Normal Skin: Wound (dehiscence of median sternotomy incision with large abscess) Musculoskeletal: Normal Psychiatric: Normal Mood Description: Calm, Appropriate Affect: Normal Speech Pattern: Artificially Ventilated - Laboratory and Diagnostics Result Diagrams: 05/09/22 05:00 05/09/22 05:00 Labs: 05/05/22 10:56 Blood Blood Culture - Preliminary 05/05/22 08:36 Blood Blood Culture - Preliminary 05/06/22 08:55 Sputum - Endotracheal Wash Sputum Culture - Preliminary 05/06/22 08:55 Sputum - Endotracheal Wash - Final 05/01/22 09:27 Blood Blood Culture - Final 05/01/22 09:15 Blood Blood Culture - Final Enterobacter Cloacae 05/01/22 10:00 Chest Wound Gram Stain - Final 05/01/22 10:00 Chest Wound Culture - Final Proteus Mirabilis Staphylococcus Aureus Enterobacter Cloacae 05/01/22 07:19 Urine,Catheterized Urine Culture - Final Proteus Mirabilis Laboratory WBC 7.8 X10^3/uL (3.6-10.0) 05/09/22 05:00 RBC 3.24 X10^6/uL (3.5-5.4) L 05/09/22 05:00 Hgb 8.6 g/dL (12.0-16.0) L 05/09/22 05:00 Hct 25.8 % (36.0-47.0) L 05/09/22 05:00 MCV 79.8 fL (80.0-100.0) L 05/09/22 05:00 MCH 26.6 pg (27.0-34.0) L 05/09/22 05:00 MCHC 33.4 g/dL (33.0-35.0) 05/09/22 05:00 RDW 17.9 % (11.6-16.5) H 05/09/22 05:00 Plt Count 255 X10^3/uL (150.0-450.0) 05/09/22 05:00 Plt Count Comment Decreased (ADEQUATE) A 05/02/22 04:00 MPV 8.7 fL (7.4-11.0) 05/09/22 05:00 Neut % (Auto) 69.7 % (42.0-75.0) 05/09/22 05:00 Lymph % (Auto) 18.7 % (21.0-51.0) L 05/09/22 05:00 [place] % (Auto) 7.6 % (0.0-13.0) 05/09/22 05:00 Eos % (Auto) 3.7 % (0.9-2.9) H 05/09/22 05:00 Baso % (Auto) 0.3 % (0.2-1.0) 05/09/22 05:00 Neut # (Auto) 5.4 x10^3/uL (2.2-4.8) H 05/09/22 05:00 Lymph # (Auto) 1.5 X10^3/uL (1.3-2.9) 05/09/22 05:00 Davis # (Auto) 0.6 x10^3/uL (0.3-0.8) 05/09/22 05:00 Eos # (Auto) 0.3 x10^3/uL (0.0-0.2) H 05/09/22 05:00 Baso # (Auto) 0.0 X10^3/uL (0.0-0.1) 05/09/22 05:00 Absolute Nucleated RBC 0.1 /100WBC 05/09/22 05:00 Total Counted 100 05/02/22 04:00 Neutrophils % (Manual) 78 % (39-76) H 05/02/22 04:00 Lymphocytes % (Manual) 15 % (13-43) 05/02/22 04:00 Monocytes % (Manual) 5 % (4-9) 05/02/22 04:00 Eosinophils % (Manual) 2 % (0-6) 05/02/22 04:00 Atypical Lymphocytes Few A 05/02/22 04:00 Plt Morphology Comment Normal (NORMAL) 05/02/22 04:00 RBC Morphology Abnormal (NORMAL) A 05/02/22 04:00 Hypochromasia Slight A 05/01/22 09:27 Anisocytosis Slight A 05/02/22 04:00 Microcytosis Slight A 05/01/22 09:27 Sample Site Rrad 05/09/22 05:45 ABG pH 7.430 (7.35-7.45) 05/09/22 05:45 ABG pCO2 30.0 mmHg (35.0-45.0) L 05/09/22 05:45 ABG pO2 142.0 mmHg (80.0-100.0) H 05/09/22 05:45 ABG HCO3 19.9 mmol/L (22-26) L 05/09/22 05:45 ABG O2 Saturation 99.0 % (90-100) 05/09/22 05:45 ABG Base Excess -3.4 mmol/L (-2.0-2.0) L 05/09/22 05:45 Cristobal Test Pos 05/09/22 05:45 A-a Gradient 34.0 mmHg 05/09/22 05:45 FiO2 30.0 05/09/22 05:45 Blood Gas Comments Luis well-mtf 05/09/22 05:45 Sodium 139 mmol/L (136-145) 05/09/22 05:00 Corrected Sodium 142 mmol/L (136-145) 05/09/22 05:00 Potassium 4.1 mmol/L (3.5-5.1) 05/09/22 05:00 Chloride 111 mmol/L (98-107) H 05/09/22 05:00 Carbon Dioxide 21.5 mmol/L (21-32) 05/09/22 05:00 BUN 18 mg/dL (7-18) 05/09/22 05:00 Creatinine 0.80 mg/dL (0.55-1.02) 05/09/22 05:00 Est GFR (MDRD) Af Amer > 60 (>60) 05/09/22 05:00 Est GFR (MDRD) Non-Af > 60 (>60) 05/09/22 05:00 Glucose 211 mg/dL (65-99) H 05/09/22 05:00 POC Glucose (mg/dL) 186 mg/dL (65-99) H 05/09/22 11:53 Lactic Acid 2.2 mmol/L (0.4-2.0) H 05/05/22 08:56 Calcium 8.0 mg/dL (8.5-10.1) L 05/09/22 05:00 Corrected Calcium 10.2 mg/dL (8.5-10.1) H 05/09/22 05:00 Magnesium 1.4 mg/dL (1.7-2.9) L 05/09/22 00:57 Total Bilirubin 0.20 mg/dL (0.2-1.0) 05/09/22 05:00 AST 35 Units/L (15-37) 05/09/22 05:00 ALT 15 Units/L (12-78) 05/09/22 05:00 Alkaline Phosphatase 138 Units/L (46-116) H 05/09/22 05:00 Creatine Kinase 21 Units/L (26-192) L 05/04/22 21:12 CK-MB (CK-2) 1.0 ng/mL (0-4.0) 05/04/22 21:12 CK/CKMB % Calc 4.8 % (<4) 05/04/22 21:12 Troponin I High Sens 10.0 ng/L (4.0-60.0) 05/04/22 21:12 Total Protein 5.8 g/dL (6.4-8.2) L 05/09/22 05:00 Albumin 1.2 g/dL (3.4-5.0) L 05/09/22 05:00 Globulin 4.6 g/dL (2.5-4.5) H 05/09/22 05:00 Albumin/Globulin Ratio 0.3 Ratio (1.1-2.1) L 05/09/22 05:00 Specimen Type Catherized urine 05/01/22 07:19 Urine Color Yellow (YELLOW) 05/01/22 07:19 Urine Appearance Hazy (CLEAR) 05/01/22 07:19 Urine pH 8.0 (5.0 - 8.0) 05/01/22 07:19 Ur Specific [place] 1.010 (1.000-1.030) 05/01/22 07:19 Urine Protein 3+ (NEGATIVE) 05/01/22 07:19 Urine Glucose (UA) 3+ (NEGATIVE) 05/01/22 07:19 Urine Ketones Negative (NEGATIVE) 05/01/22 07:19 Urine Blood 3+ (NEGATIVE) 05/01/22 07:19 Urine Nitrite Positive (NEGATIVE) 05/01/22 07:19 Urine Bilirubin Negative (NEGATIVE) 05/01/22 07:19 Urine Urobilinogen Normal (NORMAL) 05/01/22 07:19 Ur Leukocyte Esterase 3+ (NEGATIVE) 05/01/22 07:19 Urine RBC 10-20 /HPF (0-3) A 05/01/22 07:19 Urine WBC Tntc /HPF (0-5) A 05/01/22 07:19 Ur Squamous Epith Cells Negative /HPF (NEGATIVE) 05/01/22 07:19 Urine Bacteria 4+ /HPF (NEGATIVE) 05/01/22 07:19 Ur Culture Indicated? Yes/culture set up 05/01/22 07:19 Vancomycin Trough 11.2 ug/mL (15-20) L 05/07/22 08:29 SARS-CoV-2 (PCR) Negative (NEGATIVE) 05/01/22 14:18 - Plan (1) Bacteremia due to Enterobacter species Status: Acute Plan: CONTINUE IV ANTIBIOTICS, IV HYDRATION, MECHANICAL VENTILATION/OXYGEN SUPPORT, WOUND CARE, SKIN CARE. STRICT I&OS, DOMINIQUE CATH CARE. CONTINUOUS CAR DIAC AND BP MONITORING. AM LABS, CXR AND ABG (2) CAD (coronary artery disease) Status: Acute (3) Acute respiratory failure Status: Acute (4) Dehiscence of closure of sternum or sternotomy Status: Acute (5) Infected surgical wound Status: Acute (6) UTI (urinary tract infection) Status: Acute
[2022-05-09] MEDS ORDERED: LEXAPRO ONE (20:17)
[2022-05-09] MEDS: XANAX PO PRN (20:34)
[2022-05-09] MEDS: NovoLIN R (or HumuLIN R) SUBCUT PRN (20:35)
[2022-05-09] MEDS: LEXAPRO PO SCH (20:35)
[2022-05-09] MEDS: SNACK - Diabetic Appropriate PO SCH (21:02)
[2022-05-09] MEDS: RESTORIL CAP 15 MG PO SCH (21:05)
[2022-05-10] MEDS: NS 1,000 ML IV 1,000 ML IV SCH ×3 (03:30→18:24)
[2022-05-10] MEDS: DIPRIVAN PREMIX 1 GRAM IV 1,000 MG/100 ML VIAL IV PRN ×2 (04:04→15:44)
[2022-05-10 05:18] LABS: BASOPHILS % (AUTO) 0.2 % (0.2-1.0); EOSINOPHILS # (AUTO) 0.3 x10^3/uL (0.0-0.2); EOSINOPHILS % (AUTO) 3.3 % (0.9-2.9); HEMATOCRIT 25.2 % (36.0-47.0); HEMOGLOBIN 8.3 g/dL (12.0-16.0); LYMPHOCYTES # (AUTO) 1.8 X10^3/uL (1.3-2.9); LYMPHOCYTES % (AUTO) 22.8 % (21.0-51.0); MEAN CORPUSCULAR HEMOGLOBIN 25.8 pg (27.0-34.0); MEAN CORPUSCULAR HGB CONC 32.9 g/dL (33.0-35.0); MEAN CORPUSCULAR VOLUME 78.5 fL (80.0-100.0); MEAN PLATELET VOLUME 8.4 fL (7.4-11.0); MONOCYTES # (AUTO) 0.7 x10^3/uL (0.3-0.8); MONOCYTES % (AUTO) 9.4 % (0.0-13.0); NEUTROPHILS # (AUTO) 5.1 x10^3/uL (2.2-4.8); NEUTROPHILS % (AUTO) 64.3 % (42.0-75.0); RED CELL DISTRIBUTION WIDTH 17.9 % (11.6-16.5)
[2022-05-10 05:31] LABS: ALANINE AMINOTRANSFERASE 13 Units/L (12-78); ALBUMIN 1.1 g/dL (3.4-5.0); ALKALINE PHOSPHATASE 98 Units/L (46-116); ASPARTATE AMINO TRANSFERASE 29 Units/L (15-37); BLOOD UREA NITROGEN 18 mg/dL (7-18); CALCIUM 7.9 mg/dL (8.5-10.1); CARBON DIOXIDE 22.7 mmol/L (21-32); CHLORIDE 112 mmol/L (98-107); COR CA(FOR HYPOALB) 10.2 mg/dL (8.5-10.1); COR NA(FOR HYPERGLY) 143 mmol/L (136-145); CREATININE 0.87 mg/dL (0.55-1.02); MAGNESIUM 1.9 mg/dL (1.7-2.9); SODIUM 141 mmol/L (136-145); TOTAL PROTEIN 5.5 g/dL (6.4-8.2); eGFR NON BLACK RACES > 60 (>60)
[2022-05-10 05:44] LABS: ABG ALLEN TEST POS; ABG BASE EXCESS -1.7 mmol/L (-2.0-2.0); ABG HCO3 21.7 mmol/L (22-26)
[2022-05-10] MEDS: NEURONTIN CAP 300 MG PO SCH ×3 (06:14→21:02)
--- NOTE | 2022-05-10 07:28 | RAD ---
HISTORYFollow-up lung infiltrates, respiratory failureSTUDYChest AP [id number]/[id number] e is an endotracheal tube in good position. There is a nasogastric tube coursing below the left hemidiaphragm. Its tip is not visible. There is a right IJ line in good position. There is a left-sided pacemaker present. Heart remains enlarged. Diffuse right lung infiltrate present. Persistent increased density retrocardiac area of the left lower lobe which could be on the basis of pleural effusion, atelectasis, infiltrate or combination. Right pleural effusion appears decreased when compared to the prior examination. Bony thorax is unremarkable.IMPRESSIONDiffuse right lung infiltrateDecreasing right pleural effusionPersistent increased density retrocardiac area left lower lobe. Differential diagnosis as above. Finding is unchangedElectronically signed by: CELINA BOWLES (May 10, 2022 07:26:37)
[2022-05-10] MEDS: LASIX IVP SCH ×2 (08:14→14:06)
[2022-05-10] MEDS: ASPIRIN EC 81 MG PO SCH (08:15)
[2022-05-10] MEDS: LIPITOR TAB 40 MG PO SCH (08:15)
[2022-05-10] MEDS: LOVENOX INJ 40 MG SYR SC SCH (08:15)
[2022-05-10] MEDS: CORDARONE TAB 200 MG PO SCH ×2 (08:15→20:48)
[2022-05-10] MEDS: LEVAQUIN PREMIX IV 750 MG 750 MG/150 ML BAG IV SCH (08:15)
[2022-05-10] MEDS: ZEBETA TAB 5 MG PO SCH ×2 (08:16→20:49)
[2022-05-10] MEDS: POTASSIUM CHLORIDE LIQ 20 MEQ UDC NG SCH ×2 (08:16→20:48)
[2022-05-10] MEDS ORDERED: PHARMACY COMMENT IV ONE (09:00)
[2022-05-10 09:35] LABS: CREATININE 0.8 mg/dL (0.55-1.02); VANCOMYCIN,TROUGH 10.7 ug/mL (15-20)
--- NOTE | 2022-05-10 09:52 | DR.PROGNOT ---
Hospital Progress Notes - Progress Note for Day of: Progress Note Date: 05/10/22 - Chief Complaint Chief Complaint: seems to be stable now .. still having excessive drainage from the chest incision .. dressing ere changed and repacked . - Past Medical Family Social History Past Med/Fam/Surg Hx: No changes since H&P Allergies: Allergies No Known Drug Allergies Allergy (Verified 05/01/22 09:52) - Review Of Systems ROS: Changes notes (describe) (See HPI) - Vital Signs Vital Signs: Temperature 99.1 F Pulse Rate [Right Radial] 80 Pulse Rate 75 Respiratory Rate 25 Blood Pressure [Right Arm] 138/90 Blood Pressure 105/56 O2 Sat by Pulse Oximetry 100 - Physical Exam Oriented: Unable to test (Pt is intubated now ..) Eyes: Normal Ear: Normal Nose: Normal Throat: Normal Respiratory: OTHER (infected median sternotomy incision with active drainage .) Cardiovascular: Normal : Normal GI:Auscultation: Normal GI:Palpation: Normal GI: Tenderness: Normal Skin: Wound (dehiscence of median sternotomy incision with large abscess) Musculoskeletal: Normal Psychiatric: Normal Mood Description: Calm, Appropriate Affect: Normal Speech Pattern: Artificially Ventilated - Laboratory and Diagnostics Result Diagrams: 05/10/22 04:45 05/10/22 09:00 Labs: 05/05/22 10:56 Blood Blood Culture - Preliminary 05/05/22 08:36 Blood Blood Culture - Preliminary 05/06/22 08:55 Sputum - Endotracheal Wash Sputum Culture - Preliminary 05/06/22 08:55 Sputum - Endotracheal Wash - Final 05/01/22 09:27 Blood Blood Culture - Final 05/01/22 09:15 Blood Blood Culture - Final Enterobacter Cloacae 05/01/22 10:00 Chest Wound Gram Stain - Final 05/01/22 10:00 Chest Wound Culture - Final Proteus Mirabilis Staphylococcus Aureus Enterobacter Cloacae 05/01/22 07:19 Urine,Catheterized Urine Culture - Final Proteus Mirabilis Laboratory WBC 8.0 X10^3/uL (3.6-10.0) 05/10/22 04:45 RBC 3.20 X10^6/uL (3.5-5.4) L 05/10/22 04:45 Hgb 8.3 g/dL (12.0-16.0) L 05/10/22 04:45 Hct 25.2 % (36.0-47.0) L 05/10/22 04:45 MCV 78.5 fL (80.0-100.0) L 05/10/22 04:45 MCH 25.8 pg (27.0-34.0) L 05/10/22 04:45 MCHC 32.9 g/dL (33.0-35.0) L 05/10/22 04:45 RDW 17.9 % (11.6-16.5) H 05/10/22 04:45 Plt Count 234 X10^3/uL (150.0-450.0) 05/10/22 04:45 Plt Count Comment Decreased (ADEQUATE) A 05/02/22 04:00 MPV 8.4 fL (7.4-11.0) 05/10/22 04:45 Neut % (Auto) 64.3 % (42.0-75.0) 05/10/22 04:45 Lymph % (Auto) 22.8 % (21.0-51.0) 05/10/22 04:45 [place] % (Auto) 9.4 % (0.0-13.0) 05/10/22 04:45 Eos % (Auto) 3.3 % (0.9-2.9) H 05/10/22 04:45 Baso % (Auto) 0.2 % (0.2-1.0) 05/10/22 04:45 Neut # (Auto) 5.1 x10^3/uL (2.2-4.8) H 05/10/22 04:45 Lymph # (Auto) 1.8 X10^3/uL (1.3-2.9) 05/10/22 04:45 [place] # (Auto) 0.7 x10^3/uL (0.3-0.8) 05/10/22 04:45 Eos # (Auto) 0.3 x10^3/uL (0.0-0.2) H 05/10/22 04:45 Baso # (Auto) 0.0 X10^3/uL (0.0-0.1) 05/10/22 04:45 Absolute Nucleated RBC 0.0 /100WBC 05/10/22 04:45 Total Counted 100 05/02/22 04:00 Neutrophils % (Manual) 78 % (39-76) H 05/02/22 04:00 Lymphocytes % (Manual) 15 % (13-43) 05/02/22 04:00 Monocytes % (Manual) 5 % (4-9) 05/02/22 04:00 Eosinophils % (Manual) 2 % (0-6) 05/02/22 04:00 Atypical Lymphocytes Few A 05/02/22 04:00 Plt Morphology Comment Normal (NORMAL) 05/02/22 04:00 RBC Morphology Abnormal (NORMAL) A 05/02/22 04:00 Hypochromasia Slight A 05/01/22 09:27 Anisocytosis Slight A 05/02/22 04:00 Microcytosis Slight A 05/01/22 09:27 Sample Site Lr 05/10/22 05:00 ABG pH 7.440 (7.35-7.45) 05/10/22 05:00 ABG pCO2 32.0 mmHg (35.0-45.0) L 05/10/22 05:00 ABG pO2 83.0 mmHg (80.0-100.0) 05/10/22 05:00 ABG HCO3 21.7 mmol/L (22-26) L 05/10/22 05:00 ABG O2 Saturation 97.0 % (90-100) 05/10/22 05:00 ABG Base Excess -1.7 mmol/L (-2.0-2.0) 05/10/22 05:00 Cristobal Test Pos 05/10/22 05:00 A-a Gradient 91.0 mmHg 05/10/22 05:00 FiO2 30.0 05/10/22 05:00 Blood Gas Comments Luis well 05/10/22 05:00 Sodium 141 mmol/L (136-145) 05/10/22 04:45 Corrected Sodium 143 mmol/L (136-145) 05/10/22 04:45 Potassium 4.1 mmol/L (3.5-5.1) 05/10/22 04:45 Chloride 112 mmol/L (98-107) H 05/10/22 04:45 Carbon Dioxide 22.7 mmol/L (21-32) 05/10/22 04:45 BUN 18 mg/dL (7-18) 05/10/22 04:45 Creatinine 0.80 mg/dL (0.55-1.02) 05/10/22 09:00 Est GFR (MDRD) Af Amer > 60 (>60) 05/10/22 04:45 Est GFR (MDRD) Non-Af > 60 (>60) 05/10/22 04:45 Glucose 181 mg/dL (65-99) H 05/10/22 04:45 POC Glucose (mg/dL) 216 mg/dL (65-99) H 05/09/22 19:58 Lactic Acid 2.2 mmol/L (0.4-2.0) H 05/05/22 08:56 Calcium 7.9 mg/dL (8.5-10.1) L 05/10/22 04:45 Corrected Calcium 10.2 mg/dL (8.5-10.1) H 05/10/22 04:45 Magnesium 1.9 mg/dL (1.7-2.9) 05/10/22 04:45 Total Bilirubin 0.20 mg/dL (0.2-1.0) 05/10/22 04:45 AST 29 Units/L (15-37) 05/10/22 04:45 ALT 13 Units/L (12-78) 05/10/22 04:45 Alkaline Phosphatase 98 Units/L (46-116) 05/10/22 04:45 Creatine Kinase 21 Units/L (26-192) L 05/04/22 21:12 CK-MB (CK-2) 1.0 ng/mL (0-4.0) 05/04/22 21:12 CK/CKMB % Calc 4.8 % (<4) 05/04/22 21:12 Troponin I High Sens 10.0 ng/L (4.0-60.0) 05/04/22 21:12 Total Protein 5.5 g/dL (6.4-8.2) L 05/10/22 04:45 Albumin 1.1 g/dL (3.4-5.0) L 05/10/22 04:45 Globulin 4.4 g/dL (2.5-4.5) 05/10/22 04:45 Albumin/Globulin Ratio 0.3 Ratio (1.1-2.1) L 05/10/22 04:45 Specimen Type Catherized urine 05/01/22 07:19 Urine Color Yellow (YELLOW) 05/01/22 07:19 Urine Appearance Hazy (CLEAR) 05/01/22 07:19 Urine pH 8.0 (5.0 - 8.0) 05/01/22 07:19 Ur Specific [place] 1.010 (1.000-1.030) 05/01/22 07:19 Urine Protein 3+ (NEGATIVE) 05/01/22 07:19 Urine Glucose (UA) 3+ (NEGATIVE) 05/01/22 07:19 Urine Ketones Negative (NEGATIVE) 05/01/22 07:19 Urine Blood 3+ (NEGATIVE) 05/01/22 07:19 Urine Nitrite Positive (NEGATIVE) 05/01/22 07:19 Urine Bilirubin Negative (NEGATIVE) 05/01/22 07:19 Urine Urobilinogen Normal (NORMAL) 05/01/22 07:19 Ur Leukocyte Esterase 3+ (NEGATIVE) 05/01/22 07:19 Urine RBC 10-20 /HPF (0-3) A 05/01/22 07:19 Urine WBC Tntc /HPF (0-5) A 05/01/22 07:19 Ur Squamous Epith Cells Negative /HPF (NEGATIVE) 05/01/22 07:19 Urine Bacteria 4+ /HPF (NEGATIVE) 05/01/22 07:19 Ur Culture Indicated? Yes/culture set up 05/01/22 07:19 Vancomycin Trough 10.7 ug/mL (15-20) L 05/10/22 09:00 SARS-CoV-2 (PCR) Negative (NEGATIVE) 05/01/22 14:18 - Assessment and Plan 2: infected median sternotomy incision with dehisced incision and deep abscess .could not transfer Pt so far. same local care : change dressing daily and repack .. IV ABT to cover the Staph and Enterobac . nutritional support and control of DM .. - Problem Patient Problems: Patient Problems CAD (coronary artery disease) (Acute) I25.10 Acute respiratory failure (Acute) J96.00 Bacteremia due to Enterobacter species (Acute) R78.81, B96.89 Dehiscence of closure of sternum or sternotomy (Acute) T81.32XA Acute dehydration (Acute) E86.0 Acute hyponatremia (Acute) E87.1 Infected surgical wound (Acute) T81.49XA UTI (urinary tract infection) (Acute) N39.0
[2022-05-10] MEDS: VANCOMYCIN IV *PREMIX 1.25 G/250 ML BAG 1.25 G/250 ML PIGGYBACK IV SCH (10:51)
[2022-05-10] MEDS: NovoLIN R (or HumuLIN R) SUBCUT PRN (16:39)
[2022-05-10] MEDS ORDERED: LEXAPRO ONE (20:19)
[2022-05-10] MEDS: LEXAPRO PO SCH (20:47)
[2022-05-10] MEDS: SNACK - Diabetic Appropriate PO SCH (20:47)
[2022-05-10] MEDS: RESTORIL CAP 15 MG PO SCH (20:49)
[2022-05-11] MEDS: DIPRIVAN PREMIX 1 GRAM IV 1,000 MG/100 ML VIAL IV PRN ×4 (01:22→21:05)
[2022-05-11 05:01] LABS: ABG ALLEN TEST POS; ABG BASE EXCESS -2.8 mmol/L (-2.0-2.0); ABG HCO3 20.6 mmol/L (22-26)
[2022-05-11 05:04] LABS: BASOPHILS % (AUTO) 0.3 % (0.2-1.0); EOSINOPHILS # (AUTO) 0.2 x10^3/uL (0.0-0.2); EOSINOPHILS % (AUTO) 2.5 % (0.9-2.9); HEMATOCRIT 26.5 % (36.0-47.0); HEMOGLOBIN 8.8 g/dL (12.0-16.0); LYMPHOCYTES # (AUTO) 1.7 X10^3/uL (1.3-2.9); MEAN CORPUSCULAR HGB CONC 33.2 g/dL (33.0-35.0); MEAN CORPUSCULAR VOLUME 78.3 fL (80.0-100.0); MEAN PLATELET VOLUME 8.1 fL (7.4-11.0); MONOCYTES # (AUTO) 0.8 x10^3/uL (0.3-0.8); MONOCYTES % (AUTO) 8.6 % (0.0-13.0); NEUTROPHILS # (AUTO) 6.6 x10^3/uL (2.2-4.8); NEUTROPHILS % (AUTO) 70.6 % (42.0-75.0); RED BLOOD COUNT 3.38 X10^6/uL (3.5-5.4); RED CELL DISTRIBUTION WIDTH 17.6 % (11.6-16.5); WHITE BLOOD COUNT 9.3 X10^3/uL (3.6-10.0)
[2022-05-11] MEDS: NS 1,000 ML IV 1,000 ML IV SCH ×3 (05:13→21:08)
[2022-05-11] MEDS: NEURONTIN CAP 300 MG PO SCH ×3 (05:14→21:09)
[2022-05-11 05:16] LABS: ALANINE AMINOTRANSFERASE 18 Units/L (12-78); ALBUMIN 1.3 g/dL (3.4-5.0); ALKALINE PHOSPHATASE 110 Units/L (46-116); ASPARTATE AMINO TRANSFERASE 34 Units/L (15-37); BLOOD UREA NITROGEN 18 mg/dL (7-18); CALCIUM 8.1 mg/dL (8.5-10.1); CARBON DIOXIDE 22.5 mmol/L (21-32); CHLORIDE 112 mmol/L (98-107); COR CA(FOR HYPOALB) 10.3 mg/dL (8.5-10.1); COR NA(FOR HYPERGLY) 142 mmol/L (136-145); CREATININE 0.75 mg/dL (0.55-1.02); SODIUM 140 mmol/L (136-145); TOTAL PROTEIN 5.9 g/dL (6.4-8.2); eGFR NON BLACK RACES > 60 (>60)
--- NOTE | 2022-05-11 07:53 | PCM.PROG ---
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 This morning patient remains on the mechanical ventilator. Over the weekend her vasopressors Levophed gtt have been able to be gradually weaned down and this morning we are going to discontinue. She is sedated with propofol, has central line and NGT placed. Labs/imaging: Wbc 8, Hgb 8.3, Plt 234, Na 141, K 4.1, Creatinine 0.87, Glucose 181, ABG: pH 7.44, pCO2 32, pO2 83, HCO3 21, O2sat 97% on FiO2 30%. Woun d culture positive for staph aureus, proteus mirabilis, and enterobacter cloacae. CXR was obtained that revealed: Diffuse right lung infiltrate.Decreasing right pleural effusion. Persistent increased density retrocardiac area left lower lobe. Differential diagnosis as above. Finding is unchanged. Pt is currently receiving: IVF NS@75ml/h, IV antibiotics Vancomycin, Levaquin, SSI. Repeat blood cultures obtained on 05/05 without growth at this time. Will attempt today to extubate patient. Will continue with treatments and care. Pt is a limited DNR. Otherwise, continue with current treatment plan. Continue to closely monitor and follow up labs/imaging. Critical care time spent on clinical assessment, reviewing labs and imaging, decision making, and documentation greater than 75 minutes. Past Medical Family Social History Past Med/Fam/Surg Hx: No changes since H&P Allergies: Allergies No Known Drug Allergies Allergy (Verified 05/01/22 09:52) Review of Systems ROS: Changes notes (describe) (See HPI) Vital Signs and I&O's Vital Signs: Temperature 98.6 F Pulse Rate [Right Radial] 80 Pulse Rate 75 Respiratory Rate 15 Blood Pressure [Right Arm] 138/90 Blood Pressure 135/62 O2 Sat by Pulse Oximetry 100 Intake and Output: Intake & Output 05/08/22 05/09/22 05/10/22 05/11/22 23:59 23:59 23:59 23:59 Intake Total 3024 / 3024 2901 / 2901 2671 / 2671 683 / 683 Output Total 1725 / 1725 2393 / 2393 1648 / 1648 850 / 850 Balance 1299 / 1299 508 / 508 1023 / 1023 -167 / -167 Physical Exam Oriented: Unable to test (Pt is intubated now ..) Eyes: Normal Ear: Normal Nose: Normal Throat: Normal Respiratory: OTHER (infected median sternotomy incision with active drainage .) Cardiovascular: Normal : Normal Auscultation: Bowel Sounds: Normal Tenderness: Normal Skin: Wound (dehiscence of median sternotomy incision with large abscess ) Musculoskeletal: Normal Psychiatric: Normal Mood Description: Calm and Appropriate Affect: Normal Speech Pattern: Artificially Ventilated Laboratory and Diagnostics Result Diagrams: 05/11/22 04:21 05/11/22 04:21 Labs: 05/05/22 10:56 Blood Blood Culture - Preliminary 05/05/22 08:36 Blood Blood Culture - Preliminary 05/06/22 08:55 Sputum - Endotracheal Wash Sputum Culture - Preliminary 05/06/22 08:55 Sputum - Endotracheal Wash - Final 05/01/22 09:27 Blood Blood Culture - Final 05/01/22 09:15 Blood Blood Culture - Final Enterobacter Cloacae 05/01/22 10:00 Chest Wound Gram Stain - Final 05/01/22 10:00 Chest Wound Culture - Final Proteus Mirabilis Staphylococcus Aureus Enterobacter Cloacae 05/01/22 07:19 Urine,Catheterized Urine Culture - Final Proteus Mirabilis Laboratory WBC 9.3 X10^3/uL (3.6-10.0) 05/11/22 04:21 RBC 3.38 X10^6/uL (3.5-5.4) L 05/11/22 04:21 Hgb 8.8 g/dL (12.0-16.0) L 05/11/22 04:21 Hct 26.5 % (36.0-47.0) L 05/11/22 04:21 MCV 78.3 fL (80.0-100.0) L 05/11/22 04:21 MCH 26.0 pg (27.0-34.0) L 05/11/22 04:21 MCHC 33.2 g/dL (33.0-35.0) 05/11/22 04:21 RDW 17.6 % (11.6-16.5) H 05/11/22 04:21 Plt Count 255 X10^3/uL (150.0-450.0) 05/11/22 04:21 Plt Count Comment Decreased (ADEQUATE) A 05/02/22 04:00 MPV 8.1 fL (7.4-11.0) 05/11/22 04:21 Neut % (Auto) 70.6 % (42.0-75.0) 05/11/22 04:21 Lymph % (Auto) 18.0 % (21.0-51.0) L 05/11/22 04:21 [place] % (Auto) 8.6 % (0.0-13.0) 05/11/22 04:21 Eos % (Auto) 2.5 % (0.9-2.9) 05/11/22 04:21 Baso % (Auto) 0.3 % (0.2-1.0) 05/11/22 04:21 Neut # (Auto) 6.6 x10^3/uL (2.2-4.8) H 05/11/22 04:21 Lymph # (Auto) 1.7 X10^3/uL (1.3-2.9) 05/11/22 04:21 [place] # (Auto) 0.8 x10^3/uL (0.3-0.8) 05/11/22 04:21 Eos # (Auto) 0.2 x10^3/uL (0.0-0.2) 05/11/22 04:21 Baso # (Auto) 0.0 X10^3/uL (0.0-0.1) 05/11/22 04:21 Absolute Nucleated RBC 0.1 /100WBC 05/11/22 04:21 Total Counted 100 05/02/22 04:00 Neutrophils % (Manual) 78 % (39-76) H 05/02/22 04:00 Lymphocytes % (Manual) 15 % (13-43) 05/02/22 04:00 Monocytes % (Manual) 5 % (4-9) 05/02/22 04:00 Eosinophils % (Manual) 2 % (0-6) 05/02/22 04:00 Atypical Lymphocytes Few A 05/02/22 04:00 Plt Morphology Comment Normal (NORMAL) 05/02/22 04:00 RBC Morphology Abnormal (NORMAL) A 05/02/22 04:00 Hypochromasia Slight A 05/01/22 09:27 Anisocytosis Slight A 05/02/22 04:00 Microcytosis Slight A 05/01/22 09:27 Sample Site Lr 05/11/22 05:00 ABG pH 7.430 (7.35-7.45) 05/11/22 05:00 ABG pCO2 31.0 mmHg (35.0-45.0) L 05/11/22 05:00 ABG pO2 83.0 mmHg (80.0-100.0) 05/11/22 05:00 ABG HCO3 20.6 mmol/L (22-26) L 05/11/22 05:00 ABG O2 Saturation 96.0 % (90-100) 05/11/22 05:00 ABG Base Excess -2.8 mmol/L (-2.0-2.0) L 05/11/22 05:00 Cristobal Test Pos 05/11/22 05:00 A-a Gradient 92.0 mmHg 05/11/22 05:00 FiO2 30.0 05/11/22 05:00 Blood Gas Comments Luis well sw 05/11/22 05:00 Sodium 140 mmol/L (136-145) 05/11/22 04:21 Corrected Sodium 142 mmol/L (136-145) 05/11/22 04:21 Potassium 4.0 mmol/L (3.5-5.1) 05/11/22 04:21 Chloride 112 mmol/L (98-107) H 05/11/22 04:21 Carbon Dioxide 22.5 mmol/L (21-32) 05/11/22 04:21 BUN 18 mg/dL (7-18) 05/11/22 04:21 Creatinine 0.75 mg/dL (0.55-1.02) 05/11/22 04:21 Est GFR (MDRD) Af Amer > 60 (>60) 05/11/22 04:21 Est GFR (MDRD) Non-Af > 60 (>60) 05/11/22 04:21 Glucose 181 mg/dL (65-99) H 05/11/22 04:21 POC Glucose (mg/dL) 196 mg/dL (65-99) H 05/10/22 19:57 Lactic Acid 2.2 mmol/L (0.4-2.0) H 05/05/22 08:56 Calcium 8.1 mg/dL (8.5-10.1) L 05/11/22 04:21 Corrected Calcium 10.3 mg/dL (8.5-10.1) H 05/11/22 04:21 Magnesium 1.9 mg/dL (1.7-2.9) 05/10/22 04:45 Total Bilirubin 0.30 mg/dL (0.2-1.0) 05/11/22 04:21 AST 34 Units/L (15-37) 05/11/22 04:21 ALT 18 Units/L (12-78) 05/11/22 04:21 Alkaline Phosphatase 110 Units/L (46-116) 05/11/22 04:21 Creatine Kinase 21 Units/L (26-192) L 05/04/22 21:12 CK-MB (CK-2) 1.0 ng/mL (0-4.0) 05/04/22 21:12 CK/CKMB % Calc 4.8 % (<4) 05/04/22 21:12 Troponin I High Sens 10.0 ng/L (4.0-60.0) 05/04/22 21:12 Total Protein 5.9 g/dL (6.4-8.2) L 05/11/22 04:21 Albumin 1.3 g/dL (3.4-5.0) L 05/11/22 04:21 Globulin 4.6 g/dL (2.5-4.5) H 05/11/22 04:21 Albumin/Globulin Ratio 0.3 Ratio (1.1-2.1) L 05/11/22 04:21 Specimen Type Catherized urine 05/01/22 07:19 Urine Color Yellow (YELLOW) 05/01/22 07:19 Urine Appearance Hazy (CLEAR) 05/01/22 07:19 Urine pH 8.0 (5.0 - 8.0) 05/01/22 07:19 Ur Specific [place] 1.010 (1.000-1.030) 05/01/22 07:19 Urine Protein 3+ (NEGATIVE) 05/01/22 07:19 Urine Glucose (UA) 3+ (NEGATIVE) 05/01/22 07:19 Urine Ketones Negative (NEGATIVE) 05/01/22 07:19 Urine Blood 3+ (NEGATIVE) 05/01/22 07:19 Urine Nitrite Positive (NEGATIVE) 05/01/22 07:19 Urine Bilirubin Negative (NEGATIVE) 05/01/22 07:19 Urine Urobilinogen Normal (NORMAL) 05/01/22 07:19 Ur Leukocyte Esterase 3+ (NEGATIVE) 05/01/22 07:19 Urine RBC 10-20 /HPF (0-3) A 05/01/22 07:19 Urine WBC Tntc /HPF (0-5) A 05/01/22 07:19 Ur Squamous Epith Cells Negative /HPF (NEGATIVE) 05/01/22 07:19 Urine Bacteria 4+ /HPF (NEGATIVE) 05/01/22 07:19 Ur Culture Indicated? Yes/culture set up 05/01/22 07:19 Stool Description Soft brown 05/10/22 17:15 Stl Occult Blood (IFOB) Negative (NEGATIVE) 05/10/22 17:15 Stl C. diff Tox B Gene Negative (NEGATIVE) 05/10/22 17:15 Stl C. diff [id number] Presumptive negative (NEGATIVE) 05/10/22 17:15 Vancomycin Trough 10.7 ug/mL (15-20) L 05/10/22 09:00 SARS-CoV-2 (PCR) Negative (NEGATIVE) 05/01/22 14:18 Plan (1) Bacteremia due to Enterobacter species: Status: Acute Plan: CONTINUE IV ANTIBIOTICS, IV HYDRATION, MECHANICAL VENTILATION/OXYGEN SUPPORT, WOUND CARE, SKIN CARE STRICT I&OS, DOMINIQUE CATH CARE CONTINUOUS CARDIAC AND BP MONITORING AM LABS, CXR AND ABG (2) CAD (coronary artery disease): Status: Acute (3) Acute respiratory failure: Status: Acute (4) Dehiscence of closure of sternum or sternotomy: Status: Acute (5) Infected surgical wound: Status: Acute (6) UTI (urinary tract infection): Status: Acute
[2022-05-11] MEDS: LASIX IVP SCH ×2 (08:00→14:56)
[2022-05-11] MEDS: CORDARONE TAB 200 MG PO SCH ×2 (08:01→21:07)
[2022-05-11] MEDS: ASPIRIN EC 81 MG PO SCH (08:01)
[2022-05-11] MEDS: LIPITOR TAB 40 MG PO SCH (08:01)
[2022-05-11] MEDS: LEVAQUIN PREMIX IV 750 MG 750 MG/150 ML BAG IV SCH (08:01)
[2022-05-11] MEDS: LOVENOX INJ 40 MG SYR SC SCH (08:02)
[2022-05-11] MEDS: ZEBETA TAB 5 MG PO SCH ×2 (08:02→21:08)
[2022-05-11] MEDS: POTASSIUM CHLORIDE LIQ 20 MEQ UDC NG SCH ×2 (08:02→21:08)
[2022-05-11] MEDS: LEVOPHED 8 MG/250 ML IV *PREMIX 8 MG/250 ML PLAST..BAG IV PRN (10:00)
[2022-05-11] MEDS: VANCOMYCIN IV *PREMIX 1.25 G/250 ML BAG 1.25 G/250 ML PIGGYBACK IV SCH (10:25)
[2022-05-11] MEDS ORDERED: LEXAPRO ONE (20:28)
[2022-05-11] MEDS: LEXAPRO PO SCH (21:07)
[2022-05-11] MEDS: SNACK - Diabetic Appropriate PO SCH (21:07)
[2022-05-11] MEDS: RESTORIL CAP 15 MG PO SCH (21:08)
[2022-05-12] MEDS: NS 1,000 ML IV 1,000 ML IV SCH ×2 (00:46→12:44)
[2022-05-12] MEDS: DIPRIVAN PREMIX 1 GRAM IV 1,000 MG/100 ML VIAL IV PRN ×3 (01:59→15:10)
[2022-05-12 05:00] LABS: ABG ALLEN TEST POS; ABG BASE EXCESS -2.8 mmol/L (-2.0-2.0); ABG HCO3 20.6 mmol/L (22-26)
[2022-05-12 05:19] LABS: BASOPHILS # (AUTO) 0.1 X10^3/uL (0.0-0.1); BASOPHILS % (AUTO) 0.8 % (0.2-1.0); EOSINOPHILS # (AUTO) 0.4 x10^3/uL (0.0-0.2); EOSINOPHILS % (AUTO) 3.3 % (0.9-2.9); HEMATOCRIT 25.5 % (36.0-47.0); HEMOGLOBIN 8.5 g/dL (12.0-16.0); LYMPHOCYTES % (AUTO) 18.4 % (21.0-51.0); MEAN CORPUSCULAR HEMOGLOBIN 25.9 pg (27.0-34.0); MEAN CORPUSCULAR HGB CONC 33.3 g/dL (33.0-35.0); MEAN CORPUSCULAR VOLUME 77.7 fL (80.0-100.0); MEAN PLATELET VOLUME 8.5 fL (7.4-11.0); MONOCYTES % (AUTO) 8.9 % (0.0-13.0); NEUTROPHILS # (AUTO) 7.4 x10^3/uL (2.2-4.8); NEUTROPHILS % (AUTO) 68.6 % (42.0-75.0); RED BLOOD COUNT 3.28 X10^6/uL (3.5-5.4); RED CELL DISTRIBUTION WIDTH 17.3 % (11.6-16.5); WHITE BLOOD COUNT 10.8 X10^3/uL (3.6-10.0)
[2022-05-12] MEDS: NEURONTIN CAP 300 MG PO SCH ×2 (05:29→16:33)
[2022-05-12 05:34] LABS: ALANINE AMINOTRANSFERASE 15 Units/L (12-78); ALBUMIN 1.3 g/dL (3.4-5.0); ALKALINE PHOSPHATASE 100 Units/L (46-116); ASPARTATE AMINO TRANSFERASE 30 Units/L (15-37); BLOOD UREA NITROGEN 15 mg/dL (7-18); CALCIUM 8.1 mg/dL (8.5-10.1); CARBON DIOXIDE 23.8 mmol/L (21-32); CHLORIDE 111 mmol/L (98-107); COR CA(FOR HYPOALB) 10.3 mg/dL (8.5-10.1); COR NA(FOR HYPERGLY) 142 mmol/L (136-145); CREATININE 0.65 mg/dL (0.55-1.02); SODIUM 141 mmol/L (136-145); TOTAL PROTEIN 5.7 g/dL (6.4-8.2); eGFR NON BLACK RACES > 60 (>60)
--- NOTE | 2022-05-12 07:57 | PCM.PROG ---
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 This morning patient remains on the mechanical ventilator. Yesterday, she had to be placed back on vasopressors Levophed gtt to maintain MAP >65. Attempt was made to extubate that was unsuccessful. Pt's oxygen saturation would rapidly decrease. She is sedated with propofol, has central line and NGT placed. Labs/imaging: Wbc 9.3, Hgb 8.8, Plt 255, Na 140, K 4.0, Creatinine 0.75, Glucose 181, ABG: pH 7.43, pCO2 31, pO2 83, HCO3 20, O2sat 96% on FiO2 30%. Wound culture positive for staph aureus, proteus mirabilis, and enterobacter cloacae. CXR was obtained that revealed: Diffuse right lung infiltrate.Decreasing right pleural effusion. Persistent increased density retrocardiac area left lower lobe. Differential diagnosis as above. Finding is unchanged. Pt is currently receiving: IVF NS@75ml/h, IV antibiotics Vancomycin, Levaquin, SSI. Repeat blood cultures obtained on 05/05 without growth at this time. Will attempt again to extubate patient. If unsuccessful will need to discuss goals of care with family. Pt is a limited DNR. Otherwise, continue with current treatment plan. Continue to closely monitor and follow up labs/imaging. Critical care time spent on clinical assessment, reviewing labs and imaging, decision making, and documentation greater than 75 minutes. Past Medical Family Social History Past Med/Fam/Surg Hx: No changes since H&P Allergies: Allergies No Known Drug Allergies Allergy (Verified 05/01/22 09:52) Review of Systems ROS: Changes notes (describe) (See HPI) Vital Signs and I&O's Vital Signs: Temperature 98.8 F Pulse Rate [Right Radial] 80 Pulse Rate 79 Respiratory Rate 25 Blood Pressure [Right Arm] 138/90 Blood Pressure 126/63 O2 Sat by Pulse Oximetry 94 Intake and Output: Intake & Output 05/09/22 05/10/22 05/11/2220/22 23:59 23:59 23:59 23:59 Intake Total 2901 / 2901 2671 / 2671 2770 / 2770 667 / 667 Output Total 2393 / 2393 1648 / 1648 3050 / 3050 400 / 400 Balance 508 / 508 1023 / 1023 -280 / -280 267 / 267 Physical Exam Oriented: Unable to test (Pt is intubated now ..) Eyes: Normal Ear: Normal Nose: Normal Throat: Normal Respiratory: OTHER (infected median sternotomy incision with active drainage .) Cardiovascular: Normal : Normal Auscultation: Bowel Sounds: Normal Tenderness: Normal Skin: Wound (dehiscence of median sternotomy incision with large abscess ) Musculoskeletal: Normal Psychiatric: Normal Mood Description: Calm and Appropriate Affect: Normal Speech Pattern: Artificially Ventilated Laboratory and Diagnostics Result Diagrams: 05/12/22 04:24 05/12/22 04:24 Labs: 05/05/22 10:56 Blood Blood Culture - Final 05/05/22 08:36 Blood Blood Culture - Final 05/06/22 08:55 Sputum - Endotracheal Wash Sputum Culture - Preliminary 05/06/22 08:55 Sputum - Endotracheal Wash - Final 05/01/22 09:27 Blood Blood Culture - Final 05/01/22 09:15 Blood Blood Culture - Final Enterobacter Cloacae 05/01/22 10:00 Chest Wound Gram Stain - Final 05/01/22 10:00 Chest Wound Culture - Final Proteus Mirabilis Staphylococcus Aureus Enterobacter Cloacae 05/01/22 07:19 Urine,Catheterized Urine Culture - Final Proteus Mirabilis Laboratory WBC 10.8 X10^3/uL (3.6-10.0) H 05/12/22 04:24 RBC 3.28 X10^6/uL (3.5-5.4) L 05/12/22 04:24 Hgb 8.5 g/dL (12.0-16.0) L 05/12/22 04:24 Hct 25.5 % (36.0-47.0) L 05/12/22 04:24 MCV 77.7 fL (80.0-100.0) L 05/12/22 04:24 MCH 25.9 pg (27.0-34.0) L 05/12/22 04:24 MCHC 33.3 g/dL (33.0-35.0) 05/12/22 04:24 RDW 17.3 % (11.6-16.5) H 05/12/22 04:24 Plt Count 232 X10^3/uL (150.0-450.0) 05/12/22 04:24 Plt Count Comment Decreased (ADEQUATE) A 05/02/22 04:00 MPV 8.5 fL (7.4-11.0) 05/12/22 04:24 Neut % (Auto) 68.6 % (42.0-75.0) 05/12/22 04:24 Lymph % (Auto) 18.4 % (21.0-51.0) L 05/12/22 04:24 [place] % (Auto) 8.9 % (0.0-13.0) 05/12/22 04:24 Eos % (Auto) 3.3 % (0.9-2.9) H 05/12/22 04:24 Baso % (Auto) 0.8 % (0.2-1.0) 05/12/22 04:24 Neut # (Auto) 7.4 x10^3/uL (2.2-4.8) H 05/12/22 04:24 Lymph # (Auto) 2.0 X10^3/uL (1.3-2.9) 05/12/22 04:24 [place] # (Auto) 1.0 x10^3/uL (0.3-0.8) H 05/12/22 04:24 Eos # (Auto) 0.4 x10^3/uL (0.0-0.2) H 05/12/22 04:24 Baso # (Auto) 0.1 X10^3/uL (0.0-0.1) 05/12/22 04:24 Absolute Nucleated RBC 0.0 /100WBC 05/12/22 04:24 Total Counted 100 05/02/22 04:00 Neutrophils % (Manual) 78 % (39-76) H 05/02/22 04:00 Lymphocytes % (Manual) 15 % (13-43) 05/02/22 04:00 Monocytes % (Manual) 5 % (4-9) 05/02/22 04:00 Eosinophils % (Manual) 2 % (0-6) 05/02/22 04:00 Atypical Lymphocytes Few A 05/02/22 04:00 Plt Morphology Comment Normal (NORMAL) 05/02/22 04:00 RBC Morphology Abnormal (NORMAL) A 05/02/22 04:00 Hypochromasia Slight A 05/01/22 09:27 Anisocytosis Slight A 05/02/22 04:00 Microcytosis Slight A 05/01/22 09:27 Sample Site Rr 05/12/22 04:55 ABG pH 7.430 (7.35-7.45) 05/12/22 04:55 ABG pCO2 31.0 mmHg (35.0-45.0) L 05/12/22 04:55 ABG pO2 80.0 mmHg (80.0-100.0) 05/12/22 04:55 ABG HCO3 20.6 mmol/L (22-26) L 05/12/22 04:55 ABG O2 Saturation 96.0 % (90-100) 05/12/22 04:55 ABG Base Excess -2.8 mmol/L (-2.0-2.0) L 05/12/22 04:55 Cristobal Test Pos 05/12/22 04:55 A-a Gradient 60.0 mmHg 05/12/22 04:55 FiO2 25.0 05/12/22 04:55 Blood Gas Comments Luis well ae 05/12/22 04:55 Sodium 141 mmol/L (136-145) 05/12/22 04:24 Corrected Sodium 142 mmol/L (136-145) 05/12/22 04:24 Potassium 4.0 mmol/L (3.5-5.1) 05/12/22 04:24 Chloride 111 mmol/L (98-107) H 05/12/22 04:24 Carbon Dioxide 23.8 mmol/L (21-32) 05/12/22 04:24 BUN 15 mg/dL (7-18) 05/12/22 04:24 Creatinine 0.65 mg/dL (0.55-1.02) 05/12/22 04:24 Est GFR (MDRD) Af Amer > 60 (>60) 05/12/22 04:24 Est GFR (MDRD) Non-Af > 60 (>60) 05/12/22 04:24 Glucose 162 mg/dL (65-99) H 05/12/22 04:24 POC Glucose (mg/dL) 198 mg/dL (65-99) H 05/11/22 20:29 Lactic Acid 2.2 mmol/L (0.4-2.0) H 05/05/22 08:56 Calcium 8.1 mg/dL (8.5-10.1) L 05/12/22 04:24 Corrected Calcium 10.3 mg/dL (8.5-10.1) H 05/12/22 04:24 Magnesium 1.9 mg/dL (1.7-2.9) 05/10/22 04:45 Total Bilirubin 0.20 mg/dL (0.2-1.0) 05/12/22 04:24 AST 30 Units/L (15-37) 05/12/22 04:24 ALT 15 Units/L (12-78) 05/12/22 04:24 Alkaline Phosphatase 100 Units/L (46-116) 05/12/22 04:24 Creatine Kinase 21 Units/L (26-192) L 05/04/22 21:12 CK-MB (CK-2) 1.0 ng/mL (0-4.0) 05/04/22 21:12 CK/CKMB % Calc 4.8 % (<4) 05/04/22 21:12 Troponin I High Sens 10.0 ng/L (4.0-60.0) 05/04/22 21:12 Total Protein 5.7 g/dL (6.4-8.2) L 05/12/22 04:24 Albumin 1.3 g/dL (3.4-5.0) L 05/12/22 04:24 Globulin 4.4 g/dL (2.5-4.5) 05/12/22 04:24 Albumin/Globulin Ratio 0.3 Ratio (1.1-2.1) L 05/12/22 04:24 Specimen Type Catherized urine 05/01/22 07:19 Urine Color Yellow (YELLOW) 05/01/22 07:19 Urine Appearance Hazy (CLEAR) 05/01/22 07:19 Urine pH 8.0 (5.0 - 8.0) 05/01/22 07:19 Ur Specific [place] 1.010 (1.000-1.030) 05/01/22 07:19 Urine Protein 3+ (NEGATIVE) 05/01/22 07:19 Urine Glucose (UA) 3+ (NEGATIVE) 05/01/22 07:19 Urine Ketones Negative (NEGATIVE) 05/01/22 07:19 Urine Blood 3+ (NEGATIVE) 05/01/22 07:19 Urine Nitrite Positive (NEGATIVE) 05/01/22 07:19 Urine Bilirubin Negative (NEGATIVE) 05/01/22 07:19 Urine Urobilinogen Normal (NORMAL) 05/01/22 07:19 Ur Leukocyte Esterase 3+ (NEGATIVE) 05/01/22 07:19 Urine RBC 10-20 /HPF (0-3) A 05/01/22 07:19 Urine WBC Tntc /HPF (0-5) A 05/01/22 07:19 Ur Squamous Epith Cells Negative /HPF (NEGATIVE) 05/01/22 07:19 Urine Bacteria 4+ /HPF (NEGATIVE) 05/01/22 07:19 Ur Culture Indicated? Yes/culture set up 05/01/22 07:19 Stool Description Soft brown 05/10/22 17:15 Stl Occult Blood (IFOB) Negative (NEGATIVE) 05/10/22 17:15 Stl C. diff Tox B Gene Negative (NEGATIVE) 05/10/22 17:15 Stl C. diff [id number] Presumptive negative (NEGATIVE) 05/10/22 17:15 Vancomycin Trough 10.7 ug/mL (15-20) L 05/10/22 09:00 SARS-CoV-2 (PCR) Negative (NEGATIVE) 05/01/22 14:18 Plan (1) Bacteremia due to Enterobacter species: Status: Acute Plan: CONTINUE IV ANTIBIOTICS, IV HYDRATION, MECHANICAL VENTILATION/OXYGEN SUPPORT, WOUND CARE, SKIN CARE STRICT I&OS, DOMINIQUE CATH CARE CONTINUOUS CARDIAC AND BP MONITORING AM LABS, CXR AND ABG (2) CAD (coronary artery disease): Status: Acute (3) Acute respiratory failure: Status: Acute (4) Dehiscence of closure of sternum or sternotomy: Status: Acute (5) Infected surgical wound: Status: Acute (6) UTI (urinary tract infection): Status: Acute
[2022-05-12] MEDS: LOVENOX INJ 40 MG SYR SC SCH (08:36)
[2022-05-12] MEDS: LEVAQUIN PREMIX IV 750 MG 750 MG/150 ML BAG IV SCH (08:36)
[2022-05-12] MEDS ORDERED: HYDROGEN PEROXIDE 3% ONE (10:01)
[2022-05-12] MEDS ORDERED: NS IRRIGATION* 500 ML IR ONE ×2 (10:04→12:51)
--- NOTE | 2022-05-12 11:12 | DR.PROGNOT ---
Hospital Progress Notes - Progress Note for Day of: Progress Note Date: 05/12/22 - Chief Complaint Chief Complaint: still having excessive drainage from the chest incision .. dressing ere changed . the abscess cavity ( 16 cm ) was irrigated with saline and H2O2 and cleaned as much as possible . packed with Iodoform .. - Past Medical Family Social History Past Med/Fam/Surg Hx: No changes since H&P Allergies: Allergies No Known Drug Allergies Allergy (Verified 05/01/22 09:52) - Review Of Systems ROS: Changes notes (describe) (See HPI) - Vital Signs Vital Signs: Temperature 98.8 F Pulse Rate [Right Radial] 80 Pulse Rate 79 Respiratory Rate 15 Blood Pressure [Right Arm] 138/90 Blood Pressure 126/63 O2 Sat by Pulse Oximetry 94 - Physical Exam Oriented: Unable to test (Pt is intubated now ..) Eyes: Normal Ear: Normal Nose: Normal Throat: Normal Respiratory: OTHER (infected median sternotomy incision with active drainage .) Cardiovascular: Normal : Normal GI:Auscultation: Normal GI:Palpation: Normal GI: Tenderness: Normal Skin: Wound (dehiscence of median sternotomy incision with large abscess) Musculoskeletal: Normal Psychiatric: Normal Mood Description: Calm, Appropriate Affect: Normal Speech Pattern: Artificially Ventilated - Laboratory and Diagnostics Result Diagrams: 05/12/22 04:24 05/12/22 04:24 Labs: 05/05/22 10:56 Blood Blood Culture - Final 05/05/22 08:36 Blood Blood Culture - Final 05/06/22 08:55 Sputum - Endotracheal Wash Sputum Culture - Preliminary 05/06/22 08:55 Sputum - Endotracheal Wash - Final 05/01/22 09:27 Blood Blood Culture - Final 05/01/22 09:15 Blood Blood Culture - Final Enterobacter [place]ae 05/01/22 10:00 Chest Wound Gram Stain - Final 05/01/22 10:00 Chest Wound Culture - Final Proteus Mirabilis Staphylococcus Aureus Enterobacter [place]acae 05/01/22 07:19 Urine,Catheterized Urine Culture - Final Proteus Mirabilis Laboratory WBC 10.8 X10^3/uL (3.6-10.0) H 05/12/22 04:24 RBC 3.28 X10^6/uL (3.5-5.4) L 05/12/22 04:24 Hgb 8.5 g/dL (12.0-16.0) L 05/12/22 04:24 Hct 25.5 % (36.0-47.0) L 05/12/22 04:24 MCV 77.7 fL (80.0-100.0) L 05/12/22 04:24 MCH 25.9 pg (27.0-34.0) L 05/12/22 04:24 MCHC 33.3 g/dL (33.0-35.0) 05/12/22 04:24 RDW 17.3 % (11.6-16.5) H 05/12/22 04:24 Plt Count 232 X10^3/uL (150.0-450.0) 05/12/22 04:24 Plt Count Comment Decreased (ADEQUATE) A 05/02/22 04:00 MPV 8.5 fL (7.4-11.0) 05/12/22 04:24 Neut % (Auto) 68.6 % (42.0-75.0) 05/12/22 04:24 Lymph % (Auto) 18.4 % (21.0-51.0) L 05/12/22 04:24 [place] % (Auto) 8.9 % (0.0-13.0) 05/12/22 04:24 Eos % (Auto) 3.3 % (0.9-2.9) H 05/12/22 04:24 Baso % (Auto) 0.8 % (0.2-1.0) 05/12/22 04:24 Neut # (Auto) 7.4 x10^3/uL (2.2-4.8) H 05/12/22 04:24 Lymph # (Auto) 2.0 X10^3/uL (1.3-2.9) 05/12/22 04:24 [place] # (Auto) 1.0 x10^3/uL (0.3-0.8) H 05/12/22 04:24 Eos # (Auto) 0.4 x10^3/uL (0.0-0.2) H 05/12/22 04:24 Baso # (Auto) 0.1 X10^3/uL (0.0-0.1) 05/12/22 04:24 Absolute Nucleated RBC 0.0 /100WBC 05/12/22 04:24 Total Counted 100 05/02/22 04:00 Neutrophils % (Manual) 78 % (39-76) H 05/02/22 04:00 Lymphocytes % (Manual) 15 % (13-43) 05/02/22 04:00 Monocytes % (Manual) 5 % (4-9) 05/02/22 04:00 Eosinophils % (Manual) 2 % (0-6) 05/02/22 04:00 Atypical Lymphocytes Few A 05/02/22 04:00 Plt Morphology Comment Normal (NORMAL) 05/02/22 04:00 RBC Morphology Abnormal (NORMAL) A 05/02/22 04:00 Hypochromasia Slight A 05/01/22 09:27 Anisocytosis Slight A 05/02/22 04:00 Microcytosis Slight A 05/01/22 09:27 Sample Site Rr 05/12/22 04:55 ABG pH 7.430 (7.35-7.45) 05/12/22 04:55 ABG pCO2 31.0 mmHg (35.0-45.0) L 05/12/22 04:55 ABG pO2 80.0 mmHg (80.0-100.0) 05/12/22 04:55 ABG HCO3 20.6 mmol/L (22-26) L 05/12/22 04:55 ABG O2 Saturation 96.0 % (90-100) 05/12/22 04:55 ABG Base Excess -2.8 mmol/L (-2.0-2.0) L 05/12/22 04:55 Cristobal Test Pos 05/12/22 04:55 A-a Gradient 60.0 mmHg 05/12/22 04:55 FiO2 25.0 05/12/22 04:55 Blood Gas Comments Luis well ae 05/12/22 04:55 Sodium 141 mmol/L (136-145) 05/12/22 04:24 Corrected Sodium 142 mmol/L (136-145) 05/12/22 04:24 Potassium 4.0 mmol/L (3.5-5.1) 05/12/22 04:24 Chloride 111 mmol/L (98-107) H 05/12/22 04:24 Carbon Dioxide 23.8 mmol/L (21-32) 05/12/22 04:24 BUN 15 mg/dL (7-18) 05/12/22 04:24 Creatinine 0.65 mg/dL (0.55-1.02) 05/12/22 04:24 Est GFR (MDRD) Af Amer > 60 (>60) 05/12/22 04:24 Est GFR (MDRD) Non-Af > 60 (>60) 05/12/22 04:24 Glucose 162 mg/dL (65-99) H 05/12/22 04:24 POC Glucose (mg/dL) 198 mg/dL (65-99) H 05/11/22 20:29 Lactic Acid 2.2 mmol/L (0.4-2.0) H 05/05/22 08:56 Calcium 8.1 mg/dL (8.5-10.1) L 05/12/22 04:24 Corrected Calcium 10.3 mg/dL (8.5-10.1) H 05/12/22 04:24 Magnesium 1.9 mg/dL (1.7-2.9) 05/10/22 04:45 Total Bilirubin 0.20 mg/dL (0.2-1.0) 05/12/22 04:24 AST 30 Units/L (15-37) 05/12/22 04:24 ALT 15 Units/L (12-78) 05/12/22 04:24 Alkaline Phosphatase 100 Units/L (46-116) 05/12/22 04:24 Creatine Kinase 21 Units/L (26-192) L 05/04/22 21:12 CK-MB (CK-2) 1.0 ng/mL (0-4.0) 05/04/22 21:12 CK/CKMB % Calc 4.8 % (<4) 05/04/22 21:12 Troponin I High Sens 10.0 ng/L (4.0-60.0) 05/04/22 21:12 Total Protein 5.7 g/dL (6.4-8.2) L 05/12/22 04:24 Albumin 1.3 g/dL (3.4-5.0) L 05/12/22 04:24 Globulin 4.4 g/dL (2.5-4.5) 05/12/22 04:24 Albumin/Globulin Ratio 0.3 Ratio (1.1-2.1) L 05/12/22 04:24 Specimen Type Catherized urine 05/01/22 07:19 Urine Color Yellow (YELLOW) 05/01/22 07:19 Urine Appearance Hazy (CLEAR) 05/01/22 07:19 Urine pH 8.0 (5.0 - 8.0) 05/01/22 07:19 Ur Specific [place] 1.010 (1.000-1.030) 05/01/22 07:19 Urine Protein 3+ (NEGATIVE) 05/01/22 07:19 Urine Glucose (UA) 3+ (NEGATIVE) 05/01/22 07:19 Urine Ketones Negative (NEGATIVE) 05/01/22 07:19 Urine Blood 3+ (NEGATIVE) 05/01/22 07:19 Urine Nitrite Positive (NEGATIVE) 05/01/22 07:19 Urine Bilirubin Negative (NEGATIVE) 05/01/22 07:19 Urine Urobilinogen Normal (NORMAL) 05/01/22 07:19 Ur Leukocyte Esterase 3+ (NEGATIVE) 05/01/22 07:19 Urine RBC 10-20 /HPF (0-3) A 05/01/22 07:19 Urine WBC Tntc /HPF (0-5) A 05/01/22 07:19 Ur Squamous Epith Cells Negative /HPF (NEGATIVE) 05/01/22 07:19 Urine Bacteria 4+ /HPF (NEGATIVE) 05/01/22 07:19 Ur Culture Indicated? Yes/culture set up 05/01/22 07:19 Stool Description Soft brown 05/10/22 17:15 Stl Occult Blood (IFOB) Negative (NEGATIVE) 05/10/22 17:15 Stl C. diff Tox B Gene Negative (NEGATIVE) 05/10/22 17:15 Stl C. diff [id number] Presumptive negative (NEGATIVE) 05/10/22 17:15 Vancomycin Trough 10.7 ug/mL (15-20) L 05/10/22 09:00 SARS-CoV-2 (PCR) Negative (NEGATIVE) 05/01/22 14:18 - Assessment and Plan 2: infected median sternotomy incision with dehisced incision and deep abscess . same local care : change dressing TID and repack .. IV ABT to cover the Staph and Enterobac . nutritional support and control of DM .. needs nutritional support . - Problem Patient Problems: Patient Problems CAD (coronary artery disease) (Acute) I25.10 Acute respiratory failure (Acute) J96.00 Bacteremia due to Enterobacter species (Acute) R78.81, B96.89 Dehiscence of closure of sternum or sternotomy (Acute) T81.32XA Acute dehydration (Acute) E86.0 Acute hyponatremia (Acute) E87.1 Infected surgical wound (Acute) T81.49XA UTI (urinary tract infection) (Acute) N39.0
[2022-05-12] MEDS ORDERED: ALBUMIN HUMAN 25%- 100 ML 100 ML IV ONE (11:13)
[2022-05-12] MEDS: ASPIRIN EC 81 MG PO SCH (11:30)
[2022-05-12] MEDS: LIPITOR TAB 40 MG PO SCH (11:31)
[2022-05-12] MEDS: CORDARONE TAB 200 MG PO SCH (11:31)
[2022-05-12] MEDS: POTASSIUM CHLORIDE LIQ 20 MEQ UDC NG SCH (11:31)
[2022-05-12] MEDS: ZEBETA TAB 5 MG PO SCH (11:32)
[2022-05-12] MEDS: VANCOMYCIN IV *PREMIX 1.25 G/250 ML BAG 1.25 G/250 ML PIGGYBACK IV SCH (11:38)
[2022-05-12] MEDS: LASIX IVP SCH ×2 (11:38→16:33)
[2022-05-12] MEDS ORDERED: HYDROGEN PEROXIDE 3% EXT ONE (12:51)
[2022-05-12] MEDS ORDERED: VALIUM INJ IVP PRN (15:10)
[2022-05-12] MEDS ORDERED: MORPHINE SULFATE INJ 4 MG IVP PRN (15:11)
[2022-05-12 16:39] VITALS: BP 32/15
[2022-05-13] MEDS ORDERED: PHARMACY COMMENT IV ONE (09:00)
== END 2022-05-12 18:05 | disposition expired | DRG 870 ==
LOC: ER 07:35 → MED/SURG 07:35 → ICU 05-04 22:59
PROVIDERS: ADMIT Internal Medicine; ATTEND Family Medicine
DX: R26.89 Other abnormalities of gait and mobility; T81.49XA Infection following a procedure, other surgical site, initial encounter; I10 Essential (primary) hypertension; N30.00 Acute cystitis without hematuria; E86.0 Dehydration; B96.4 Proteus (mirabilis) (morganii) as the cause of diseases classified elsewhere; E11.65 Type 2 diabetes mellitus with hyperglycemia; Z66 Do not resuscitate; B95.61 Methicillin susceptible Staphylococcus aureus infection as the cause of diseases classified elsewhere; I25.10 Atherosclerotic heart disease of native coronary artery without angina pectoris; B96.89 Other specified bacterial agents as the cause of diseases classified elsewhere; Z20.822 Contact with and (suspected) exposure to COVID-19; I46.9 Cardiac arrest, cause unspecified; Z51.5 Encounter for palliative care; I48.91 Unspecified atrial fibrillation; R53.1 Weakness; Z79.899 Other long term (current) drug therapy; Z79.4 Long term (current) use of insulin; A41.59 Other Gram-negative sepsis; E87.1 Hypo-osmolality and hyponatremia; T81.31XA Disruption of external operation (surgical) wound, not elsewhere classified, initial encounter; E78.2 Mixed hyperlipidemia; J90 Pleural effusion, not elsewhere classified; Z95.1 Presence of aortocoronary bypass graft; J96.00 Acute respiratory failure, unspecified whether with hypoxia or hypercapnia